=== PATIENT | female | born 1975 | race Caucasian/White ===

== ENCOUNTER 2024-04-29 13:39 | Inpatient (IN) ==
--- NOTE | 2024-04-29 13:54 | ED Triage Note ---
Date of Service April 29, 2024 Provider in Triage Author: Savannah Gonzalez History of Present Illness This patient was briefly evaluated while in triage. An abbreviated physical exam was performed. This patient is a 49-year-old Female who presents to the ED for evaluation sore throat x 2 days, physician is concerned for a COAL DIGGER - hx of 3 last year, treated supportively, never had I&D strep negative on Taltz for Physical Exam GENERAL: NAD ENT: left tonsillar/peritonsillar erythema, swelling, uvular deviation to the left, no trismus CARDIOVASCULAR: RRR RESPIRATORY: CTA Initial orders for labs and / or imaging were placed and patient was placed in the waiting area until a bed is available. Please see further documentation for the full ED course.
[2024-04-29 14:56] LABS: iSTAT Creatinine 0.8 mg/dl (0.6-1.3); iSTAT Ionized Calcium 1.16 mmol/l (1.12-1.32); iSTAT Potassium 4.2 mmol/L (3.3-5.0)
[2024-04-29 15:06] LABS: Basophils # (auto) 0.04 K/uL (0.00-0.20); Basophils % (auto) 0.3 %; Eosinophils # (auto) 0.09 K/uL (0.00-0.50); Eosinophils % (auto) 0.7 %; Hematocrit (blood only) 42.9 % (37.0-47.0); Hemoglobin 14.3 g/dl (12.0-16.0); Immature Granulocytes # (auto) 0.03 K/uL (0.01-0.20); Immature Granulocytes % (auto) 0.2 %; Lymphocytes # (auto) 1.07 K/uL (1.20-3.40); Lymphocytes % (auto) 8.8 %; Mean Corpuscular Hemoglobin 27.8 pg (25.0-34.0); Mean Corpuscular Hgb Conc 33.3 g/dL (32.0-36.0); Mean Corpuscular Volume 83.3 fL (80.0-100.0); Mean Platelet Volume 11.4 fL (9.4-12.4); Monocytes # (auto) 0.95 K/uL (0.11-0.59); Monocytes % (auto) 7.8 %; Neutrophils % (auto) 82.2 %; Platelet Count 231 K/uL (130-400); RDW Coefficient of Variation 13.3 % (11.5-14.5); RDW Standard Deviation 41.1 fL (36.4-46.3); Red Blood Count 5.15 M/uL (4.20-5.40); White Blood Count 12.18 K/ul (4.8-10.8)
[2024-04-29] MEDS: OPTIRAY 320 100ml IV ONE (15:10)
[2024-04-29 15:16] LABS: Albumin Globulin Ratio 1.3 (0.9-2); Albumin Level 4.4 gm/dl (3.4-5.0); BUN Creatinine Ratio 14.1 (10-20); Bilirubin,Total 0.9 mg/dl (0.2-1.0); Calcium 9.8 mg/dl (8.6-10.3); Creatinine Clr Calc Pharmacy 95.9 ml/min; Globulin 3.5 gm/dl (2.5-4.0); Potassium 4.2 mmol/L (3.5-5.1); Total Protein 7.9 gm/dl (6.0-8.3)
[2024-04-29] MEDS: SODIUM CHLORIDE 0.9% 1,000 ML IV ONE (15:25)
[2024-04-29 15:29] LABS: Prothrombin Time 10.9 Seconds (9.0-12.0)
--- NOTE | 2024-04-29 15:55 | CT Scan Report ---
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 A dose lowering technique was used consistent with the principals of BERNARDO. FINDINGS: The imaged intracranial structures appear unremarkable. Unremarkable parotid,, submandibular and thyr oid glands. The vasculature of the neck is within normal limits. Enlargement of the left greater than right palatine tonsils. There is a peripherally enhancing thick-walled complex left peritonsillar co llection measuring 1.6 x 2.1 x 2.5 cm on image 117 series 3. There is moderate mass effect upon the a djacent airway with partial effacement.r bilateral cervical chain lymph nodes measure up to approxima tely 11 mm in short axis. Prevertebral tissues are unremarkable. Lung apices appear clear. No pneumothorax. Moderate intervertebral disc space narrowing with circumfe rential disc osteophyte complex at C6/C7. No acute fracture. IMPRESSION: 1. Acute tonsillitis with 2.5 cm left peritonsillar abscess resulting in moderate narrowing of the ai rway. 2. Enlarged cervical chain lymph nodes are likely reactive. ACT 112: Negative or not required by law. The above report was generated using voice recognition software. It may contain grammatical, syntax o r spelling errors. Electronically signed by: Sascha Romero M.D. 04/29/2024 3:53 PM
--- NOTE | 2024-04-29 15:57 | Emergency Department Note ---
History of Present Illness General Chief complaint: Sore Throat Stated complaint: TONSILITIS WITH AN ABCESS, SORE THROAT Time Seen by Provider: 04/29/24 15:10 History of Present Illness Maximum Pain Intensity: 8 This is a 49-year-old female that presents to the emergency department via private vehicle with complaints of "sore throat". The patient notes that she was referred in for suspected peritonsillar abscess on the left. Sore throat began on Saturday. It is unilateral in nature. She does have a history of CASING PULLER, which have responded well to medical therapy without requiring I&D. Patient notes she is currently on Taltz for ankylosing spondylitis. She is not currently antibiotics. She denies any fever. She notes decreased oral intake secondary to pain and has had very little to drink today. Home Medications Medication Instructions Recorded Confirmed Type atorvastatin 20 mg tablet (Lipitor) 20 mg PO QAM 03/31/24 04/29/24 History bupropion HCl 300 mg 24 hr tablet, 300 mg PO QAM 03/31/24 04/29/24 History extended release (Wellbutrin XL) diclofenac sodium 75 mg 75 mg PO BID 03/31/24 04/29/24 History tablet,delayed release ixekizumab 80 mg/mL subcutaneous 80 mg subcut UD 03/31/24 04/29/24 History auto-injector (Taltz Autoinjector) levocetirizine 5 mg tablet (Xyzal) 5 mg PO QAM 03/31/24 04/29/24 History pantoprazole 40 mg tablet,delayed 40 mg PO QAM 03/31/24 04/29/24 History release (Protonix) pregabalin 100 mg capsule (Lyrica) 100 mg PO BID 03/31/24 04/29/24 History Allergies Allergy/AdvReac Type Severity Reaction Status Date / Time amoxicillin Allergy Rash Verified 04/13/24 08:35 contact metal agent AdvReac contact Verified 04/13/24 08:35 dermatitis Past Med/Surg History Problem List (Updated 04/30/24 @ 00:13 by Lucas Barajas PA-C) Tobacco use Ankylosing spondylitis Elevated blood pressure reading Tonsillitis (Acute) Peritonsillar abscess (Acute) Symptomatic cholelithiasis Medical History Depression with anxiety Fatty liver Cigarette smoker Morbid obesity History of mononucleosis dx 03/29/24; pt was prescribed Cefdinir x 10d Neuropathy Chronic pain Spondyloarthritis Anxiety and depression Hyperlipidemia GERD (gastroesophageal reflux disease) Surgical History History of cholecystectomy History of endometrial ablation History of open reduction and internal fixation (ORIF) procedure right ankle > hardware intact History of esophagogastroduodenoscopy (EGD) Hx of colonoscopy ~2022 Hx of LASIK Social History Smoking Status: Current every day smoker Tobacco Type: Cigarettes Cigarettes Per Day: 1/2 PPD; Second Hand Exposure: No; Do You Dip or Chew Tobacco: No; Hx Alcohol Use: No Hx Substance Use: Yes Prescribed Medications: Marijuana Last Used Substance: Days (ago) Last Used Substance Other:: uses daily Substance Use Type Other:: medical marijuana Preferred Language: Emir[place] Communication Ability: Effective Photo Printer Required: No Beliefs That Will Affect Care: None Current Living Situation: Spouse Feels Safe at Home: Yes Assistive Devices: Cane Review of Systems A total of 10 systems reviewed and were otherwise negative Physical Exam Vital Signs Vital Signs - 24 hr 04/29/24 13:52 04/29/24 16:40 Temperature 37.6 C H Temperature Source Oral Pulse Rate 120 H Pulse Rate [Finger] 102 H Respiratory Rate 18 15 Respiratory Effort / Characteristics Non-Labored Spontaneous Respiratory Depth Normal Blood Pressure 175/114 H Blood Pressure [Right Arm] 172/110 H Blood Pressure Mean 134 Blood Pressure Mean [Right Arm] 130 Pulse Oximetry 95 99 Oxygen Delivery Method Room Air Room Air Sepsis Recent Fever Within 48 Hours No Sepsis New/Unexplained Change in Mental Status No Sepsis Action Taken by Nursing No Action Required VITAL SIGNS - Vital signs and nursing notes were reviewed. Tachycardic, borderline febrile. GENERAL -49-year-old female appearing her stated age who is in no acute distress. Communicates well with provider and answers questions appropriately. SKIN - Without rashes. No meningeal or petechial rash. HEAD - NC/AT. EYES - PERRL with EOMI bilaterally. Sclera anicteric. EARS - No deformities of external structures noted on gross examination bilaterally. External auditory canals without discharge or otorrhea. Tympanic membranes pearly hernandez without retraction or bulging. No fluid or purulent material visualized behind the TM. Handle of malleus, umbo, cone of light, pars tensa/flaccid all easily visualized. NOSE - Midline and without cyanosis. No epistaxis or purulent drainage noted. Septum midline without deviation or septal hematoma noted. MOUTH/OROPHARYNX - Without perioral cyanosis. Buccal mucosa pink and moist and without leukoplakia. Tongue midline with equal elevation of palate bilaterally. There is asymmetric left-sided tonsillar edema, erythema with soft palate involvement. Uvula is midline. There is no drooling. No stridor. Mild trismus. No wheezing. No tripoding. Mild muffled voice noted. Fair dentition noted. NECK - Neck with FROM. Left greater than right anterior cervical lymphadenopathy noted. No nuchal rigidity. LUNGS - Chest wall symmetric without accessory muscle use, intercostals retractions, or central cyanosis. Normal vesicular breath sounds CTA B/L. No wheezes, rales, or rhonchi appreciated. CARDIAC - RRR NEUROLOGIC - Cranial nerves II through XII grossly intact. PSYCH -alert, oriented and pleasant on exam Course Administered Medications Diclofenac Sodium (Diclofenac Sodium 75 Mg Tabcr) 75 mg PO BID [facility] Stop: 05/29/24 20:59 Last Admin: 04/29/24 21:33 Dose: 75 mg Documented By: KELLIE Sodium Chloride (Nss) 1,000 mls @ 60 mls/hr IV .[id number] [facility] Stop: 04/30/24 09:09 Last Admin: 04/29/24 18:20 Dose: 125 mls/hr Documented By: DONATO Clindamycin Phosphate (Cleocin/D5w) 300 mg in 50 mls @ 100 mls/hr IV Q8H [facility] Stop: 05/10/24 00:00 Last Infusion: 04/29/24 23:24 Dose: Infused Documented By: Admin: 04/29/24 22:53 Dose: 100 mls/hr Documented By: KELLIE Lactobacillus Acidophilus (Advanced Probiotic 625 Mg Capsule) 1,250 mg PO DAILY [facility] Stop: 05/29/24 18:14 Last Admin: 04/29/24 18:29 Dose: 1,250 mg Documented By: DONATO Nicotine (Nicotine 14 Mg/24 Hr Patch) 1 patch TD QAM [facility] Stop: 05/29/24 18:14 Last Admin: 04/29/24 18:29 Dose: 1 patch Documented By: DONATO Pregabalin (Pregabalin 100 Mg Cap) 100 mg PO BID [facility] Stop: 05/29/24 20:59 Last Admin: 04/29/24 21:34 Dose: 100 mg Documented By: KELLIE Discontinued Medications Acetaminophen (Acetaminophen 500 Mg Tab) 1,000 mg PO NOW STA Stop: 04/29/24 17:21 Last Admin: 04/29/24 17:41 Dose: 1,000 mg Documented By: VICKIE Dexamethasone Sodium Phosphate (DexamethasonePf 10 Mg/Ml Vial) 10 mg IV NOW ONE Stop: 04/29/24 16:50 Last Admin: 04/29/24 17:00 Dose: 10 mg Documented By: VICKIE Sodium Chloride (Nss) 1,000 mls @ 999 mls/hr IV .Q1H1M ONE Stop: 04/29/24 16:17 Last Infusion: 04/29/24 16:38 Dose: Infused Documented By: Admin: 04/29/24 15:25 Dose: 999 mls/hr Documented By: VICKIE Clindamycin Phosphate (Cleocin/D5w) 900 mg in 50 mls @ 100 mls/hr IV NOW ONE Stop: 04/29/24 15:46 Last Infusion: 04/29/24 17:11 Dose: Infused Documented By: Admin: 04/29/24 16:39 Dose: 100 mls/hr Documented By: VICKIE Ioversol (Optiray 320 100ml) 90 ml IV ONCE ONE Stop: 04/29/24 15:11 Last Admin: 04/29/24 15:10 Dose: 90 ml Documented By: JUSTIN Morphine Sulfate (Morphine Sulfate 2 Mg/Ml Carp) 2 mg IV NOW STA Stop: 04/29/24 16:55 Last Admin: 04/29/24 17:00 Dose: 2 mg Documented By: VICKIE Zolpidem Tartrate (Zolpidem Tartrate 5 Mg Tab) 5 mg PO NOW STA Stop: 04/29/24 22:26 Last Admin: 04/29/24 22:53 Dose: 5 mg Documented By: KELLIE Medical Decision Making Laboratory Data 04/29/24 14:38 04/29/24 14:38 Lab Results 04/29/24 04/29/24 Range/Units 14:38 14:44 WBC 12.18 H (4.8-10.8) K/ul RBC 5.15 (4.20-5.40) M/uL Hgb 14.3 (12.0-16.0) g/dl POC Hgb 15.0 (12.0-16.0) g/dl Hct 42.9 (37.0-47.0) % POC Hct 44 (37-47) % MCV 83.3 (80.0-100.0) fL MCH 27.8 (25.0-34.0) pg MCHC 33.3 (32.0-36.0) g/dL RDW Std Deviation 41.1 (36.4-46.3) fL RDW Coeff of Tee 13.3 (11.5-14.5) % Plt Count 231 (130-400) K/uL MPV 11.4 (9.4-12.4) fL Immature Gran % (Auto) 0.2 % Neut % (Auto) 82.2 % Lymph % (Auto) 8.8 % [place] % (Auto) 7.8 % Eos % (Auto) 0.7 % Baso % (Auto) 0.3 % Neut # (Auto) 10.00 H (1.40-6.50) K/uL Lymph # (Auto) 1.07 L (1.20-3.40) K/uL [place] # (Auto) 0.95 H (0.11-0.59) K/uL Eos # (Auto) 0.09 (0.00-0.50) K/uL Baso # (Auto) 0.04 (0.00-0.20) K/uL Immature Gran # (Auto) 0.03 (0.01-0.20) K/uL PT 10.9 (9.0-12.0) Seconds INR 1.0 (0.9-1.1) POC Sodium 139 (135-144) mmol/L Sodium 138 (136-145) mmol/L POC Potassium 4.2 (3.3-5.0) mmol/L Potassium 4.2 (3.5-5.1) mmol/L POC Chloride 103 (101-112) mmol/L Chloride 102 (98-107) mmol/L Carbon Dioxide 26 (21-32) mmol/L POC Total CO2 23 L (24-31) mmol/L Anion Gap 10 (3-11) POC Anion Gap 18.0 (16-25) mmol/L POC BUN 11 (7-18) mg/dl BUN 12 (6-23) mg/dl Creatinine 0.85 (0.6-1.2) mg/dl POC Creatinine 0.8 (0.6-1.3) mg/dl Est Cr Clr Drug Dosing 95.9 ml/min eGFR 83.93 BUN/Creatinine Ratio 14.1 (10-20) Glucose 130 H (70-99(Fasting)) mg/dl POC Glucose (other) 134 H (70-99) mg/dl Calcium 9.8 (8.6-10.3) mg/dl POC Ioniz Calcium Ayanna 1.16 (1.12-1.32) mmol/l Total Bilirubin 0.9 (0.2-1.0) mg/dl AST 17 (13-39) U/L ALT 27 (7-52) U/L Alkaline Phosphatase 107 H (34-104) U/L Total Protein 7.9 (6.0-8.3) gm/dl Albumin 4.4 (3.4-5.0) gm/dl Globulin 3.5 (2.5-4.0) gm/dl Albumin/Globulin Ratio 1.3 (0.9-2) Imaging Data Radiologist's Impression: Soft Tissue Neck CT 04/29/24 13:56 CT soft tissue neck w con HISTORY: 49 years-old Female left CASING PULLER acute throat pain with dysphagia COMPARISON: None TECHNIQUE: Multiple axial CT images of the soft tissues of the neck were obtained with IV contrast. A dose lowering technique was used consistent with the principals of ALARA. FINDINGS: The imaged intracranial structures appear unremarkable. Unremarkable parotid,, submandibular and thyroid glands. The vasculature of the neck is within normal limits. Enlargement of the left greater than right palatine tonsils. There is a peripherally enhancing thick-walled complex left peritonsillar collection measuring 1.6 x 2.1 x 2.5 cm on image 117 series 3. There is moderate mass effect upon the adjacent airway with partial effacement.r bilateral cervical chain lymph nodes measure up to approximately 11 mm in short axis. Prevertebral tissues are unremarkable. Lung apices appear clear. No pneumothorax. Moderate intervertebral disc space narrowing with circumferential disc osteophyte complex at C6/C7. No acute fracture. IMPRESSION: 1. Acute tonsillitis with 2.5 cm left peritonsillar abscess resulting in moderate narrowing of the airway. 2. Enlarged cervical chain lymph nodes are likely reactive. ACT 112: Negative or not required by law. The above report was generated using voice recognition software. It may contain grammatical, syntax or spelling errors. Electronically signed by: Sascha Romero M.D. 04/29/2024 3:53 PM MDM Narrative Patient was seen and evaluated as above in room D03b. Review was performed of triage nursing notes and vital signs. I did review pertinent previous visits and patient history. After obtaining a thorough history and physical examination the above work up was performed. Patient presents to us today for evaluation of a sore throat, left side with evidence of CASING PULLER on exam. Patient was seen during a period of elevated volume and acuity and already had orders as placed from triage. Labs reveal leukocytosis 12.18. No anemia. No emergent metabolic disturbance. Mild hyperglycemia 130. CT scan of the soft tissue of the neck revealed acute tonsillitis with a 2.5 cm left peritonsillar abscess resulting in moderate narrowing of the airway. Enlarged cervical chain lymph nodes likely reactive per radiologist. I agree with these findings. The patient does have an allergy noted to amoxicillin causing hives she notes. Will avoid penicillins at this time. Clindamycin ordered and I reviewed benefit versus risk with the patient. I discussed presentation with the on-call ENT specialist, Dr. Rossi. We discussed options. I did consider I&D here by ED personnel however I do believe that either way patient requires hospitalization for IV antibiotics noting her tachycardia, findings on examination, CT findings and also being on Taltz. I discussed the case with the hospitalist service and at this time we will hold off on I&D at bedside, rather will allow the patient to receive IV antibiotics and IV steroids overnight with potential I&D in the a.m. by ENT. Please refer to further documentation regarding her stay. I did order IV dexamethasone in addition to the IV clindamycin and I also ordered the patient IV fluids. GCS: 15 In the evaluation and treatment of this patient the following differential diagnoses were entertained: Strep pharyngitis, viral pharyngitis, allergic rhinitis with post nasal drip, airway obstruction, head/neck neoplasias, GERD, peritonisllar abscess, epiglottitis, dawt-dacw-zil-mouth disease, herpes simplex, mononucleosis, pneumonia, retropharyngeal abscess, scarlet fever, among others. Impression & Plan Peritonsillar abscess, Tonsillitis Discharge Plan Visit Data Chief Complaint: Sore Throat Stated Complaint: TONSILITIS WITH AN ABCESS, SORE THROAT ED Provider: Maco Rea ED Midlevel Provider: Lucas Barajas Discharge Problem: Peritonsillar abscess, Tonsillitis Patient Disposition: Admitted As Inpatient Condition: Good Discharge Instructions Interventions: ED Discharge Assessment Last Done: 04/29/24 17:44
[2024-04-29] MEDS: CLINDAMYCIN/D5W 900 MG/50 ML BAG IV ONE (16:39)
[2024-04-29] MEDS: dexAMETHasone**PF** 10 MG/ML VIAL IV ONE (17:00)
[2024-04-29] MEDS: MoRPHine SULFATE 2 MG/ML CARP IV STA (17:00)
--- NOTE | 2024-04-29 17:00 | History & Physical Report ---
Date of Service April 29, 2024 Assessment & Plan (1) Peritonsillar abscess: (2) Tonsillitis: Plan: Patient is 49 year old female with PMH ankylosing spondylitis, seronegative polyarthritis, HLD, depression, anxiety, GERD, fatty liver disease presented to ER with c/o sore throat x 3 days, fever x 1 day. Today outpatient negative rapid strep with PCR pending. In ER T: 37.6C, P: 102, BP: 172/110, R: 15, O2 sat: 99% WBC: 12 In ER given clindamycin 900mg IV, dexamethasone 10mg IV, 1L NSS IVF Continue clindamycin Liquid diet as tolerated Will make NPO midnight Continue home diclofenac. oxycodone, morphine prn pain ENT consult. ER provider spoke with Dr Rossi with plan to see patient for likely I&D tomorrow CBC, BMP in am (3) Elevated blood pressure reading: Plan: BP elevated in ER. Likely situational and secondary to pain BP slowly improving after pain medication Control pain as above Monitor (4) Ankylosing spondylitis: Plan: #Seronegative polyarthritis Hold Taltz Continue home diclofenac, Lyrica (5) Hyperlipidemia: Plan: Continue atorvastatin (6) Anxiety and depression: Plan: Continue bupropion (7) Tobacco use: Plan: Nicotine patch DVT Prophylaxis SCDs for now Admit med tele Full Code as per discussion with pt Follows with Dr Hardy for routine care Pt was seen and care coordinated with Dr Ramsey. See addendum I spent a total of 60 minutes reviewing notes, outpatient records, labs, medication, coordinating, documenting and providing care for this patient excluding time spent in the performance of separately billed services and excluding time spent by another provider/QHP. History of Present Illness Chief Complaint: Sore throat Primary Care Provider: Zayda Hardy MD Patient is 49 year old female with PMH ankylosing spondylitis, seronegative polyarthritis, HLD, depression, anxiety, GERD, fatty liver disease presented to ER with c/o sore throat x 3 days. Reports fever started yesterday. Throat is more sore past 24 hours and pain with swallowing. Is able to swallow saliva but is painful. Taking chronic diclofenac with minimal relief. Seen in outpatient clinic today for sore throat and per chart review rapid strep negative today. PCR is pending. One month ago with sore throat and swollen tonsils with reported negative strep test and positive mono test. States was treated with cefdinir. Denies N/V/D/C, BUNCH, dizziness, syncope, vision changes, CP, SOB, cough, otalgia, rhinorrhea, abdominal pain, extremity weakness, extremity edema, rashes, urinary symptoms. Allergies Allergy/AdvReac Type Severity Reaction Status Date / Time amoxicillin Allergy Rash Verified 04/13/24 08:35 contact metal agent AdvReac contact Verified 04/13/24 08:35 dermatitis Home Medications Medication Instructions Recorded Confirmed Type atorvastatin 20 mg tablet (Lipitor) 20 mg PO QAM 03/31/24 04/29/24 History bupropion HCl 300 mg 24 hr tablet, 300 mg PO QAM 03/31/24 04/29/24 History extended release (Wellbutrin XL) diclofenac sodium 75 mg 75 mg PO BID 03/31/24 04/29/24 History tablet,delayed release ixekizumab 80 mg/mL subcutaneous 80 mg subcut UD 03/31/24 04/29/24 History auto-injector (Taltz Autoinjector) levocetirizine 5 mg tablet (Xyzal) 5 mg PO QAM 03/31/24 04/29/24 History pantoprazole 40 mg tablet,delayed 40 mg PO QAM 03/31/24 04/29/24 History release (Protonix) pregabalin 100 mg capsule (Lyrica) 100 mg PO BID 03/31/24 04/29/24 History Past Med/Surg History Problem List (Updated 04/29/24 @ 17:42 by Melani Alfaro PA-C) Tobacco use Ankylosing spondylitis Elevated blood pressure reading Tonsillitis Peritonsillar abscess Symptomatic cholelithiasis Medical History (Updated 04/29/24 @ 17:42 by Melani Alfaro PA-C) Depression with anxiety Fatty liver Cigarette smoker Morbid obesity History of mononucleosis dx 03/29/24; pt was prescribed Cefdinir x 10d Neuropathy Chronic pain Spondyloarthritis Anxiety and depression Hyperlipidemia GERD (gastroesophageal reflux disease) Surgical History (Updated 04/29/24 @ 17:38 by Melani Alfaro PA-C) History of cholecystectomy History of endometrial ablation History of open reduction and internal fixation (ORIF) procedure right ankle > hardware intact History of esophagogastroduodenoscopy (EGD) Hx of colonoscopy ~2022 Hx of LASIK Social History (Updated 04/29/24 @ 17:44 by Melani Alfaro PA-C) Smoking Status: Current every day smoker Tobacco Type: Cigarettes Cigarettes Per Day: 1/2 PPD; Second Hand Exposure: No; Do You Dip or Chew Tobacco: No; Hx Alcohol Use: No Hx Substance Use: Yes Prescribed Medications: Marijuana Last Used Substance: Days (ago) Last Used Substance Other:: uses daily Substance Use Type Other:: medical marijuana Preferred Language: [place] Communication Ability: Effective Breakfast Host Required: No Beliefs That Will Affect Care: None Current Living Situation: Spouse Feels Safe at Home: Yes Assistive Devices: Cane Review of Systems Review of Systems: All systems reviewed & are unremarkable except as noted in HPI & below Physical Exam Physical Exam: General: no distress, obese Head: normocephalic, atraumatic Eyes: conjunctiva non-injected, anicteric ENT: normal inspection external ears, nose, mucous membranes moist, +tonsillar edema with left greater than right, left tonsillar exudate, +soft palate edema left Neck: supple, trachea midline, +tender cervical lymphadenopathy Lungs: clear, no respiratory distress, no wheezing/rhonchi/rales CV: tachycardia, rate 102, no pretibial edema Abd: protuberant, normal BS, soft, non-tender Ext: no cyanosis, no calf tenderness Neuro: A&O x 3, no focal deficits noted, normal affect Skin: warm, dry Results & Data Results & Data Vital Signs (Past 12 Hours) Vital Signs Temp Pulse Pulse Resp BP BP Pulse Ox 04/29/24 16:40 102 H 15 172/110 H 99 04/29/24 13:52 37.6 C H 120 H 18 175/114 H 95 O2 Del Method 04/29/24 16:40 Room Air 04/29/24 13:52 Room Air Laboratory Results Short CBC 04/29/24 Range/Units 14:38 WBC 12.18 H (4.8-10.8) K/ul Hgb 14.3 (12.0-16.0) g/dl Hct 42.9 (37.0-47.0) % Plt Count 231 (130-400) K/uL BMP 04/29/24 14:38 Sodium 138 Potassium 4.2 Chloride 102 Carbon Dioxide 26 BUN 12 Creatinine 0.85 Glucose 130 H Calcium 9.8 Liver Function 04/29/24 Range/Units 14:38 Total Bilirubin 0.9 (0.2-1.0) mg/dl AST 17 (13-39) U/L ALT 27 (7-52) U/L Alkaline Phosphatase 107 H (34-104) U/L Albumin 4.4 (3.4-5.0) gm/dl Diagnostic Findings Soft Tissue Neck CT 04/29/24 13:56 CT soft tissue neck w con HISTORY: 49 years-old Female left STRETCH BOX TENDER acute throat pain with dysphagia COMPARISON: None TECHNIQUE: Multiple axial CT images of the soft tissues of the neck were obtained with IV contrast. A dose lowering technique was used consistent with the principals of BERNARDO. FINDINGS: The imaged intracranial structures appear unremarkable. Unremarkable parotid,, submandibular and thyroid glands. The vasculature of the neck is within normal limits. Enlargement of the left greater than right palatine tonsils. There is a peripherally enhancing thick-walled complex left peritonsillar collection measuring 1.6 x 2.1 x 2.5 cm on image 117 series 3. There is moderate mass effect upon the adjacent airway with partial effacement.r bilateral cervical chain lymph nodes measure up to approximately 11 mm in short axis. Prevertebral tissues are unremarkable. Lung apices appear clear. No pneumothorax. Moderate intervertebral disc space narrowing with circumferential disc osteophyte complex at C6/C7. No acute fracture. IMPRESSION: 1. Acute tonsillitis with 2.5 cm left peritonsillar abscess resulting in moderate narrowing of the airway. 2. Enlarged cervical chain lymph nodes are likely reactive. ACT 112: Negative or not required by law. The above report was generated using voice recognition software. It may contain grammatical, syntax or spelling errors. Electronically signed by: Sascha Romero M.D. 04/29/2024 3:53 PM Supervising Physician Co-Signing Physician Notes 49 year old female with PMH ankylosing spondylitis, seronegative polyarthritis, HLD, depression, anxiety, GERD, fatty liver disease presented to ER with c/o sore throat x 3 days, fever x 1 day. Noted to have peritonsillar abscess in ED after CT neck. labs and imagings reviewed. c/w clindamycin. ENT eval in AM for I and D. NPO. IVF. Hypertensive urgency, likely situational. prn bp meds. pain control. On exam: GENERAL: Alert and oriented x3. NAD, on RA. HEENT: No pallor, no icterus. Pupils equal, round and reactive to light. Oral mucosa moist. left tonsil erythematous /swollen. NECK: No JVD, no neck masses. HEART: S1 and S2 heard. Regular rate and rhythm. No murmur, no gallop. RESPIRATORY SYSTEM: Normal AP diameter. No accessory muscle use. No wheezing, no crackles. ABDOMEN: Soft, bowel sounds present, nontender, no distention. CENTRAL NERVOUS SYSTEM: No facial droop. Speech is clear. Obeys simple commands. Moves extremities. EXTREMITIES: No edema, no erythema seen. I have seen and examined the patient and have discussed the case with the provider above. I agree with the assessment and plan as stated. Time spent: 22 min.
[2024-04-29] MEDS: ACETAMINOPHEN 500 MG TAB PO STA (17:41)
[2024-04-29] MEDS ORDERED: ACETAMINOPHEN 325 MG TAB PO PRN (18:05)
[2024-04-29] MEDS ORDERED: ONDANSETRON INJ 2 MG/ML 2 ML VIAL IV PRN (18:05)
[2024-04-29] MEDS ORDERED: MoRPHine SULFATE 4 MG/ML 1 ML CARP\\VIAL IV PRN (18:05)
[2024-04-29] MEDS ORDERED: oxyCODONE HCL IR 5 MG TAB (IMMEDIATE RELEASE) PO PRN (18:05)
[2024-04-29] MEDS ORDERED: POLYETHYLENE (MIRALAX) 17 GM PACK PO PRN (18:05)
[2024-04-29] MEDS ORDERED: CLINDAMYCIN/D5W 300 MG/50 ML BAG IV SCH (18:15)
[2024-04-29] MEDS: SODIUM CHLORIDE 0.9% 1,000 ML IV SCH (18:20)
[2024-04-29] MEDS: ADVANCED PROBIOTIC 625 MG CAPSULE PO SCH (18:29)
[2024-04-29] MEDS: NICOTINE 14 MG/24 HR PATCH TD SCH (18:29)
[2024-04-29] MEDS ORDERED: LABETALOL HCL IV 5 MG/ML 20ML IV PRN (19:34)
[2024-04-29] MEDS: DICLOFENAC SODIUM 75 MG TABCR PO SCH (21:33)
[2024-04-29] MEDS: PREGABALIN 100 MG CAP PO SCH (21:34)
--- OUTSIDE RECORDS SUMMARY | 2024-04-29 21:40 | External Medical Summary | Summary of Care ---
Author Name Unknown Organization [facility] Address [address] [place] [address] Phone [phone] Care Team Providers Care [facility] System Director Name Role Phone Zayda Hardy MD Primary Care Provide r Reason for Visit * Reason Onset Date Comments Med Request 01/31/2024 Encounter Details Date Type Department Care Team (Late st Contact Info) Description 01/31/2024 Telephone Rheumatology, [place] [address], [place] [id number] Mike Leos [facility] [address] [place] [address] Med Request Allergies Active Allergy Reactions Criticality Noted Date Comments Amoxicillin Low 07/20/2021 Mild rash- long time ago documented as of this encounter (statuses as of 02/03/2024) Medications NATURAL SUPPLEMENT Take by mouth daily . [facility] Active buPROPion HCl ER (SR) 150 MG Oral Tablet Extended Release 12 Hour (Wellbutrin SR) 1 daily in the evening 03/22/19 23 Active Pantoprazole Sodium 40 MG Oral Tablet Delayed Release (Protonix) Take 1 Tablet by mouth in the morning. 90 Tablet 3 07/26/19 24 Active Diclofenac Sodium 75 MG Oral Tablet Delayed Release (Voltaren)Indication s:Chronic pain syndrome,Primary generalized (osteo)arthritis Take 1 Tablet by mouth 2 times a day with morning and evening meals. 60 Tablet 5 08/16/19 24 Active Levocetirizine Dihydrochloride 5 MG Oral Tablet Take 1 Tablet by mouth in the morning. 90 Tablet 1 09/30/19 24 Active Cyclobenzaprine HCl 10 MG Oral Tablet (Flexeril)Indication s:Inflammatory arthritis Take 1 Tablet by mouth 2 times a day as needed for Muscle spasms. 60 Tablet 1 09/30/19 24 Active Atorvastatin Calcium 10 MG Oral Tablet (Lipitor)Indications :Mixed dyslipidemia Take 1 Tablet by mouth in the morning. 90 Tablet 10/29/19 24 Active Pregabalin 50 MG Oral Capsule (Lyrica) Take 50 mg in the morning by mouth and 100 mg in the evening by mouth daily. 270 Capsule 1 11/08/19 24 Active buPROPion HCl ER (XL) 300 MG Oral Tablet Extended Release 24 Hour (Wellbutrin XL) Take 1 Tablet by mouth in the morning. 90 Tablet 1 12/03/19 24 Active Betamethasone Dipropionate 0.05 % External Cream (Diprosone) Apply topically to affected area 2 times a day. Apply to affected area Active Mupirocin 2 % External Kit Apply topically to affected area. Active predniSONE 5 MG Oral Tablet (Deltasone) Take 4 Tablets by mouth daily for 10 days, THEN 3 Tablets daily for 10 days, THEN 2 Tablets daily for 10 days, THEN 1 Tablet daily for 10 days. 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 11/07/2022 Mixed dyslipidemia 03/28/2022 Primary generalized (osteo)arthritis 03/26/2022 Tobacco use disorder 03/26/2022 Anxiety 01/25/2022 Major depressive disorder wi th single episode, in partial remission 01/25/2022 Irritable bowel syndrome wit h both constipation and diarrhea 01/25/2022 documented as of this encounter (statuses as of 02/03/2024) Resolved Problems Problem Noted Date Diagnosed Date Resolved Date Inflammatory arthritis 03/26/202207/23 documented as of this encounter (statuses as of 02/03/2024) Immunizations Name Administration Dates Next Due COVID-19 mRNA, LNP-s, No Pre serve, 2-Dose Series (M-DAQ) 08/24/2020,08/03/2020 Zoster Vaccine Recombinant (Shingrix) 06/01/2022 documented as of this encounter Social History Tobacco Use Types Packs/Day Years Used Date Smoking Tobacco: Every Day Cigarettes Smokeless Tobacco: Never Comments:Also [employer] [facility] Alcohol Use Standard Drinks/Week Comments Yes 0 (1 standard drink = 0.6 oz pur e alcohol) Social Hunger Vital Sign Answer Date Recorded Within the past 12 months, y ou worried that your food would run out before you got the money to buy more. Never true 07/16/19 24 Within the past 12 months, t he food you bought just didn't last and you didn't have money to get more. Never true 07/16/2023 Childcare Answer Date Recorded Do you feel overwhelmed with taking care of a child, family member or friend? No 07/16/2023 Does your family need help f inding childcare? (Household - for ages 0-17 years) Not on file 07/16/2023 Clothing Answer Date Recorded Have you been unable to get clothing when it was really needed? No 07/16/2023 Is your family able to get c lothes or diapers when needed? (Household - for ages 0-17 years) Not on file 07/16/2023 Personal Safety Answer Date Recorded Do you feel unsafe or have concerns for your saf ety? No 07/16/2023 Do you have concerns for you r family's safety? (Household - for ages 0-17 years) Not on file 07/16/2023 Utilities Answer Date Recorded Do you have trouble paying y our heating, water, or electric bill? No 07/16/2023 Is your family able to pay t he heat, water, or electric bill? (Household - for ages 0-17 years) Not on file 07/16/2023 Does your family have access to good internet? (Household - for ages 0-17 years) Not on file 07/16/2023 Employment Status Answer Date Recorded Are you unemployed or without regular income? No 07/16/2023 Does the household have a [facility] source of income? (Household - for ages 0-17 years) Not on file 07/16/2023 Social Connections Answer Date Recorded How often do you feel lonely or isolated from those around you? Sometimes 07/16/2023 Financial Resource Strain Answer Date R ecorded Do you have any trouble payi ng for your medications, or do you think you might in the future? No 07/16/2023 Does your family have troubl e paying for medicine? (Household - for ages 0-17 years) Not on file 07/16/2023 Transportation Needs Answer Date Record ed READ ONLY Do you have troubl e getting a ride to medical visits or work? Never True 07/16/2023 Does your family have a hard time getting a ride to doctors visits? (Household - for ages 0-17 years) Not on file 07/16/2023 Has lack of transportation k ept you from medical appointments, meetings, work, or from getting things needed for daily living? Check all that apply. (Adult - for ages 18 years and over) Not on file 07/16/2023 Do you (or your family) have trouble finding or paying for a ride (transportation)? (Household - for ages 0-17 years) Not on file 07/16/2023 Housing Stability Answer Date Recorded Do you currently live in a s helter or have no steady place to sleep at night? No 07/16/2023 READ ONLY Do you think you a re at risk of becoming homeless? No 07/16/2023 Does your family worry about paying for your home or becoming homeless? (Household - for ages 0-17 years) Not on file 0 07/16/2023 Are you homeless or worried that you might be in the future? (Adult - for ages 18 years and over) Not on file Are you (or your family) alise eless or worried that you might be in the future? (Household - for ages 0-17 years) Not on file Food Insecurity Answer Date Recorded Do you need food for this week? No 07/16/2023 Are you able to get enough f ood for your family? (Household - for ages 0-17 years) Not on file 07/16/2023 Does your family need food t his week? (Household - for ages 0-17 years) Not on file 07/16/2023 Do you always have enough fo od for your family? (Household - for ages 0-17 years) Not on file 07/16/2023 Comments No Sex and Gender Information Value Date Recorded Sex Assigned at Female 12/28/2021 1:20 PM EDT Legal Sex Female 2:59 PM EDT Gender Identity Female 12/28/2021 1:20 PM EDT Sexual Orientation Straight 12/28/2021 1: 20 PM EDT documented as of this encounter Miscellaneous Notes * Telephone Encounter - Kelsi aPgan RPh - 02/03/2024 10:55 AM EST Prescriptions sent * Addendum Note - Kelsi Pagan RPh - 02/03/2024 10:55 AM ESTAddended by: KELSI SARAVIA on: 02/03/2024 10:55 AM Modules accepted: Orders * Telephone Encounter - Mahi Perez OSA - 02/03/2024 10:43 AM EST Zabrina calling from [facility] [phone], calling in regards to Taltz 80 MG/ML Subcutaneous Solution Auto-injector (Ixekizumab). It appeared this had been sent to [facility], however, they are no longer able to fill this medication. Please re send it to [facility] to [facility] . Please advise Thank-you! Mahi * Telephone Encounter - Mike Leos RPh - 01/31/2024 9:10 AM EST Medication/Dose/Route/Interval: Ixekizumab 160 mg once, followed by 80 mg every 4 weeks- script sent Mike Leos PharmHi DHi, [facility] Clinical Pharmacist 01/31/2024,9:13 AM documented in this encounter Plan of Treatment Upcoming Encounters Date Type Department Care Team (Late st Contact Info) Description 02/27/2024 10:40 AM EST Office Visit Family Medicine [address] [place] [phone] Zayda Hardy MD [address] [place] [address] [place] [id number] 03/20/2024 2:30 PM EST Telemedicine Gastroenterology [address] [place] [id number] Teresa Yadav CRNP [address] [place] [id number] 04/27/2024 10:30 AM EST Office Visit Rheumatology [address] [place] [phone] Hesham Doll CRNP [address] [place] [address] Scheduled Procedures Name Priority Associated Diagnoses Date/Ti me COLONOSCOPY FLEXIBLE PROXIMA L DIAGNOSTIC Recall Screening for colon cancer Health Maintenance Due Date Last Done Comments Pneumococcal Vaccine: Pediatrics (0 to 5 Years) and At-Risk Patients (6 to 64 Years) (1 of 2 - PCV) 1981 Depression Monitoring 1987 HIV Screening 1990 DTap/Tdap Vaccines (1 - Tdap) 1994 Hepatitis B Vaccine (1 of 3 - 19+ 3-dose series) 1994 Pap Smear 01/31/1996 Cervical Cancer Screening 2005 HPV/Co-Test 2005 Cologuard 01/31/2020 Fecal Occult Blood Test 01/31/2020 Sigmoidoscopy 01/31/2020 Mammogram 09/15/2023 09/14/2022, 05/16, 09/08/2019, Additional history exists COVID-19 Vaccine (2023- season) 2023 08/24/2020, 08/03/2020 Influenza Vaccine (FLU shot) (#1) 2023 04/05/2014 Diabetes Screening 02/08/2026 02/08/2023, 0 09/12/2021, 08/24/2021 Lipid Panel 02/09/2028 02/08/2023, 01/25/2022 Colonoscopy 02/22/2033 02/22/2023, 02/22/2023 Colorectal Cancer Screening 02/22/2033 Hepatitis C Screening Completed 08/24/2021 HPV (Gardasil) Vaccine Aged Out No lo nger eligible based on patient's age to complete this topic MENINGOCOCCAL (MENACTRA/MENVEO) Aged Out No longer eligible based on patient's age to complete this topic documented as of this encounter Medical Devices Not on filedocumented as of this encounter Visit Diagnoses Diagnosis 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
--- OUTSIDE RECORDS SUMMARY | 2024-04-29 21:40 | External Medical Summary | Summary of Care ---
Author Name Unknown Organization [facility] Address [address] [facility] [place] [address] Phone [phone] Care Team Providers Care Decorating Equipment Setter Name Role Phone Zayda Hardy MD Primary Care Provide r Reason for Visit * Reason Onset Date Comments Medication Refill 02/26/2024 Encounter Details Date Type Department Care Team (Late st Contact Info) Description 02/26/2024 Refill Rheumatology [address] [place] [phone] Hesham Castillo CRNP [address] [facility] [place] [address] Chronic pain syndrome; Primary generalized (osteo)arthritis Allergies Active Allergy Reactions Criticality Noted Date Comments Amoxicillin Low 07/20/2021 Mild rash- long time ago documented as of this encounter (statuses as of 03/02/2024) Medications NATURAL SUPPLEMENT Take by mouth daily . [employer] Active Pantoprazole Sodium 40 MG Oral Tablet Delayed Release (Protonix) Take 1 Tablet by mouth in the morning. 90 Tablet 3 07/26/19 24 Active Levocetirizine Dihydrochloride 5 MG Oral Tablet Take 1 Tablet by mouth in the morning. 90 Tablet 1 09/30/19 24 Active Cyclobenzaprine HCl 10 MG Oral Tablet (Flexeril)Indication s:Inflammatory arthritis Take 1 Tablet by mouth 2 times a day as needed for Muscle spasms. 60 Tablet 1 09/30/19 24 Active Pregabalin 50 MG Oral Capsule [...] for 10 days. 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 1 mL 5 02/19/20 24 Active Additional Information Patient not taking.Reported on 02/27/2024 Diclofenac Sodium 75 MG Oral Tablet Delayed Release (Voltaren)Indication s:Chronic pain syndrome,Primary generalized (osteo)arthritis Take 1 Tablet by mouth 2 times a day with morning and evening meals. 60 Tablet 2 02/28/20 24 Active Diclofenac Sodium 75 MG Oral Tablet Delayed Release (Voltaren)Indication s:Chronic pain syndrome,Primary generalized (osteo)arthritis Take 1 Tablet by mouth 2 times a day with morning and evening meals. 60 Tablet 5 08/16/19 24 024 Disconti nued(Ref ill) documented as of this encounter (statuses as of 03/02/2024) Active Problems Problem Noted Date Diagnosed Date [...] as of this encounter (statuses as of 03/02/2024) Resolved Problems Problem Noted Date Diagnosed Date Resolved Date Inflammatory arthritis 03/26/202207/23 documented as of this encounter (statuses as of 03/02/2024) Immunizations Name Administration Dates Next Due COVID-19 mRNA, LNP-s, No Pre serve, 2-Dose Series ([employer]) 08/24/2020,08/03/2020 Zoster Vaccine Recombinant (Shingrix) 06/01/2022 documented [...] No 07/16/2023 Does the household have a re gular source of income? (Household - for ages [...] encounter Miscellaneous Notes * Telephone Encounter - Tone Louise - 03/02/2024 3:08 PM EST Received message from [facility] regarding patient needing labs. Patient was notified. Successfully contacted patient and provided [facility] message. * Telephone Encounter - Dany Moore [facility] - 02/28/2024 12:49 PM EST Signed Prescriptions: Disp Refills Diclofenac Sodium 75 MG Oral Tablet Delaye*60 Tab*2 Sig: Take 1 Tablet by mouth 2 times a day with morning and evening meals. Authorizing Provider: HESHAM CASTILLO Ordering User: DANY MOORE * Telephone Encounter - Dany Moore [facility] - 02/28/2024 12:48 PM EST Provided 30 days supply with 2 refill(s). Per refill protocol patient should have CBC, CMP on file within past year. Reviewed AMP report, Care Gaps/Health Maintenance, medications list, and for any routine labs typically ordered for this patient. Lab orders placed. Please contact patient to advise of labs ordered for blood draw. Recommend patient to fast if able for labs. Patient may still have water and regular medications. Advise to obtain labs before requesting the next refill. Thanks, Dany Moore, JacintoD Clinical Pharmacist [facility] [phone] 02/28/2024, 12:48 PM * Telephone Encounter - Dany Moore RPh - 02/28/2024 12:45 PM EST Rheumatology: Refill Request(s) Per review of the refill parameters, Medication was given as a 3-month supply d/t Labs overdue- labs ordered and routed to have patient informed. Dany Moore RPh [facility] Clinical Pharmacist Rheumatology Department 02/28/2024,12:45 PM * Telephone Encounter - Mary Mejia LPN - 02/26/2024 10:47 AM ESTPending Prescriptions: Disp Refills Diclofenac Sodium 75 MG Oral Tablet Delaye*60 Tab*5 Sig: Take 1 Tablet by mouth 2 times a day with morning and evening meals. * Telephone Encounter - Mary Mejia LPN - 02/26/2024 10:46 AM EST Pending Prescriptions: Disp Refills Diclofenac Sodium 75 MG Oral Tablet Delay*60 Tab*5 Sig: Take 1 Tablet by mouth 2 times a day with morning and evening meals. Last Visit: 11/08/2023 (in office), Visit date not found (telemedicine) Next Visit: 04/27/2024 Patient Active Problem List Diagnosis Anxiety Major depressive disorder with single episode, in partial remission ([facility]) Irritable bowel syndrome with both constipation and diarrhea Primary generalized (osteo)arthritis Tobacco use disorder Mixed dyslipidemia Encounter for long-term (current) use of medications Non-radiographic axial spondyloarthritis of lumbar region ([facility]) Body mass index (BMI) of 40.0 to 44.9 in adult ([facility]) Seronegative arthritis documented in this encounter Plan of Treatment Upcoming Encounters Date Type Department Care Team (Late st Contact Info) Description 03/04/2024 2:00 PM EST Office Visit General Surgery, [facility] [address] [place] [address] Cristopher Reddy MD [address] [place] [address] 03/16/2024 12:15 PM EST Imaging Radiology [address] [place] [address] 03/20/2024 2:30 PM EST Telemedicine Gastroenterology [address] [place] [address] Teresa Yadav CRNP [address] [place] [address] 04/20/2024 10:30 AM EST Office Visit Gynecology/Obstetrics [address] [place] [address] Rhina Hazel CRNP [address] [place] [address] 04/27/2024 10:30 AM EST Office Visit Rheumatology [address] [place] [phone] Hesham Castillo CRNP [address] [place] [address] 10/15/2024 8:00 AM EDT Office Visit Family Medicine [address] [place] [phone] Zayda Hardy MD [address] [place] [address] [place] [address] Scheduled Procedures Name Priority Associated Diagnoses Date/Ti [...] Fecal Occult Blood Test 01/31/2020 Sigmoidoscopy 01/31/2020 COVID-19 Vaccine ( - season) 2023 08/24/2020, 08/03/2020 Influenza Vaccine (FLU shot) (#1) 2023 04/05/2014 Mammogram 02/26/2025 02/27/2024, 08/18, 05/25/2021, Additional history exists Diabetes Screening 02/08/2026 02/08/2023, 0 09/12/2021, 08/24/2021 [...] as of this encounter Visit Diagnoses Diagnosis Chronic pain syndrome Primary generalized (osteo)arthritis Generalized osteoarthrosis, involving multiple sites documented in this encounter Care Teams Decorating Equipment Setter Relationship Specialty Start Date End Date Zayda Hardy MD [address] [place] [address] [place] [phone] PCP - General Family Medicine 01/25/22 documented as of this encounter
--- OUTSIDE RECORDS SUMMARY | 2024-04-29 21:40 | External Medical Summary | Summary of Care ---
Author Name Unknown Organization [facility] Address [address] [facility] [place] [address] Phone [phone] Care Team Providers Care Sap Bw Architect Name Role Phone Zayda Hardy MD Primary Care Provide r Reason for Visit * Reason Comments NEW PATIENT Callculus of kati dder * Evaluate & Treat - Unlimited Visits (Within 30 days (routine)) - Authorized Specialty Diagnoses / Procedures Referred By Noemi brown Referred To Contact General Surgery Diagnoses Calculus of gallbladder without cholecystitis without obstruction Zayda Hardy MD [address] [place] [address] [place] [address] Phone: tel: fax: Referral ID Status Reason Start Date Expiration Date Visits Requested Visits Authorized [id number] Authorized Specialty Services Required [id number] Encounter Details Date Type Department Care Team (Late st Contact Info) Description 03/04/2024 2:00 PM EST Office Visit General Surgery, [facility] [address] [place] [address] Cristopher Reddy MD [address] [place] [address] Symptomatic cholelithiasis* Allergies Active Allergy Reactions Criticality Noted Date Comments Amoxicillin Low 07/20/2021 Mild rash- long time ago documented as of this encounter (statuses as of 03/04/2024) Medications NATURAL SUPPLEMENT Take by mouth daily . [facility] Active Pantoprazole Sodium 40 MG Oral Tablet Delayed Release (Protonix) Take 1 Tablet by mouth in the morning. 90 Tablet 3 07/26/19 24 Active Levocetirizine Dihydrochloride 5 MG Oral Tablet Take 1 Tablet by mouth in the morning. 90 Tablet 1 09/30/19 24 Active Cyclobenzaprine HCl 10 MG Oral Tablet (Flexeril)Indications :Inflammatory arthritis Take 1 Tablet by mouth 2 [...] Active Taltz 80 MG/ML Subcutaneous Solution Auto-injector (Ixekizumab)Indicatio ns:Non-radiographic axial spondyloarthritis of lumbar region (HCC) Inject 1 mL under the skin every 4 weeks. 1 mL 5 02/19/20 24 Active Diclofenac Sodium 75 MG Oral Tablet Delayed Release (Voltaren)Indications :Chronic pain syndrome,Primary generalized (osteo)arthritis Take 1 Tablet by mouth 2 times a day with morning and evening meals. 60 Tablet 2 02/28/20 24 Active Atorvastatin Calcium 20 MG Oral Tablet (Lipitor)Indications: Mixed dyslipidemia Take 1 Tablet by mouth in the morning. 90 Tablet 1 02/27/20 24 Active documented as of this encounter (statuses as of 03/04/2024) Active Problems Problem Noted Date Diagnosed Date [...] as of this encounter (statuses as of 03/04/2024) Resolved Problems Problem Noted Date Diagnosed Date Resolved Date Inflammatory arthritis 03/26/202207/23 documented as of this encounter (statuses as of 03/04/2024) Immunizations Name Administration Dates Next Due COVID-19 mRNA, LNP-s, No Pre serve, 2-Dose Series ([employer]) 08/24/2020,08/03/2020 Zoster Vaccine Recombinant (Shingrix) 06/01/2022 documented [...] PM EDT documented as of this encounter Last Filed Vital Signs Vital Sign Reading Time Taken Comments Blood Pressure 155/91 03/04/2024 1:45 PM EST Pulse 85 03/04/2024 1:45 PM EST Temperature - - Respiratory Rate - - Oxygen Saturation - - Inhaled Oxygen Concentration - - Weight 113.6 kg (250 lb 6.4 oz) 03/04/2024 1:45 PM EST Height - - Body Mass Index 44.36 06/24/2023 12:56 PM EDT documented in this encounter Progress Notes * Cristopher Reddy MD - 03/04/2024 1:59 PM EST [facility] [address] [facility] [place] [address] [facility] Chief Complaint: Chief Complaint Patient presents with NEW PATIENT Callculus of gallbladder History of Present Illness: Anna [place] is a 49 year old female who has been having right upper quadrant pain. Pain has been present for months. The pain does radiate to the patient's back. The patient does have nausea associated with it. The patient does not have any jaundice associated with it. The pain is made worse by fatty or fried foods. Characteristics of the pain are as follows: Location: RUQ with radiation to back Quality: sharp and stabbing Chronicity: Onset month(s) ago, stable since Aggravating factors: eating and fatty foods Alleviating factors: none Associated symptoms: anorexia and nausea Past Medical History Past Medical History: Diagnosis Date DDD (degenerative disc disease), cervical DDD (degenerative disc disease), lumbar Depression with anxiety Fatty liver disease, nonalcoholic Primary generalized (osteo)arthritis Past Surgical History Past Surgical History: Procedure Laterality Date COLONOSCOPY, DIAGNOSTIC (RECTUM) 02/22/2023 sigmoid diverticulosis/hemorrhoids/recall 10 years/COLONOSCOPY FLEXIBLE PROXIMAL DIAGNOSTIC performed by Katharine Arellano MD at ENDOSCOPY [facility] Medications: Current Outpatient Medications Medication Sig Dispense Refill NATURAL SUPPLEMENT Take by mouth daily . [facility] Pantoprazole Sodium 40 MG Oral Tablet Delayed Release (Protonix) Take 1 Tablet by mouth in the morning. 90 Tablet 3 Levocetirizine Dihydrochloride 5 MG Oral Tablet Take 1 Tablet by mouth in the morning. 90 Tablet 1 Cyclobenzaprine HCl 10 MG Oral Tablet (Flexeril) Take 1 Tablet by mouth 2 times a day as needed forMuscle spasms. 60 Tablet 1 Pregabalin 50 MG Oral Capsule (Lyrica) Take 50 mg in the morning by mouth and 100 mg in the eveningby mouth daily. 270 Capsule 1 buPROPion HCl ER (XL) 300 MG Oral Tablet Extended Release 24 Hour (Wellbutrin XL) Take 1 Tablet by mouth in the morning. 90 Tablet 1 Betamethasone Dipropionate 0.05 % External Cream (Diprosone) Apply topically to affected area 2 times a day. Apply to affected area Mupirocin 2 % External Kit Apply topically to affected area. predniSONE 5 MG Oral Tablet (Deltasone) Take 4 Tablets by mouth daily for 10 days, THEN 3 Tablets daily for 10 days, THEN 2 Tablets daily for 10 days, THEN 1 Tablet daily for 10 days. 100 Tablet 0 Taltz 80 MG/ML Subcutaneous Solution Auto-injector (Ixekizumab) Inject 1 mL under the skin every 4 weeks. 1 mL 5 Diclofenac Sodium 75 MG Oral Tablet Delayed Release (Voltaren) Take 1 Tablet by mouth 2 times a daywith morning and evening meals. 60 Tablet 2 Atorvastatin Calcium 20 MG Oral Tablet (Lipitor) Take 1 Tablet by mouth in the morning. 90 Tablet 1 No current facility-administered medications for this visit. Allergies: Allergies as of 03/04/2024 - Reviewed 03/04/2024 Allergen Reaction Noted Amoxil [amoxicillin] 07/20/2021 Family History Family History Problem Relation Name Age of Onset Celiac disease Mother Rheum arthritis Sister Celiac disease Grandmother (Maternal) Breast Cancer Cousin (Maternal) Social History Social History Socioeconomic History Marital status: Spouse name: Not on file Number of children: Not on file Years of education: Not on file Highest education level: Not on file Occupational History Not on file Tobacco Use Smoking status: Every Day Current packs/day: 0.50 Types: Cigarettes Smokeless tobacco: Never Tobacco comments: Also [employer] Vaping Use Vaping status: Every Day Substance and Sexual Activity Alcohol use: Yes Comment: Social Drug use: Not Currently Sexual activity: Not on file Other Topics Concern Not on file Social History Narrative Not on file Social Needs Financial Resource Strain: Low Risk (07/16/2023) Financial Resource Strain Do you have any trouble paying for your medications, or do you think you might in the future? (Adult - for ages 18 years and over): No Does your family have trouble paying for medicine? (Household - for ages 0-17 years): Not on file Food Insecurity: No Food Insecurity (07/16/2023) Food Insecurity Do you need food for this week? (Adult - for ages 18 years and over): No Are you able to get enough food for your family? (Household - for ages 0-17 years): Not on file Does your family need food this week? (Household - for ages 0-17 years): Not on file Do you always have enough food for your family? (Household - for ages 0-17 years): Not on file Transportation Needs: No Transportation Needs (07/16/2023) Transportation Needs Do you have trouble getting a ride to medical visits or work? (Adult - for ages 18 years and over):Never True Does your family have a hard time getting a ride to doctors visits? (Household - for ages 0-17 years): Not on file Has lack of transportation kept you from medical appointments, meetings, work, or from getting things needed for daily living? Check all that apply. (Adult - for ages 18 years and over): Not on file Do you (or your family) have trouble finding or paying for a ride (transportation)? (Household - for ages 0-17 years): Not on file Social Connections: Socially Integrated (07/16/2023) Social Connections How often do you feel lonely or isolated from those around you? (Adult - for ages 18 years and over): Sometimes Housing Stability: Low Risk (07/16/2023) Housing Stability Do you currently live in a long term or have no steady place to sleep at night? (Adult - for ages 18 years and over): No Do you think you are at risk of becoming homeless? (Adult - for ages 18 years and over): No Does your family worry about paying for your home or becoming homeless? (Household - for ages 0-17 years): Not on file Are you homeless or worried that you might be in the future? (Adult - for ages 18 years and over): Not on file Are you (or your family) homeless or worried that you might be in the future? (Household - for ages0-17 years): Not on file ROS: GEN: no weight loss, fever, fatigue HEENT: no changes in vision or hearing, no sinus problems, no sore throat, no hoarseness RESPIRATORY: no cough, wheezing, SOB or change in breathing CARDIOVASCULAR: no exertional chest pain, dyspnea, palpitations GI: see HPI , otherwise negative : no dysuria, hematuria, frequency MUSCULOSKELETAL: no change in joint pains, no new arthritis PSYCHIATRIC: no significant anxiety or depression, unchanged sleep pattern HEME: no bleeding tendency, no clotting tendency NEURO: no significant headache, no seizures , no tremors SKIN: no new rashes, no itching Physical Exam: Blood pressure 155/91, pulse 85, weight 113.6 kg (250 lb 6.4 oz). Constitutional: alert, healthy, well nourished Head: normocephalic, atraumatic Eyes: conjunctiva non-injected, sclera white Ears: pinna normal shape and color Nose: no purulent discharge Mouth: lips, mucosa, and tongue normal Neck: supple, no adenopathy Lungs: clear to auscultation, breath sounds are equal and symmetric Heart: regular rate & rhythm and no murmur, gallops or rubs Abdomen: soft, normal bowel sounds, no abnormal masses, no hernias, + tenderness (RUQ; mild) Back: normal curvature, normal ROM Extremities: no joint deformities, effusion, or inflammation, no edema, no skin discoloration Neuro: alert, gait normal, motor normal Skin: no obvious rashes or significant lesions Imaging: EXAM: US ABDOMEN LIMITED HISTORY: elevated lft TECHNIQUE: Real-time scanning performed right upper quadrant COMPARISON: None available FINDINGS: Gallbladder: Not abnormally distended. Several intraluminal calculi are noted. There is no current ultrasound evidence acute cholecystitis. There is no intrahepatic biliary dilatation. No extrahepatic biliary dilatation with common duct measuring approximally 4 mm. There is no gross choledocholithiasis. Liver: Size length: Right lobe approximate 17.1 cm; enlarged Visualized parenchyma relatively homogeneous but diffusely increased in echotexture; a nonspecific finding but often can reflect fatty infiltration among other etiologies including chronic inflammation, cirrhosis etc.. Currently, however, visualized surface contour is smooth without nodularity. There is additionally relative more isoechoic echotexture near gallbladder fossa again a nonspecific finding but often can reflect focal fatty sparing. No discrete focal lesion. Ascites: None demonstrated right upper quadrant Pancreas: Visualized portions of pancreatic parenchyma demonstrate no discrete focal lesion or pancreatic ductal dilatation. Right Kidney: Size length: 10.1 cm. No hydronephrosis or focal lesion. Cortex maintained in regard to thickness/echotexture. No demonstrable intrarenal calculus or perinephric abnormality. Right pleural effusion: None demonstrated. IMPRESSION IMPRESSION: Cholelithiasis. Hepatomegaly and probable diffuse hepatic parenchymal fatty infiltration I have reviewed the radiologic study and my intrepretation is gallstones Impression: Anna Almazan is a 49 year old female with cholelithiasis. I feel that the patient is a good candidate for laparascopic cholecystectomy. Treatment Plan: Laparascopic cholecystectomy without intraoperative cholangiogram. Risks discussed with the patient, including but not limited to: bleeding, infection, conversion to open, injury to the common bile duct, bile leak, retained common bile duct stone requiring ERCP, postoperative diarrhea and intolerance to foods postoperatively. Expected same day nature of surgery and recovery periodreviewed. All of the patient's questions have been answered. Will check CBC, CMP, EKG preoperatively. Will schedule at [facility] 04/13/[facility]23. Attending: Cristopher Reddy MD 03/14/2024 1:59 PM documented in this encounter Nursing Notes * Celestina Negro LPN - 03/04/2024 1:47 PM EST Chief Complaint Patient presents with NEW PATIENT Callculus of gallbladder Patient was having pain went to see and was sent in for surgical consult. documented in this encounter Plan of Treatment Upcoming Encounters Date Type Department Care Team (Late st Contact Info) Description 03/16/2024 12:15 PM EST Imaging Radiology [address] [place] [address] 03/20/2024 2:30 PM EST Telemedicine Gastroenterology [address] [place] [address] Teresa Yadav CRNP [address] [place] [address] 04/20/2024 10:30 AM EST Office Visit Gynecology/Obstetrics [address] [place] [address] Rhina Hazel CRNP [address] [place] [address] 04/27/2024 10:30 AM EST Office Visit Rheumatology [address] [place] [phone] Hesham Doll CRNP [address] [place] [address] 10/15/2024 8:00 AM EDT Office Visit Family Medicine [address] [place] [phone] Zayda Hardy MD [address] [place] [address] [place] [address] Scheduled Procedures Name Priority Associated Diagnoses Date/Ti me COLONOSCOPY FLEXIBLE PROXIMA L DIAGNOSTIC Recall Screening for colon cancer Scheduled Referrals Name Type Priority Associated Diagnoses Orde r Schedule SURGERY REFERRAL OP Referral Within 30 days (routine) Calculus of gallbladder without cholecystitis without obstruction Ordered: 02/27/2024 Health Maintenance Due Date Last Done Comments [...] Test 01/31/2020 Sigmoidoscopy 01/31/2020 COVID-19 Vaccine ( season) 2023 08/24/2020, 08/03/2020 Influenza Vaccine (FLU [...] as of this encounter Visit Diagnoses Diagnosis Symptomatic cholelithiasis- Primary Calculus of gallbladder without mention of cholecystitis or obstruction documented in this encounter Care Teams Sap Bw Architect Relationship Specialty Start Date End Date Zayda Hardy MD [address] [place] [address] [place] [address] PCP - General Family Medicine 01/25/22 documented as of this encounter
--- OUTSIDE RECORDS SUMMARY | 2024-04-29 21:40 | External Medical Summary | Summary of Care ---
Author Name Unknown Organization [facility] Address [address] [facility] [place] [address] Phone [phone] Care Team Providers Care Merchant Patroller Name Role Phone Zayda Hardy MD Primary Care Provide r Reason for Visit * Reason Comments NEW PATIENT Callculus of kati dder * Evaluate & Treat - Unlimited Visits (Within 30 days (routine)) - Authorized Specialty Diagnoses / Procedures Referred By Noemi brown Referred To Contact General Surgery Diagnoses Calculus of gallbladder without cholecystitis without obstruction Zayda Hardy MD [address] [place] [address] [place] [address] Phone: tel: fax: Referral ID Status Reason Start Date Expiration Date Visits Requested Visits Authorized [id number] Authorized Specialty Services Required [phone] Encounter Details Date Type Department Care Team (Late st Contact Info) Description 03/04/2024 2:00 PM EST Office Visit General Surgery, [facility] [address] [place] [address] Cristopher Reddy MD [address] [place] [address] Symptomatic cholelithiasis* Allergies Active Allergy Reactions Criticality Noted Date Comments Amoxicillin Low 07/20/2021 Mild rash- long time ago documented as of this encounter (statuses as of 03/04/2024) Medications NATURAL SUPPLEMENT Take by mouth daily . [facility] Active Pantoprazole Sodium 40 MG Oral [...] mRNA, LNP-s, No Pre serve, 2-Dose Series ([place]) 08/24/2020,08/03/2020 Zoster Vaccine Recombinant (Shingrix) 06/01/2022 documented [...] Reddy MD - 03/04/2024 1:59 PM EST [facility] [address] [facility] [place] [address] [facility] Chief Complaint: Chief Complaint Patient presents [...] performed by Katharine Arellano MD at ENDOSCOPY [facility] Medications: Current Outpatient Medications Medication Sig Dispense Refill NATURAL SUPPLEMENT Take by mouth daily . [facility] Pantoprazole Sodium 40 MG Oral Tablet [...] Stability Do you currently live in a intermediate or have no steady place to sleep [...] CBC, CMP, EKG preoperatively. Will schedule at [facility] on 04/13/2023. Attending: Cristopher Reddy MD 03/14/2024 [...] Description 03/16/2024 12:15 PM EST Imaging Radiology [address] [place] [address] 03/20/2024 2:30 PM EST Telemedicine Gastroenterology [address] [place] [address] Teresa Yadav CRNP [address] [place] [address] 04/20/2024 10:30 AM EST Office Visit Gynecology/Obstetrics [address] [place] [address] Rhina Hazel CRNP [address] [place] [address] 04/27/2024 10:30 AM EST Office Visit Rheumatology [address] [place] [phone] Hesham Doll CRNP [address] [facility] [place] [address] 10/15/2024 8:00 AM EDT Office Visit Family Medicine [address] [place] [phone] Zayda Hardy MD [address] [place] [address] [place] [address] Scheduled Procedures Name Priority Associated Diagnoses Date/Ti [...] obstruction documented in this encounter Care Teams Merchant Patroller Relationship Specialty Start Date End Date Zayda Hardy MD [address] [place] [address] [place] [address] PCP - General Family Medicine 01/25/22 documented as of this encounter
--- OUTSIDE RECORDS SUMMARY | 2024-04-29 21:40 | External Medical Summary | Summary of Care ---
Author Name Unknown Organization [facility] Address [address] [place] [facility] [place] [address] Phone [phone] Care Team Providers Care Pre School Manager Name Role Phone Zayda Hardy MD Primary Care Provide r Reason for Referral * Evaluate & Treat - Unlimited Visits (Within 30 days (routine)) - Authorized Specialty Diagnoses / Procedures Referred By Noemi brown Referred To Contact Obstetrics/Gynecology / Gynecology Obstetrics Diagnoses Encounter for screening mammogram for breast cancer Zayda Hardy MD [address] [place] [address] [place] [address] Phone: tel: fax: Referral ID Status Reason Start Date Expiration Date Visits Requested Visits Authorized [id number] Authorized Specialty Services Required [phone] Question Answer Referral Priority Within 30 days (routine) What condition is the patient being seen for? Annual Annuals should only be placed with a priority of 30 days I acknowledge Where should this appointment be scheduled? [facility] Comments BP 124/82 | Pulse 90 | Temp 96.2 F (35.7 C) | Wt 248 lb 12.8 oz (112.9 kg) * Evaluate & Treat - Unlimited Visits (Within 30 days (routine)) - Authorized Specialty Diagnoses / Procedures Referred By Noemi brown Referred To Contact General Surgery Diagnoses Calculus of gallbladder without cholecystitis without obstruction Zayda Hardy MD [address] [place] [address] [place] [address] Phone: tel: fax: Referral ID Status Reason Start Date Expiration Date Visits Requested Visits Authorized [id number] Authorized Specialty Services Required 4 [phone] Question Answer Referral Priority Within 30 days (routine) Where should this appointment be scheduled? [facility] What condition is the patient being seen for? General Surgery Conditions What condition is the patient being seen for? Gallbladder * Precert (Within 10 days (routine)) - Pending Review Specialty Diagnoses / Procedures Referred By Noemi brown Referred To Contact Radiology Diagnoses Chronic bilateral low back pain with right-sided sciatica Procedures MRI L SPINE WO CONTRAST Zayda Hardy MD [address] [place] [address] [place] [address] Phone: tel: fax: Referral ID Status Reason Start Date Expiration Date V isits Requested Visits Authorized [id number] Pending Review 02/27/[phone] Reason for Visit * Reason Comments Re-Check 6mo Encounter Details Date Type Department Care Team (Latest Contact Info) Description 02/27/2024 10:40 AM EST Office Visit Family Medicine [address] [place] [phone] Zayda Hardy MD [address] [place] [address] [place] [address] Encounter for screening mammogram for breast cancer*; Mixed dyslipidemia; Seronegative arthritis; Major depressive disorder with single episode, in partial remission (HCC); Anxiety; Elevated LFTs; Calculus of gallbladder without cholecystitis without obstruction; Chronic bilateral low back pain with right-sided sciatica; Screening for diabetes mellitus Allergies Active Allergy Reactions Criticality Noted Date Comments Amoxicillin Low 07/20/2021 Mild rash- long time ago documented as of this encounter (statuses as of 02/27/2024) Medications NATURAL SUPPLEMENT Take by mouth daily [...] Additional Information Patient not taking.Reported on 02/27/2024 Atorvastatin Calcium 20 MG Oral Tablet (Lipitor)Indications :Mixed dyslipidemia Take 1 Tablet by mouth in the morning. 90 Tablet 1 02/27/20 24 Active buPROPion HCl ER (SR) 150 MG Oral Tablet Extended Release 12 Hour (Wellbutrin SR) 1 daily in the evening 03/22/19 23 024 Disconti nued(Med ication List Clean Up) Atorvastatin Calcium 10 MG Oral Tablet (Lipitor)Indications :Mixed dyslipidemia Take 1 Tablet by mouth in the morning. 90 Tablet 10/29/19 24 024 Disconti suzanne(Ref ill) documented as of this encounter (statuses as of 02/27/2024) Active Problems Problem Noted Date Diagnosed Date [...] as of this encounter (statuses as of 02/27/2024) Resolved Problems Problem Noted Date Diagnosed Date Resolved Date Inflammatory arthritis 03/26/202207/23 documented as of this encounter (statuses as of 02/27/2024) Immunizations Name Administration Dates Next Due COVID-19 mRNA, LNP-s, No Pre serve, 2-Dose Series ([employer]) 08/24/2020,08/03/2020 Zoster Vaccine Recombinant (Shingrix) 06/01/2022 documented [...] 07/16/2023 Does the household have a re lar source of income? (Household - for ages [...] Sign Reading Time Taken Comments Blood Pressure 124/82 02/27/2024 10:38 AM EST Pulse 90 02/27/2024 10:38 AM EST Temperature 35.7 C (96.2 F) 02/27/2024 1 0:38 AM EST Respiratory Rate - - Oxygen Saturation 97% 02/27/2024 10: 38 AM EST Inhaled Oxygen Concentration - - Weight 112.9 kg (248 lb 12.8 oz) 2023 10:38 AM EST Height - - Body Mass Index 44.07 06/24/2023 12:56 PM EDT documented in this encounter Progress Notes * Zayda Hardy MD - 02/27/2024 10:58 AM EST Subjective: HPI: Anna Almazan is a 49 year old female with seronegative polyarthritis, IBS, GERD, Neuropathy, HLD, Anxiety/Depression seen for Pt is interested in getting MRI of L spine - Xray showed anterolisthesis - pt does get intermittent numbness on the R thigh Anxiety/Depression: - on wellbutromn ER 300mg daily and cymbalta - doing well Currently prednisone taper Pt is having RUQ pain with eating - pt did have cholelithiasis on recent abd us Pt would like refill of lipitor Patient Active Problem List Diagnosis Anxiety Major depressive disorder with single episode, in partial remission (HCC) Irritable bowel syndrome with both constipation and diarrhea Primary generalized (osteo)arthritis Tobacco use disorder Mixed dyslipidemia Encounter for long-term (current) use of medications 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 [facility] Pantoprazole Sodium 40 MG Oral Tablet Delayed Release (Protonix) Take 1 Tablet by mouth in the morning. 90 Tablet 3 Diclofenac Sodium 75 MG Oral Tablet Delayed Release (Voltaren) Take 1 Tablet by mouth 2 times a daywith morning and evening meals. 60 Tablet 5 Levocetirizine Dihydrochloride 5 MG Oral Tablet Take [...] daily for 10 days. 100 Tablet 0 Atorvastatin Calcium 20 MG Oral Tablet (Lipitor) Take 1 Tablet by mouth in the morning. 90 Tablet 1 Taltz 80 MG/ML Subcutaneous Solution Auto-injector (Ixekizumab) Inject 1 mL under the skin every 4 weeks. (Patient not taking: Reported on 02/27/2024) 1 mL 5 No current facility-administered medications for this visit. Past Medical History: Diagnosis Date DDD (degenerative disc disease), cervical DDD (degenerative disc disease), lumbar Depression with anxiety Fatty liver disease, nonalcoholic Primary generalized (osteo)arthritis Past Surgical History: Procedure Laterality Date COLONOSCOPY, DIAGNOSTIC (RECTUM) 02/22/2023 sigmoid diverticulosis/hemorrhoids/recall 10 years/COLONOSCOPY FLEXIBLE PROXIMAL DIAGNOSTIC performed by Katharine Arellano MD at ENDOSCOPY [facility] Review of patient's allergies indicates: Allergen Reactions Amoxil [Amoxicillin] Mild rash- long time ago Family History Problem Relation Name Age of Onset Celiac disease Mother Rheum arthritis Sister Celiac disease Grandmother (Maternal) Breast Cancer Cousin (Maternal) Social History Tobacco Use Smoking status: Every Day Current packs/day: 0.50 Types: Cigarettes Smokeless tobacco: Never Tobacco comments: Also VAPE [employer] Substance Use Topics Alcohol use: Yes Comment: Social Vaping/E-Cigarette Use Vaping/E-Cigarette Use Current Every Day User Vaping/E-Cigarette Substances Vaping/E-Cigarette Devices ROS: -Per HPI OBJECTIVE: BP 124/82 | Pulse 90 | Temp 96.2 F (35.7 C) | Wt 248 lb 12.8 oz (112.9 kg) | SpO2 97% | BMI 44.07 kg/m | BSA 2.24 m PHYSICAL EXAM: Vitals are reviewed General:. NAD, well developed HEENT:. Normal Conjunctiva, EOMI Cardiac:. Normal S1, S2, no murmur Lungs:. CTA, no wheezing or crackles Abd:.mild discomfort to palpation of the RUQ, soft, ND, Psych:. AAOx3, normal affect ASSESSMENT/PLAN: Encounter for screening mammogram for breast cancer (Primary) - MAMMOGRAM SCREENING MERARI BILATERAL - LANDCARE FACILITATOR REFERRAL OP Mixed dyslipidemia - COMPREHENSIVE METABOLIC PANEL - LIPID PANEL WITHOUT DIRECT LDL - Atorvastatin Calcium 20 MG Oral Tablet (Lipitor); Take 1 Tablet by mouth in the morning. Seronegative arthritis - follows up with rheum Major depressive disorder with single episode, in partial remission (HCC)/ Anxiety - stable Elevated LFTs - cmp today Calculus of gallbladder without cholecystitis without obstruction - SURGERY REFERRAL OP Chronic bilateral low back pain with right-sided sciatica - MRI L SPINE WO CONTRAST Screening for diabetes mellitus - HEMOGLOBIN A1C Follow Up: Return in 6 months (on 08/27/2024) for Schedule PAP. | For: Schedule PAP Zayda Hardy MD Family medicine, [address] [address] documented in this encounter Nursing Notes * Bella Morel CMA - 02/27/2024 10:36 AM EST She is here for a 6 mo recheck. She says she is doing ok. She wants to discuss her lower back. Radiologist recommended an MRI to eval for herniated discs. documented in this encounter Plan of Treatment Upcoming Encounters Date Type Department Care Team (Late st Contact Info) Description 02/27/2024 12:30 PM EST Imaging Radiology [address] [place] [address] 03/04/2024 2:00 PM EST Office Visit General Surgery, [facility] [address] [place] [address] [address] Cristopher Reddy MD [address] [place] [address] 03/16/2024 12:15 PM EST Imaging Radiology [address] [place] [address] 03/20/2024 2:30 PM EST Telemedicine Gastroenterology [address] [place] [address] Teresa Yadav CRNP [address] [place] [address] 04/20/2024 10:30 AM EST Office Visit Gynecology/Obstetrics [address] [place] [address] Rhina Hazel CRNP [address] [place] [address] 04/27/2024 10:30 AM EST Office Visit Rheumatology [address] [place] [phone] Hesham Doll [facility] [facility] [address] 10/15/2024 8:00 AM EDT Office Visit Family Medicine [address] [place] [phone] Zayda Hardy MD [address] [place] [address] [place] [address] Pending Results Name Type Priority Associated Diagnoses Date /Time MAMMOGRAM SCREENING MERARI BILATERAL Medical Imaging Routine Encounter for screening mammogram for breast cancer 02/27/2024 11:36 AM EST Scheduled Orders Name Type Priority Associated Diagnoses Orde r Schedule MRI L SPINE WO CONTRAST Medical Imaging Routine Chronic bilateral low back pain with right-sided sciatica Ordered: 02/27/2024 COMPREHENSIVE METABOLIC PANEL Lab Routine Mixed dyslipidemia Ordered: 02/27/2024 HEMOGLOBIN A1C Lab Routine Screening for diabetes mellitus Ordered: 02/27/2024 LIPID PANEL WITHOUT DIRECT LDL Lab Routine Mixed dyslipidemia Ordered: 02/27/2024 Scheduled Procedures Name Priority Associated Diagnoses Date/Ti me COLONOSCOPY FLEXIBLE PROXIMA L DIAGNOSTIC Recall Screening for colon cancer Scheduled Referrals Name Type Priority Associated Diagnoses Orde r Schedule SURGERY REFERRAL OP Referral Within 30 days (routine) Calculus of gallbladder without cholecystitis without obstruction Ordered: 02/27/2024 LANDCARE FACILITATOR REFERRAL OP Referral Within 30 day s (routine) Encounter for screening mammogram for breast cancer Ordered: 02/27/2024 Health Maintenance Due Date Last [...] 05/16, 09/08/2019, Additional history exists COVID-19 Vaccine (3 - season) 2023 08/24/2020, 08/03/2020 Influenza Vaccine [...] as of this encounter Visit Diagnoses Diagnosis Encounter for screening mammogram for breast cancer- Primary Mixed dyslipidemia Mixed hyperlipidemia Seronegative arthritis Other specified arthropathy, site unspecified Major depressive disorder with single episode, in partial remission (HCC) Anxiety Anxiety state, unspecified Elevated LFTs Other abnormal blood chemistry Calculus of gallbladder without cholecystitis without obstruction Calculus of gallbladder without mention of cholecystitis or obstruction Chronic bilateral low back pain with right-sided sciatica Screening for diabetes mellitus documented in this encounter Care Teams Pre School Manager Relationship Specialty Start Date End Date Zayda Hardy MD [address] [place] [address] [place] [id number] PCP - General Family Medicine 01/25/22 documented as of this encounter"
--- OUTSIDE RECORDS SUMMARY | 2024-04-29 21:40 | External Medical Summary | Summary of Care ---
Author Name Unknown Organization [facility] Address [address] [facility] [place] [address] Phone [phone] Care Team Providers Care Systems Lead Name Role Phone Zayda Hardy MD Primary Care Provide r Reason for Visit * Reason Comments NEW PATIENT Callculus of kati dder * Evaluate & Treat - Unlimited Visits (Within 30 days (routine)) - Authorized Specialty Diagnoses / Procedures Referred By Noemi brown Referred To Contact General Surgery Diagnoses Calculus of gallbladder without cholecystitis without obstruction Zayda Hardy MD [address] [place] [address] [place] [address] Phone: tel: fax: Referral ID Status Reason Start Date Expiration Date Visits Requested Visits Authorized [id number] Authorized Specialty Services Required [phone] Encounter Details Date Type Department Care Team (Late st Contact Info) Description 03/04/2024 2:00 PM EST Office Visit General Surgery, [facility] [address] [place] [address] [address] Cristopher Reddy MD [address] [place] [address] Symptomatic cholelithiasis* Allergies Active Allergy Reactions Criticality Noted Date Comments Amoxicillin Low 07/20/2021 Mild rash- long time ago documented as of this encounter (statuses as of 03/04/2024) Medications NATURAL SUPPLEMENT Take by mouth daily . [facility] Active Pantoprazole Sodium 40 MG Oral Tablet [...] mRNA, LNP-s, No Pre serve, 2-Dose Series ([employer]) 08/24/2020,08/03/2020 Zoster Vaccine Recombinant (Shingrix) 06/01/2022 documented [...] Reddy MD - 03/04/2024 1:59 PM EST [facility] 132 [facility] [place] [address] [facility] Chief Complaint: Chief Complaint Patient presents [...] performed by Kath[facility] MD at [facility] Medications: Current Outpatient Medications Medication Sig Dispense Refill NATURAL SUPPLEMENT Take by mouth daily . [facility] Pantoprazole Sodium 40 MG Oral Tablet [...] Stability Do you currently live in a custodial or have no steady place to sleep [...] CBC, CMP, EKG preoperatively. Will schedule at [facility] on 04/13/2023. Attending: Cristopher Reddy MD 03/14/2024 [...] Description 03/16/2024 12:15 PM EST Imaging Radiology [address] [place] [address] 03/20/2024 2:30 PM EST Telemedicine Gastroenterology [address] [place] [address] Teresa Yadav CRNP [address] [place] [address] 04/20/2024 10:30 AM EST Office Visit Gynecology/Obstetrics [address] [place] [address] Rhina Hazel CRNP [address] [place] [address] 04/27/2024 10:30 AM EST Office Visit Rheumatology [address] [place] [phone] Hesham Doll CRNP [address] [facility] [place] [address] 10/15/2024 8:00 AM EDT Office Visit Family Medicine [address] [place] [phone] Zayda Hardy MD [address] [place] [address] [place] [address] Scheduled Procedures Name Priority Associated Diagnoses Date/Ti [...] obstruction documented in this encounter Care Teams Systems Lead Relationship Specialty Start Date End Date Zayda Hardy MD [address] [place] [address] [place] [address] PCP - General Family Medicine 01/25/22 documented as of this encounter
--- OUTSIDE RECORDS SUMMARY | 2024-04-29 21:40 | External Medical Summary | Summary of Care ---
Author Name Unknown Organization [facility] Address [address] [facility] [place] [address] Phone [phone] Care Team Providers Care Trashman Name Role Phone Zayda Hardy MD Primary Care Provide r Reason for Visit * Reason Comments NEW PATIENT Callculus of kati dder * Evaluate & Treat - Unlimited Visits (Within 30 days (routine)) - Authorized Specialty Diagnoses / Procedures Referred By Noemi brown Referred To Contact General Surgery Diagnoses Calculus of gallbladder without cholecystitis without obstruction Zayda Hardy MD [address] [place] [address] [place] [address] Phone: tel: fax: Referral ID Status Reason Start Date Expiration Date Visits Requested Visits Authorized [id number] Authorized Specialty Services Required [phone] Encounter Details Date Type Department Care Team (Late st Contact Info) Description 03/04/2024 2:00 PM EST Office Visit General Surgery, [facility] [address] [place] [address] Cristopher Reddy MD [address] [place] [address] Symptomatic cholelithiasis* Allergies Active Allergy Reactions Criticality Noted Date Comments Amoxicillin Low 07/20/2021 Mild rash- long time ago documented as of this encounter (statuses as of 03/04/2024) Medications NATURAL SUPPLEMENT Take by mouth daily . [facility] Active Pantoprazole Sodium 40 MG [...] mRNA, LNP-s, No Pre serve, 2-Dose Series (FST21) 08/24/2020,08/03/2020 Zoster Vaccine Recombinant (Shingrix) 06/01/2022 documented [...] 1:59 PM EST [facility] [address] [facility] [place] [address] [facility] Chief Complaint: Chief Complaint Patient presents [...] performed by Katharine Arellano MD at [facility]OSCOPY [facility] Medications: Current Outpatient Medications Medication Sig Dispense Refill NATURAL SUPPLEMENT Take by mouth daily . [facility] Pantoprazole Sodium 40 MG Oral Tablet [...] Stability Do you currently live in a chcf or have no steady place to sleep [...] CBC, CMP, EKG preoperatively. Will schedule at [facility] on 04/13/2023. Attending: Cristopher Reddy MD [...] Description 03/16/2024 12:15 PM EST Imaging Radiology [address] [place] [address] 03/20/2024 2:30 PM EST Telemedicine Gastroenterology [address] [place] [address] Teresa Yadav CRNP [address] [place] [address] 04/20/2024 10:30 AM EST Office Visit Gynecology/Obstetrics [address] [place] [address] Rhina Hazel CRNP [address] [place] [address] 04/27/2024 10:30 AM EST Office Visit Rheumatology [address] [place] [phone] Hesham Doll CRNP [address] [facility] [place] [address] 10/15/2024 8:00 AM EDT Office Visit Family Medicine [address] [place] [phone] Zayda Hardy MD [address] [place] [address] [place] [address] Scheduled Procedures Name Priority Associated Diagnoses Date/Ti [...] obstruction documented in this encounter Care Teams Trashman Relationship Specialty Start Date End Date Zayda Hardy MD [address] [place] [address] [place] [address] PCP - General Family Medicine 01/25/22 documented as of this encounter
--- OUTSIDE RECORDS SUMMARY | 2024-04-29 21:40 | External Medical Summary | Summary of Care ---
Author Name Unknown Organization [facility] Address [address] [place] [address] Phone [phone] Care Team Providers Care Sterile Instrument Technician Name Role Phone Zayda Hardy MD Primary Care Provide r Reason for Visit * Reason Onset Date Comments Med Request 01/31/2024 Encounter Details Date Type Department Care Team (Late st Contact Info) Description 01/31/2024 Telephone Rheumatology, [place] [address] [place], [place] [id number] Mike Leos [facility] [address] [place] [address] Med Request Allergies Active Allergy Reactions Criticality Noted Date Comments Amoxicillin Low 07/20/2021 Mild rash- long time ago documented as of this encounter (statuses as of 02/03/2024) Medications NATURAL SUPPLEMENT Take by mouth daily . Medical [facility] Active buPROPion HCl ER (SR) 150 MG [...] mRNA, LNP-s, No Pre serve, 2-Dose Series (SpaceList) 08/24/2020,08/03/2020 Zoster Vaccine Recombinant (Shingrix) 06/01/2022 documented [...] No 07/16/2023 Does the household have a [facility] source of income? (Household - for ages [...] as of this encounter Miscellaneous Notes * Addendum Note - Kelsi Pagan RPh - 02/03/2024 10:55 AM ESTAddended by: KELSI SARAVIA on: 02/03/2024 10:55 AM Modules accepted: Orders * Telephone Encounter - Mahi Perez, VASILE - 02/03/2024 10:43 AM EST Zabrina calling from [facility] [phone], calling in regards to Taltz 80 MG/ML Subcutaneous Solution Auto-injector (Ixekizumab). It appeared this had been sent to [facility], however, they are no longer able to fill this medication. Please re send it to [place] to [facility] . Please advise Thank-you! Mahi * Telephone Encounter - Mike Leos RPh - 01/31/2024 9:10 AM EST Medication/Dose/Route/Interval: Ixekizumab 160 mg once, followed by 80 mg every 4 weeks- script sent Mike Leos PharmHi D., [facility] Clinical Pharmacist 01/31/2024,9:13 AM documented in this encounter Plan of Treatment Upcoming Encounters Date Type Department Care Team (Late st Contact Info) Description 02/27/2024 10:40 AM EST Office Visit Family Medicine [address] [place] [phone] Zayda Hardy MD [address] [place] [address] [place] [address] 03/20/2024 2:30 PM EST Telemedicine Gastroenterology [address] [place] [address] Teresa Yadav CRNP [address] [place] [address] 04/27/2024 10:30 AM EST Office Visit Rheumatology [address] [place] [phone] Hesham Doll CRNP [address] [facility] [place] [address] Scheduled Procedures Name Priority Associated Diagnoses Date/Ti [...] 05/16, 09/08/2019, Additional history exists COVID-19 Vaccine ( - 2023- season) 2023 08/24/2020, 08/03/2020 Influenza Vaccine (FLU [...] Primary documented in this encounter Care Teams Sterile Instrument Technician Relationship Specialty Start Date End Date Zayda Hardy MD [address] [place] [address] [place] [id number] PCP - General Family Medicine 01/25/22 documented as of this encounter
--- OUTSIDE RECORDS SUMMARY | 2024-04-29 21:40 | External Medical Summary | Summary of Care ---
Author Name Unknown Organization [facility] Address [address] [facility] [place] [address] Phone [phone] Care Team Providers Care Appliance Installer Name Role Phone Zayda Hardy MD Primary Care Provide r Reason for Visit * Reason Comments NEW PATIENT Callculus of kati dder * Evaluate & Treat - Unlimited Visits (Within 30 days (routine)) - Authorized Specialty Diagnoses / Procedures Referred By Noemi brown Referred To Contact General Surgery Diagnoses Calculus of gallbladder without cholecystitis without obstruction Zayda Hardy MD [address] [place] [address] [place] [address] Phone: tel: fax: Referral ID Status Reason Start Date Expiration Date Visits Requested Visits Authorized [id number] Authorized Specialty Services Required [phone] Encounter Details Date Type Department Care Team (Late st Contact Info) Description 03/04/2024 2:00 PM EST Office Visit General Surgery, [facility] [address] [place] [address] Cristopher Reddy MD [address] [place] [address] Symptomatic cholelithiasis* Allergies Active Allergy Reactions Criticality Noted Date Comments Amoxicillin Low 07/20/2021 Mild rash- long time ago documented as of this encounter (statuses as of 03/04/2024) Medications NATURAL SUPPLEMENT Take by mouth daily . Medical [facility] Active Pantoprazole Sodium 40 MG Oral [...] mRNA, LNP-s, No Pre serve, 2-Dose Series (Giveter) 08/24/2020,08/03/2020 Zoster Vaccine Recombinant (Shingrix) 06/01/2022 documented [...] documented in this encounter Progress Notes * Dayanara Short LPN - 03/04/2024 2:49 PM EST Patient identified by name and date of . Chief Complaint Patient presents with NEW PATIENT Callculus of gallbladder Patient scheduled at [facility] for lap donn with dr reddy . Date of Test: 04/13/2024 Medications reviewed. EKG not obtained, pt is 49 not needed Labs: not obtained, pt is 49, not needed Permit signed. Patient verbalizes understanding of pre- and post op instructions. Written instructions given for review at later date. Dayanara Short LPN 03/04/2024 * Maureen, Cristopher Ulloa MD - 03/04/2024 1:59 PM EST [facility] [address] [facility] [place] [address] [facility] Chief Complaint: Chief Complaint Patient presents with [...] performed by Katharine Arellano MD at [facility] Medications: Current Outpatient Medications Medication Sig [...] Stability Do you currently live in a halfway or have no steady place to sleep [...] CBC, CMP, EKG preoperatively. Will schedule at [facility] on 04/13/2023. Attending: Cristopher Reddy MD [...] Description 03/16/2024 12:15 PM EST Imaging Radiology [address] [place] [address] 03/16/2024 2:30 PM EST Imaging Radiology [facility] [address] [place] [address] 03/16/2024 3:00 PM EST Imaging Radiology [facility] 132 [facility] [place] [address] 03/20/2024 2:30 PM EST Telemedicine Gastroenterology [address] [place] [address] Teresa Yadav CRNP [address] [place] [address] 04/20/2024 10:30 AM EST Office Visit Gynecology/Obstetrics [address] [place] [address] Rhina Hazel CRNP [address] [place] [address] 04/27/2024 10:30 AM EST Office Visit Rheumatology [address] [place] [phone] Hesham Doll [facility] [facility] [address] 04/29/2024 1:15 PM EST Office Visit General Surgery, [facility] [address] [place] [address] Cristopher Reddy MD [address] [place] [address] 10/15/2024 8:00 AM EDT Office Visit Family Medicine [address] [place] [phone] Zayda Hardy MD [address] [place] [address] [place] [address] Scheduled Procedures Name Priority Associated Diagnoses Date/Ti [...] obstruction documented in this encounter Care Teams Appliance Installer Relationship Specialty Start Date End Date Zayda Hardy MD [address] [place] [address] [place] [address] PCP - General Family Medicine 01/25/22 documented as of this encounter
--- OUTSIDE RECORDS SUMMARY | 2024-04-29 21:40 | External Medical Summary | Summary of Care ---
Author Name Unknown Organization [facility] Address [address] [place] [facility] [place] [address] Phone [phone] Care Team Providers Care District Or District Office Director Name Role Phone Zayda Hardy MD Primary Care Provide r Encounter Details Date Type Department Care Team (Late st Contact Info) Description 03/30/2024 Orders Only Outcomes Research Department [address] [place], [place] [phone] Clary Denson CHRA [employer] Other*[id number] Allergies Active Allergy Reactions Criticality Noted Date Comments Amoxicillin Low 07/20/2021 Mild rash- long time ago documented as of this encounter (statuses as of 03/30/2024) Medications NATURAL SUPPLEMENT Take by mouth daily . Medical [facility] Active Pantoprazole Sodium 40 MG Oral Tablet Delayed Release (Protonix) Take 1 Tablet by mouth in the morning. 90 Tablet 3 07/26/19 24 Active Cyclobenzaprine HCl 10 MG Oral [...] Kit Apply topically to affected area. Active Taltz 80 MG/ML Subcutaneous Solution Auto-injector [...] morning. 90 Tablet 1 02/27/20 24 Active Levocetirizine Dihydrochloride 5 MG Oral Tablet Take 1 Tablet by mouth in the morning. 90 Tablet 03/26/19 25 Active documented as of this encounter (statuses as of 03/30/2024) Active Problems Problem Noted Date Diagnosed Date [...] as of this encounter (statuses as of 03/30/2024) Resolved Problems Problem Noted Date Diagnosed Date Resolved Date Inflammatory arthritis 03/26/202207/23 documented as of this encounter (statuses as of 03/30/2024) Immunizations Name Administration Dates Next Due COVID-19 mRNA, LNP-s, No Pre serve, 2-Dose Series (Tablefinder) 08/24/2020,08/03/2020 Zoster Vaccine Recombinant (Shingrix) 06/01/2022 documented [...] PM EDT documented as of this encounter Plan of Treatment Upcoming Encounters Date Type Department Care Team (Late st Contact Info) Description 04/13/2024 8:15 AM EST Office Visit [facility], Operating [facility], [facility] [address] [facility] [address] Cristopher Reddy MD [address] [place] [address] 04/29/2024 1:15 PM EST Office Visit General Surgery, [facility] [address] [place] [address] Cristopher Reddy MD [address] [place] [address] 05/08/2024 2:00 PM EST Telemedicine Gastroenterology [address] [place] [address] Teresa Yadav CRNP [address] [place] [address] 06/29/2024 3:00 PM EDT Office Visit Rheumatology [address] [place] [phone] Hesham Doll CRNP [address] [facility] [place] [address] 10/15/2024 8:00 AM EDT Office Visit Family Medicine [address] [place] [phone] Zayda Hardy MD [address] [place] [address] [place] [address] Scheduled Orders Name Type Priority Associated Diagnoses Orde r Schedule MYCODE SUBSEQUENT ADULT Lab Routine [employer] Other*[id number] Every 6 Months for 2 Occurrences starting 03/30/2024 until 04/19/2025 Scheduled Procedures Name Priority Associated Diagnoses Date/Ti me COLONOSCOPY FLEXIBLE PROXIMA L DIAGNOSTIC Recall Screening for colon cancer Health Maintenance Due Date Last Done Comments Depression Monitoring 1987 HIV Screening 1990 DTap/Tdap Vaccines (1 - Tdap) 1994 Hepatitis B Vaccine (1 of 3 - 19+ 3-dose series) 1994 Pneumococcal Vaccine: Pediatrics (0 to 5 Years) and At-Risk Patients (6 to 18 Years and 19+ Years) (1 of 2 - PCV) 1994 Pap Smear 01/31/1996 Cervical Cancer Screening 2005 HPV/Co-Test 2005 Cologuard 01/31/2020 Fecal Occult Blood Test 01/31/2020 Sigmoidoscopy 01/31/2020 COVID-19 Vaccine ( season) 2023 08/24/2020, 08/03/2020 Influenza Vaccine (FLU shot) (#1) 2023 04/05/2014 Mammogram 03/16/2025 03/16/2024, 02/15, 09/14/2022, Additional history exists Diabetes Screening 02/08/2026 02/08/2023, [...] as of this encounter Visit Diagnoses Diagnosis [employer] Other*[id number] documented in this encounter Care Teams District Or District Office Director Relationship Specialty Start Date End Date Zayda Hardy MD [address] [place] [address] [place] [address] PCP - General Family Medicine 01/25/22 documented as of this encounter
--- OUTSIDE RECORDS SUMMARY | 2024-04-29 21:40 | External Medical Summary | Summary of Care ---
Author Name Unknown Organization [facility] Address [address] [facility] [place] [address] Phone [phone] Care Team Providers Care Passenger Interline Clerk Name Role Phone Zayda Hardy MD Primary Care Provide r Reason for Visit * Reason Onset Date Comments Advice 01/24/2024 Lab orders Encounter Details Date Type Department Care Team (Late st Contact Info) Description 01/24/2024 Telephone Rheumatology [facility] [address] [address] Hesham Doll CRNP [address] [place] [address] Advice (Lab orders) Allergies Active Allergy Reactions Criticality Noted Date Comments Amoxicillin Low 07/20/2021 Mild rash- long time ago documented as of this encounter (statuses as of 04/25/2024) Medications NATURAL SUPPLEMENT Take by mouth daily . Medical [facility] Active Pantoprazole Sodium 40 MG Oral Tablet Delayed Release (Protonix) Take 1 Tablet by mouth in the morning. 90 Tablet 3 07/26/19 24 Active Cyclobenzaprine HCl 10 MG Oral Tablet (Flexeril)Indicatio ns:Inflammatory arthritis Take 1 Tablet by mouth 2 times a day as needed for Muscle spasms. 60 Tablet 1 09/30/19 24 Active buPROPion HCl ER (XL) 300 MG Oral Tablet Extended Release 24 Hour (Wellbutrin XL) Take 1 Tablet by mouth in the morning. 90 Tablet 1 12/03/19 24 Active Betamethasone Dipropionate 0.05 % External Cream (Diprosone) Apply topically to affected area 2 times a day. Apply to affected area Active Mupirocin 2 % External Kit Apply topically to affected area. Active buPROPion HCl ER (SR) 150 MG Oral Tablet Extended Release 12 Hour (Wellbutrin SR) 1 daily in the evening 03/22/19 23 024 Discontin ued(Medic ation List Clean Up) Diclofenac Sodium 75 MG Oral Tablet Delayed Release (Voltaren)Indicatio ns:Chronic pain syndrome,Primary generalized (osteo)arthritis Take 1 Tablet by mouth 2 times a day with morning and evening meals. 60 Tablet 5 08/16/19 24 024 Discontin ued(Refil l) Levocetirizine Dihydrochloride 5 MG Oral Tablet Take 1 Tablet by mouth in the morning. 90 Tablet 1 09/30/19 24 025 Discontin ued(Refil l) Atorvastatin Calcium 10 MG Oral Tablet (Lipitor)Indication s:Mixed dyslipidemia Take 1 Tablet by mouth in the morning. 90 Tablet 10/29/19 24 024 Discontin ued(Refil l) Pregabalin 50 MG Oral Capsule (Lyrica) Take 50 mg in the morning by mouth and 100 mg in the evening by mouth daily. 270 Capsule 1 11/08/19 24 025 Discontin ued(Refil l) predniSONE 5 MG Oral Tablet (Deltasone) Take 4 Tablets by mouth daily for 10 days, THEN 3 Tablets daily for 10 days, THEN 2 Tablets daily for 10 days, THEN 1 Tablet daily for 10 days. 100 Tablet 01/24/20 24 025 Discontin ued(Medic ation List Clean Up) documented as of this encounter (statuses as of 04/25/2024) Active Problems Problem Noted Date Diagnosed Date [...] as of this encounter (statuses as of 04/25/2024) Resolved Problems Problem Noted Date Diagnosed Date Resolved Date Inflammatory arthritis 03/26/202207/23 documented as of this encounter (statuses as of 04/25/2024) Immunizations Name Administration Dates Next Due COVID-19 mRNA, LNP-s, No Pre serve, 2-Dose Series (Maestro) 08/24/2020,08/03/2020 Zoster Vaccine Recombinant (Shingrix) 06/01/2022 documented [...] ages 0-17 years) Not on file 07/16/2023 Food Insecurity Answer Date Recorded Within the past 12 months, y ou worried that your food would run out before you got the money to buy more. Never true 07/16/19 24 Within the past 12 months, t he food you bought just didn't last and you didn't have money to get more. Never true 07/16/2023 Do you need food for this week? No 07/16/2023 Comments No Sex and Gender Information Value Date Recorded Sex Assigned at Female 12/28/2021 1:20 PM EDT Legal Sex Female 2:59 PM EDT Gender Identity Female 12/28/2021 1:20 PM EDT Sexual Orientation Straight 12/28/2021 1: 20 PM EDT documented as of this encounter Miscellaneous Notes * Telephone Encounter - Ashley Mejia LPN - 2024 9:44 AM EST Called the lab and advised that we did request, they will fax to PF * Telephone Encounter - Hesham Doll CRNP - 01/24/2024 4:18 PM EST Yes I requested labs to be sent over from 2023. * Telephone Encounter - Ashley Mejia LPN - 01/24/2024 3:16 PM EST Did you request? * Telephone Encounter - Vivian Bautista OSA - 01/24/2024 2:33 PM EST [place] - Patient Related Communication Reason for Call: Miguel ( Devonte soto ) Called in asking if provider wanted all labs from 2023 to be sent over. She wanted to verify because it seemed off on the call. Please call office and to let them know if labs are really wanted. If not Miguel , ask for Ally. IF they are needed they can be faxed over tomorrow morning. Please confirm if this was requested by office. VASILE Glover documented in this encounter Plan of Treatment Upcoming Encounters Date Type Department Care Team (Late st Contact Info) Description 04/29/2024 1:15 PM EST Office Visit General Surgery, [facility] [address] [place] [address] Cristopher Reddy MD [address] [place] [address] 05/08/2024 2:00 PM EST Telemedicine Gastroenterology [address] [place] [address] Teresa Yadav CRNP [address] [place] [address] 06/29/2024 3:00 PM EDT Office Visit Rheumatology [address] [place] [phone] Hesham Doll CRNP [address] [place] [address] [place] [address] 10/15/2024 8:00 AM EDT Office Visit Family Medicine [address] [place] [phone] Zayda Hardy MD [address] [place] [address] [place] [address] Scheduled Procedures Name Priority Associated Diagnoses Date/Ti [...] Not on filedocumented as of this encounter Care Teams Passenger Interline Clerk Relationship Specialty Start Date End Date Zayda Hardy MD [address] [place] [address] [place] [address] PCP - General Family Medicine 01/25/22 documented as of this encounter
--- OUTSIDE RECORDS SUMMARY | 2024-04-29 21:40 | External Medical Summary | Summary of Care ---
Author Name Unknown Organization [facility] Address [address] [facility] [place] [address] Phone [phone] Care Team Providers Care Director Of Research Name Role Phone Zayda Rockwell MD Primary Care Provide r Reason for Visit * Reason Onset Date Comments Medication Refill 03/25/2024 Encounter Details Date Type Department Care Team (Late st Contact Info) Description 03/25/2024 Refill Family Medicine [address] [place] [phone] Zayda Rockwell MD [address] [place] [address] [place], [place] [phone] Allergies Active Allergy Reactions Criticality Noted Date Comments Amoxicillin Low 07/20/2021 Mild rash- long time ago documented as of this encounter (statuses as of 03/31/2024) Medications NATURAL SUPPLEMENT Take by mouth daily . Medical [facility] Active Pantoprazole Sodium 40 MG Oral [...] the morning. 90 Tablet 03/26/19 25 Active Levocetirizine Dihydrochloride 5 MG Oral Tablet Take 1 Tablet by mouth in the morning. 90 Tablet 1 09/30/19 24 025 Discontin ued(Refil l) documented as of this encounter (statuses as of 03/31/2024) Active Problems Problem Noted Date Diagnosed Date [...] as of this encounter (statuses as of 03/31/2024) Resolved Problems Problem Noted Date Diagnosed Date Resolved Date Inflammatory arthritis 03/26/202207/23 documented as of this encounter (statuses as of 03/31/2024) Immunizations Name Administration Dates Next Due COVID-19 mRNA, LNP-s, No Pre serve, 2-Dose Series (Pfizer) 08/24/2020,08/03/2020 Zoster Vaccine Recombinant (Shingrix) 06/01/2022 documented [...] * Telephone Encounter - Tone Louise - 03/31/2024 7:57 PM EST Received message from [facility] regarding patient needing labs. Patient was notified. Successfully contacted patient and provided [facility] message. * Telephone Encounter - Sascha Castillo [facility] - 03/26/2024 12:44 PM EST Signed Prescriptions: Disp Refills Levocetirizine Dihydrochloride 5 MG Oral T*90 Tab*0 Sig: Take 1 Tablet by mouth in the morning. Authorizing Provider: ZAYDA ROCKWELL Ordering User: SASCHA CASTILLO * Telephone Encounter - Sascha Castillo [facility] - 03/26/2024 12:42 PM EST Provided 90 days supply with 0 refill(s). Per refill protocol patient should have routine on file within past year. Reviewed AMP report, Care Gaps/Health Maintenance, medications list, and for any routine labs typically ordered for this patient. Lab orders placed. Please contact patient to advise of labs ordered for blood draw. Recommend patient to fast if able for labs. Patient may still have water and regular medications. Advise to obtain labs before requesting the next refill. Thank you, Sascha Castillo, PharmD Clinical Pharmacist [facility] ([facility]) 03/26/24 12:43 PM [phone] documented in this encounter Plan of Treatment Upcoming Encounters Date Type Department Care Team (Late st Contact Info) Description 04/13/2024 8:15 AM EST Office Visit [facility], Operating Room, [facility] [address] [facility], [place] [address] Cristopher Reddy MD [address] [place] [address] 04/29/2024 1:15 PM EST Office Visit General Surgery, [facility] [address] [place] [address] Cristopher Reddy MD [address] [place] [address] 05/08/2024 2:00 PM EST Telemedicine Gastroenterology [address] [place] [address] Teresa Yadav CRNP [address] [place] [address] 06/29/2024 3:00 PM EDT Office Visit Rheumatology [address] [place] [phone] Hesham Castillo CRNP [address] [place], [place] [address] [address] 10/15/2024 8:00 AM EDT Office Visit Family Medicine [address] [place] [phone] Zayda Rockwell MD [address] [place] [address] [place] [address] Scheduled Procedures Name Priority Associated Diagnoses Date/Ti [...] filedocumented as of this encounter Care Teams Director Of Research Relationship Specialty Start Date End Date Zayda Rockwell MD [address] [place] [address] [place] [address] PCP - General Family Medicine 01/25/22 documented as of this encounter
--- OUTSIDE RECORDS SUMMARY | 2024-04-29 21:40 | External Medical Summary | Summary of Care ---
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 90 Tablet 03/26/19 25 Active Pregabalin 100 MG Oral Capsule (Lyrica) Take 1 Capsule by mouth in the morning and 1 Capsule before bedtime. 120 Capsule 3 04/24/19 25 Active Pregabalin 50 MG Oral Capsule (Lyrica) [...] 025 Discontin ued(Medic ation List Clean Up) Pregabalin 50 MG Oral Capsule (Lyrica) Take 2 Capsules by mouth in the morning and 2 Capsules before bedtime. Take 50 mg in the morning by mouth and 100 mg in the evening by mouth daily.. 270 Capsule 2 04/24/19 25 025 Discontin ued(Medic ation/Dos e Changed) documented as of this encounter (statuses as of 04/24/2024) Active Problems Problem Noted Date Diagnosed Date [...] as of this encounter (statuses as of 04/24/2024) Resolved Problems Problem Noted Date Diagnosed Date Resolved Date Inflammatory arthritis 03/26/202207/23 documented as of this encounter (statuses as of 04/24/2024) Immunizations Name Administration Dates Next Due COVID-19 mRNA, LNP-s, No Pre serve, 2-Dose Series ([employer]) 08/24/2020,08/03/2020 Zoster Vaccine Recombinant (Shingrix) 06/01/2022 documented as of this encounter Social History Tobacco Use Types Packs/Day Years Used Date Smoking Tobacco: Every Day Cigarettes Smokeless Tobacco: Never Tobacco Cessation:Ready to Q uit: Not Asked; Counseling Given: Not Answered Comments:Also [employer] Alcohol Use Standard Drinks/Week Comments Yes 0 [...] No 07/16/2023 Does the household have a [facility] source of income? (Household - for [...] money to buy more. Never true 07/16/19 Within the past 12 months, t he [...] Sign Reading Time Taken Comments Blood Pressure - - Pulse - - Temperature 36.4 C (97.5 F) 04/24/2024 2:[address] Respiratory Rate - - Oxygen Saturation - - Inhaled Oxygen Concentration - - Weight 113.9 kg (251 lb) 04/24/2024 2:33 PM EST Height - - Body Mass Index 44.46 06/24/2023 12:56 PM EDT documented in this encounter Progress Notes * Hesham Doll CRNP - 04/24/2024 2:27 PM EST Date of last clinic visit reviewed: 01/24/2024 Current medication therapy: Taltz, Lyrica Prior medication therapy: Plaquenil, Humira (rash), methotrexate, Cimzia Subjective: Patient seen today for further follow up evaluation of seronegative polyarthritis, non radiographicAS. She is accompanied by her today. Her main goal for this visit today was to reviewed disability paperwork. Since the last visit she started Taltz monthly since February so about 2 months. She continues on Lyrica 50 mg in the a.m. and 100 mg in the p.m. and diclofenac 75 mg twice a day. Reports her pain is 5/10 aching of the lower back, left knee, shoulders, neck, and ribs. Will have upcoming cataract surgery and has a consult in June. Reports that she will see a chiropractor every couple months and massage therapy with benefit. Reports hot baths with benefit. Notes she had a gallbladder surgery a couple weeks ago with benefit at [facility]. Musculoskeletal ROS: . Abnormal: joint pain and back pain . AM stiffness (hours): 2 . Pain scale (0-10): 5 . Fatigue scale (0-10): 7 . Job status: applying for disability Other ROS: . Constitutional: fatigue . Head headaches . Eyes: dryness . Ears, nose, throat, mouth: dry mouth . Cardiovascular: normal . Respiratory: normal and dyspnea on exertion . Gastrointestinal: normal . Genitourinary: normal . Skin: nail fungus of b/l 5th fingers, . Neurologic: numbness and tingling of right leg with standing All other ROS reviewed and negative. Pertinent positives listed in HPI. Social History: Social History Tobacco Use Smoking status: Every Day Current packs/day: 0.50 Types: Cigarettes Smokeless tobacco: Never Tobacco comments: Also [employer] Substance Use Topics Alcohol use: Yes Comment: Social Vaping/E-Cigarette Use Vaping/E-Cigarette Use Current Every Day User Vaping/E-Cigarette Substances Vaping/E-Cigarette Devices Current Outpatient Medications Medication Sig Dispense Refill NATURAL SUPPLEMENT Take by mouth daily . Medical marajuana Pantoprazole Sodium 40 MG Oral Tablet Delayed Release (Protonix) Take 1 Tablet by mouth in the morning. 90 Tablet 3 Cyclobenzaprine HCl 10 MG Oral Tablet (Flexeril) [...] External Kit Apply topically to affected area. Taltz 80 MG/ML Subcutaneous Solution Auto-injector (Ixekizumab) Inject 1 mL under the skin every 4 weeks. 1 mL 5 Diclofenac Sodium 75 MG Oral Tablet Delayed Release (Voltaren) Take 1 Tablet by mouth 2 times a daywith morning and evening meals. 60 Tablet 2 Atorvastatin Calcium 20 MG Oral Tablet (Lipitor) Take 1 Tablet by mouth in the morning. 90 Tablet 1 Levocetirizine Dihydrochloride 5 MG Oral Tablet Take 1 Tablet by mouth in the morning. 90 Tablet 0 No current facility-administered medications for this visit. Physical Exam: Temp 36.4 C (97.5 F) (Infrared ) | Wt 113.9 kg (251 lb) | BMI 44.46 kg/m | BSA 2.25 m General: alert, healthy, and no distress HENT: normocephalic, external ears normal, no mucosal erythema, no mucosal edema, moist mucosa, no oral ulcers Neck: supple, no adenopathy Lymph: no palpable lymphadenopathy Heart: regular rate & rhythm, no murmur, and no gallops Lungs: clear to auscultation , no rales, wheezes or rhonchi Extremities: no edema, no clubbing, no cyanosis Neuro Exam: alert & oriented x 3 with fluent speech, no focal motor/sensory deficits, gait normal Musculoskeletal Exam: A comprehensive musculoskeletal exam was performed for all joints of each upper and lower extremity and assessed for swelling, tenderness and range of motion. No SI joint tenderness. No joint swelling. Tenderness of bilateral wrists MCPs and PIP is. Synovitis of 2nd and 3rd MCP. Muscle strength 3/5 in upper and lower extremities. Project Program Manager strength 3/5 in bilateral hands. Decreased range of motion of bilateral shoulders. Crepitus of bilateral knees. 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 Almazan returns today for management of , inflammatory arthritis, OA. She continues to have joint and back pains since starting Taltz that has only been on it for 2 months and would like to giveit a couple of more months to get more benefit. We will increase Lyrica to 100 mg twice a day. Patient is due for labs. Reports she will get labs today. Patient advised to hold any immunosuppressant medication if they are sick or on antibiotics. Labs ordered for monitoring for medication toxicity. Patient advised to contact the clinic with questions. Plan: 1. Labs: CBC/CMP today then every 6 months 2. Continue Taltz 3. Increase Lyrica to 100 mg twice a day 4. Disability paperwork filled out and faxed 5. Follow up 2 months 6. Discussed conservative measures for joint pains 7. Contact clinic with any questions, concerns, worsening symptoms CC BERNICE Carlos Department of Rheumatology The patient was discussed with me. I agree with the findings and plan as documented by Hesham QUEEN in this note. Maco Ibrahim MD Rheumatology Department documented in this encounter Nursing Notes * Mary Mejia LPN - 04/24/2024 2:31 PM EST Chief Complaint Patient presents with Rheum Follow Up Follow up Pt stated that she is applying for social security and needs a form completed documented in this encounter Plan of Treatment Upcoming Encounters Date Type Department Care Team (Late st Contact Info) Description 04/29/2024 1:15 PM EST Office Visit General Surgery, [facility] [address] [place] [address] Cristopher Reddy MD [address] [place] [address] 05/08/2024 2:00 PM EST Telemedicine Gastroenterology [address] [place] [address] Teresa Yadav CRNP [address] [place] [address] 06/29/2024 3:00 PM EDT Office Visit Rheumatology [address] [place] [phone] Hesham Doll CRNP [address] [facility] [place] [address] 10/15/2024 8:00 AM EDT Office Visit Family Medicine [address] [place] [phone] Zayda Hardy MD [address] [place] [address] [place] [address] Scheduled Procedures Name Priority Associated Diagnoses Date/Ti [...] axial spondyloarthritis of lumbar region (HCC)- Primary Primary generalized (osteo)arthritis Generalized osteoarthrosis, involving multiple sites Chronic pain syndrome NSAID long-term use Encounter for long-term (current) use of non-steroidal anti-inflammatories Encounter for long-term (current) use of medications Encounter for long-term (current) use of other medications Inflammatory arthritis Unspecified inflammatory polyarthropathy documented in this encounter Care Teams Crowning Hammer Operator Relationship Specialty Start Date End Date Zayda Hardy MD [address] [place] [address] [place] [id number] PCP - General Family Medicine 01/25/22 documented as of this encounter"
--- OUTSIDE RECORDS SUMMARY | 2024-04-29 21:40 | External Medical Summary | Summary of Care ---
Author Name Unknown Organization [facility] Address [address] [facility] [place] [address] Phone [phone] Care Team Providers Care Lens Edger Name Role Phone Zayda Hardy MD Primary Care Provide r Reason for Visit * Reason Onset Date Comments Imaging Records Request 04/03/2024 Patient Access Records Request 04/03/2024 Encounter Details Date Type Department Care Team (Late st Contact Info) Description 04/03/2024 Telephone Radiology Film File [address], [place] [id number] Support, Imaging Radiology [address] [place], [place] [id number] Imaging Records Request; Patient Access Re... Allergies Active Allergy Reactions Criticality Noted Date Comments Amoxicillin Low 07/20/2021 Mild rash- long time ago documented as of this encounter (statuses as of 04/03/2024) Medications NATURAL SUPPLEMENT Take by mouth daily [...] as of this encounter (statuses as of 04/03/2024) Active Problems Problem Noted Date Diagnosed Date [...] as of this encounter (statuses as of 04/03/2024) Resolved Problems Problem Noted Date Diagnosed Date Resolved Date Inflammatory arthritis 03/26/202207/23 documented as of this encounter (statuses as of 04/03/2024) Immunizations Name Administration Dates Next Due COVID-19 mRNA, LNP-s, No Pre serve, 2-Dose Series ([employer]) 08/24/2020,08/03/2020 Zoster Vaccine Recombinant (Shingrix) 06/01/2022 documented [...] encounter Miscellaneous Notes * Telephone Encounter - Cheko Johns OSA - 04/03/2024 10:35 AM EST Patient signed patient right of access form to release 5.14.24 - 5.14-24 ALL image(s) to self via [employer] portal. [employer] message sent for clarification. documented in this encounter Plan of Treatment Upcoming Encounters Date Type Department Care Team (Late st Contact Info) Description 04/13/2024 8:15 AM EST Office Visit Non [facility], Operating Room, [place] [address] [place] [address] Cristopher Reddy MD [address] [place] [address] 04/29/2024 1:15 PM EST Office Visit General Surgery, [facility] [address] [place] [address] Cristopher Reddy MD [address] [place] [address] 05/08/2024 2:00 PM EST Telemedicine Gastroenterology [address] [place] [address] Teresa Yadav CRNP [address] [place] [address] 06/29/2024 3:00 PM EDT Office Visit Rheumatology [address] [place] [phone] Hesham Doll CRNP [facility] [facility] [place] [address] 10/15/2024 8:00 AM EDT Office Visit Family [address] [place] [phone] Zayda Hardy MD [address] [place] [address] [place] [address] Scheduled Procedures Name Priority Associated Diagnoses Date/Ti [...] filedocumented as of this encounter Care Teams Lens Edger Relationship Specialty Start Date End Date Zayda Hardy MD [address] [place] [address] [place] [address] PCP - General Family Medicine 01/25/22 documented as of this encounter
--- OUTSIDE RECORDS SUMMARY | 2024-04-29 21:41 | External Medical Summary | Summary of Care ---
Author Name Unknown Organization [facility] Address [address] [facility] [place] [address] Phone [phone] Care Team Providers Care Electric Stove Installer Name Role Phone Zayda Hardy MD Primary Care Provide r Reason for Visit * Reason Onset Date Comments Precert Approved 01/24/2024 harinder Encounter Details Date Type Department Care Team (Late st Contact Info) Description 01/24/2024 Telephone Rheumatology [place] [address] [place] [address] Hesham Castillo CRNP [address] [place] [address] Precert Approved (harinder) Allergies Active Allergy Reactions Criticality Noted Date Comments Amoxicillin Low 07/20/2021 Mild rash- long time ago documented as of this encounter (statuses as of 01/31/2024) Medications NATURAL SUPPLEMENT Take by mouth daily . Medical [facility] Active buPROPion HCl ER (SR) 150 MG Oral Tablet Extended Release 12 Hour (Wellbutrin SR) 1 daily in the evening 3 Active Pantoprazole Sodium 40 MG Oral Tablet Delayed Release (Protonix) Take 1 Tablet by mouth in the morning. 90 Tablet 3 4 Active Diclofenac Sodium 75 MG Oral Tablet Delayed Release (Voltaren)Indicatio ns:Chronic pain syndrome,Primary generalized (osteo)arthritis Take 1 Tablet by mouth 2 times a day with morning and evening meals. 60 Tablet 5 4 Active Levocetirizine Dihydrochloride 5 MG Oral Tablet Take 1 Tablet by mouth in the morning. 90 Tablet 1 4 Active Cyclobenzaprine HCl 10 MG Oral Tablet (Flexeril)Indicatio ns:Inflammatory arthritis Take 1 Tablet by mouth 2 times a day as needed for Muscle spasms. 60 Tablet 1 4 Active Atorvastatin Calcium 10 MG Oral Tablet (Lipitor)Indication s:Mixed dyslipidemia Take 1 Tablet by mouth in the morning. 90 Tablet 4 Active Pregabalin 50 MG Oral Capsule (Lyrica) Take 50 mg in the morning by mouth and 100 mg in the evening by mouth daily. 270 Capsule 1 4 Active buPROPion HCl ER (XL) 300 MG Oral Tablet Extended Release 24 Hour (Wellbutrin XL) Take 1 Tablet by mouth in the morning. 90 Tablet 1 4 Active Betamethasone Dipropionate 0.05 % External Cream [...] Tablet daily for 10 days. 100 Tablet 4 024 Active documented as of this encounter (statuses as of 01/31/2024) Active Problems Problem Noted Date Diagnosed Date [...] as of this encounter (statuses as of 01/31/2024) Resolved Problems Problem Noted Date Diagnosed Date Resolved Date Inflammatory arthritis 03/26/202207/23 documented as of this encounter (statuses as of 01/31/2024) Immunizations Name Administration Dates Next Due COVID-19 mRNA, LNP-s, No Pre serve, 2-Dose Series ([employer]) 08/24/2020,08/03/2020 Zoster Vaccine Recombinant (Shingrix) 06/01/2022 documented as of this encounter Social History Tobacco Use Types Packs/Day Years Used Date Smoking Tobacco: Every Day Cigarettes Smokeless Tobacco: Never Comments:Also [facility] Alcohol Use Standard Drinks/Week Comments Yes 0 [...] encounter Miscellaneous Notes * Telephone Encounter - Destini Soto CPhT - 01/31/2024 11:38 AM EST Patient Phone Numbers Sent [email or web address] message to patient to schedule [facility] appointment for Medication Education. Appointment scheduled as noted below. 02/10/2024 Thank you, Destini Soto CPhT Site Interpreter II [facility] 01/31/2024,11:38 AM * Telephone Encounter - Mike Leos RPh - 01/31/2024 9:15 AM EST Rheumatology Pharmacist Appointment Request Department & Provider: Rheumatology [facility] Egan [[id number]] - Pharmacist #1 Rheumatology [facility] [[id number]] Patient to be scheduled for visit type: New Pharm [[id number]], New Video Home Pharm [[id number]], or Telephonic Medicine Visit [[id number]] Length of visit: 30 minutes Reason for visit: Med Immanuel: Harinder Time Frame: within 2 weeks Request routed to [facility] Specialty Scheduling Pool ([id number]) Please route this encounter back to Rheum Pharmacist Refill Pool/Class [p [phone]] if unable to schedule patient after 3 attempts. Mike Leos Pharm. D., [facility] Clinical Pharmacist 01/31/2024,9:15 AM * Telephone Encounter - Brandy Olsen OSA - 2024 4:10 PM EST Control Operator Flow Coat - Patient Related Communication Reason for Call: Medication question/side effect (Physician): received call from pt in regards to script for Taltz. They received approval for medication. Asking to please e- prescribe to their pharmacy. Added to pts chart (verified address and phone number to pharmacy). VASILE Diaz * Telephone Encounter - Meredith Doshi RPh - 01/28/2024 3:31 PM EST Rheumatology Pre-Certification Request Medication/Disease State Information: Diagnosis: Nonradiographic axial spond M06.09] and M45.A6 Patient Age: [age] year old Medication/Dose/Route/Interval: Ixekizumab 160 mg once, followed by 80 mg every 4 weeks Site of Care: Self-Administered Previously Tried Therapy: Previously tried and resulted in inadequate response/therapeutic failure: Cimzia, Methotrexate PO, and Plaquenil, NSAID, Prednisone Reauthorization: No Required Screening Information: Vaccination(s): will coordinate care for pertinent vaccine TB Testing:Completed under scans, care everywhere or epic Hepatitis B Screenings: Completed under scans, care everywhere or epic Hepatitis C Screenings: Completed under scans, care everywhere or epic No active, severe, and/or uncontrolled infection Rheumatology Office Information: Catering Service Manager: HESHAM CASTILLO * Telephone Encounter - Yenifer Garcia [facility] - 01/28/2024 3:24 PM EST Images from the original note were not included. Rheumatology Pre-Certification Response Denied - see below Type Date User Summary Attachment Precert 01/28/2024 10:51 AM Cecelia Siegel OSA - - Note: Please see scanned fax from insurance under the Media Tab. Approved/Denied: denied Formulary alternatives not tried/failed Drug Name and Formulation: Cosentyx Sensoready Pen 150MG/ML auto-injectors How Prescribed(directions/sig): 150 mg weekly x 5 weeks, then 150 mg once monthly Qty and Day Supply: Did you receive insurance information from outside the chart? No, received insurance information within the chart Valid auth start date: N/A Valid auth end date: N/A Rx Insurance Info: [facility] [place] Reference #: Cecelia Siegel Medication Power Lineman Technician [facility] 01/28/24,10:50 AM * Telephone Encounter - Anju Stahl RPh - 01/28/2024 1:11 PM EST [facility] cancel cosentyx and proceed with original bimzelex. See depression screen below * Telephone Encounter - Hesham Castillo CRNP - 01/28/2024 12:57 PM EST Please re-auth for Bimzelex . Spoke with the patient reports she has never had thoughts of SI. Per last PCP note reviewed 07/24/2023 stating patient is doing well on Wellbutrin ER. There is no concerns. I am not sure what additional screenings are needed. Please advise. * Telephone Encounter - Anju Stahl RPh - 01/27/2024 9:22 AM EST Rheumatology Pre-Certification Request Medication/Disease State Information: Diagnosis: Nonradiographic axial spond M06.09] and M45.A6 Patient Age: [age] year old Medication/Dose/Route/Interval: Secukinumab SQ Intial/Maintenance: 150 mg weekly x 5 weeks, then 150 mg once monthly Site of Care: Self-Administered Thank you and have a wonderful day, Anju Stahl RPh * Telephone Encounter - Hesham Castillo CRNP - 01/27/2024 8:49 AM EST I am unsure. Please re-auth for Cosentyx as this is our original option. * Telephone Encounter - Anju Stahl RPh - 01/24/2024 1:49 PM EST Khang Dahl will require documentation of evaluation of mental health diagnosis. Please confirm this was evaluated given risk of depression with Bimzelex * Telephone Encounter - Hesham Castillo CRNP - 01/24/2024 12:40 PM EST Rheumatology Education, Pre-Certification, and/or Pharmacist Co-Management Request Medication Education: yes Pre-Certification: [facility]: Pre-cert for Prednisone, DMARDs & IV/IM/SC Osteoporosis Meds ([facility] rheumatology pharmacist pool p [phone]) Pharmacist Co-Management ([facility] ONLY; [place] select "no"): No Pharmacist Co-Management Medication/Disease State Information: Diagnosis: [M06.09] and M45.A6) Non-radiographic axial spondyloarthritis of lumbar region Medication: Bimekizumab 160 mg every 4 weeks no loading dose Failed or Intolerant to or Contraindicated: Cimzia, Humira, Methotrexate PO, and Plaquenil Comments Labs up to date Rheumatology Pharmacist Disease Modifying Antirheumatic Drug (DMARD) Co- Management (If Applicable) Minimum frequency patient should be seen in person for medication management: As appropriate per clinical condition and patient status By my signature, I understand that my patient will have medication [facility]) per established policies, procedures, and protocols. I also certify that this referral may serve as an initiation of service for the management of drug therapy in the above noted patient. [facility] providers will be responsible for scheduling patient visits, obtaining appropriate laboratory studies, and adjusting medication management therapy per patient's need, in addition to those roles spelled out in the clinic policy, procedures, and drug management protocols. I understand that the service provided by the [facility] is voluntary and have informed patient that they can refuse the service at their discretion. I am aware that the [facility] will provide me with a copy of the patient encounter via my My[employer] In-Basket. I authorize the [facility] to carryout these activities on my behalf. I consider this program to be a necessary part of the patient's medical care. BERNICE Singh documented in this encounter Plan of Treatment Upcoming Encounters Date Type Department Care Team (Late st Contact Info) Description 02/10/2024 9:30 AM EST Telemedicine Rheumatology, [place] [address] [place] [address] Agc5, Pharmacist Rheumatology [facility] [place] [address] 02/27/2024 10:40 AM EST Office Visit Family Medicine [address] [place] [phone] Zayda Hardy MD [address] [place] [address] [place] [address] 03/20/2024 2:30 PM EST Telemedicine Gastroenterology [address] [place] [address] Teresa Yadav CRNP [address] [place] [address] 04/27/2024 10:30 AM EST Office Visit Rheumatology [address] [place] [phone] Hesham Castillo CRNP [address] [employer] [place] [address] Scheduled Procedures Name Priority Associated Diagnoses Date/Ti [...] 09/08/2019, Additional history exists COVID-19 Vaccine ( season) 2023 08/24/2020, 08/03/2020 [...] filedocumented as of this encounter Care Teams Electric Stove Installer Relationship Specialty Start Date End Date Zayda Hardy MD [address] [place] [address] [place] [id number] PCP - General Family Medicine 01/25/22 documented as of this encounter
--- OUTSIDE RECORDS SUMMARY | 2024-04-29 21:41 | External Medical Summary | Summary of Care ---
Author Name Unknown Organization [facility] Address [address] [facility] [place] [address] Phone [phone] Care Team Providers Care Real Estate Executive Assistant Name Role Phone Zayda Hardy MD Primary Care Provide r Reason for Visit * Reason Onset Date Comments Precert Approved 01/24/2024 daniel Encounter Details Date Type Department Care Team (Late st Contact Info) Description 01/24/2024 Telephone Rheumatology [place] [address] [address] Hesham Castillo CRNP [address] [place] [address] Precert Approved (daniel) Allergies Active Allergy Reactions Criticality Noted Date Comments Amoxicillin Low 07/20/2021 Mild rash- long time ago documented as of this encounter (statuses as of 01/31/2024) Medications NATURAL SUPPLEMENT Take by mouth daily . Medical [facility] Active buPROPion HCl ER (SR) 150 [...] mRNA, LNP-s, No Pre serve, 2-Dose Series (Bridestory) 08/24/2020,08/03/2020 Zoster Vaccine Recombinant (Shingrix) 06/01/2022 documented as of this encounter Social History Tobacco Use Types Packs/Day Years Used Date Smoking Tobacco: Every Day Cigarettes Smokeless Tobacco: Never Comments:Also [facility] Alcohol Use Standard Drinks/Week Comments Yes [...] encounter Miscellaneous Notes * Telephone Encounter - Brandy Olsen OSA - 2024 4:10 PM EST [place] - Patient Related Communication Reason for Call: Medication question/side effect (Physician): received call from pt in regards to script for Taltz. They received approval for medication. Asking to please e- prescribe to their pharmacy. Added to pts chart (verified address and phone number to pharmacy). VASILE Diaz * Telephone Encounter - Meredith Doshi [facility] - 01/28/2024 3:31 PM EST Rheumatology Pre-Certification [...] severe, and/or uncontrolled infection Rheumatology Office Information: [employer] Captain: HESHAM CASTILLO * Telephone Encounter - Yenifer Garcia CPhT - 01/28/2024 3:24 PM EST Images from [...] auth end date: N/A Rx Insurance Info: [employer] [place] Reference #: Cecelia Siegel Medication [employer] [facility] 01/28/24,10:50 AM * Telephone Encounter - Anju Stahl RPh - 01/28/2024 1:11 PM EST [facility] cancel cosentyx and proceed with [...] advise. 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 Please re-auth for Cosentyx as this is our original option. * Telephone Encounter - Anju Stahl [facility] - 01/24/2024 1:49 PM EST Khang Dahl will require documentation of evaluation of mental health diagnosis. Please confirm this was evaluated given risk of depression with Bimzelex * Telephone Encounter - Hesham Castillo CRNP - 01/24/2024 12:40 PM EST Rheumatology Education, Pre-Certification, and/or Pharmacist Co-Management Request Medication Education: yes Pre-Certification: [facility]: Pre-cert for Prednisone, DMARDs & IV/IM/SC Osteoporosis Meds ([facility] rheumatology pharmacist pool p [phone]) Pharmacist Co-Management ([facility] ONLY; [place] select "no"): [...] will have medication [facility]) per established policies, procedures, and protocols. I also certify that this referral may serve as an initiation of service for the management of drug therapy in the above noted patient. [facility] providers will be responsible for scheduling patient visits, obtaining appropriate laboratory studies, and adjusting medication management therapy per patient's need, in addition to those roles spelled out in the clinic policy, procedures, and drug management protocols. I understand that the service provided by the [facility] is voluntary and have informed patient that they can refuse the service at their discretion. I am aware that the [facility] will provide me with a copy of the patient encounter via my [employer] In-Basket. I authorize the [facility] to carryout these activities on my behalf. I consider this program to be a necessary part of the patient's medical care. BERNICE Singh documented in this encounter Plan of Treatment Upcoming Encounters Date Type Department Care Team (Late st Contact Info) Description 02/27/2024 10:40 AM EST Office Visit [address] [phone] Zayda Hardy MD [address] [place] [address] [place] [address] 03/20/2024 2:30 PM EST Telemedicine Gastroenterology [address] [place] [address] Teresa Yadav CRNP [address] [place] [address] 04/27/2024 10:30 AM EST Office Visit Rheumatology [address] [place] [phone] Hesham Castillo CRNP [address] [employer] [place] [address] Scheduled Procedures Name Priority Associated Diagnoses Date/Ti [...] filedocumented as of this encounter Care Teams Real Estate Executive Assistant Relationship Specialty Start Date End Date Zayda Hardy MD [address] [place] [address] [place] [address] PCP - General Family Medicine 01/25/22 documented as of this encounter
--- OUTSIDE RECORDS SUMMARY | 2024-04-29 21:41 | External Medical Summary | Summary of Care ---
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 Medical [place] Active buPROPion HCl ER (SR) 150 MG [...] days. 100 Tablet 01/24/20 24 024 Active hydrOXYzine HCl 25 MG Oral Tablet 08/05/19 22 024 Discontin ued(Medic ation List Clean Up) Triamcinolone Acetonide 0.1 % External Cream (Aristocort) The hand twice daily for 1-2 weeks as needed 80 g 1 06/26/19 24 024 Discontin ued(Medic ation List Clean Up) Humira (2 Pen) 40 MG/0.8ML Subcutaneous Pen-injector Kit (Adalimumab) Inject 40 mg under the skin every 14 days. 1.6 mL 2 12/03/19 24 024 Discontin ued(Adver se reaction) documented as of this encounter (statuses as of 01/24/2024) Active Problems Problem Noted Date Diagnosed Date [...] as of this encounter (statuses as of 01/24/2024) Resolved Problems Problem Noted Date Diagnosed Date Resolved Date Inflammatory arthritis 03/26/202207/23 documented as of this encounter (statuses as of 01/24/2024) Immunizations Name Administration Dates Next Due COVID-19 mRNA, LNP-s, No Pre serve, 2-Dose Series ([employer]) 08/24/2020,08/03/2020 Zoster Vaccine Recombinant (Shingrix) 06/01/2022 documented [...] Pressure - - Pulse - - Temperature 36.2 C (97.1 F) 01/24/2024 8:02 AM ES T Respiratory Rate - - Oxygen Saturation - - Inhaled Oxygen Concentration - - Weight 109.8 kg (242 lb) 01/24/2024 8:02 AM EST Height - - Body Mass Index 42.87 06/24/2023 12:56 PM EDT documented in this encounter Patient Instructions * Patient Instructions* Hesham Doll CRNP - 01/24/2024 8:16 AM EST Clinical Pharmacy Service (Rheumatology): Medication Education EDUCATION Medication Information: IL-17 Inhibitors The following information was verbally provided to the patient and afterwards, a copy of the ACR medication guide was provided to supplement with more extensive information: Secukinumab (Brand Name: Cosentyx), is within a class of medications known as IL-17 Inhibitors thatblock further formation of inflammatory markers within your immune system. This medication is available in a subcutaneous injection. Side effects may include but are not limited to headache, dizziness, upset stomach, rash, infection, runny nose, sore throat, injection site reactions such as localized burning or itching, and the risk of developing malignancies or IBD. Because this medication can lower the ability of your immune system to fight infections, there is an increased risk of developinginfections, including TB or fungal infections. If any of the above-mentioned side effects occur, please inform your physician or rheumatology pharmacist so that we can take the next appropriate stepsin your care. Please make your physician aware if you are or planning to become , have kidney/liver damage, have current infection, any new cancer or malignancy, have a latex allergy, planning to get any vaccinations, or if you have new or changed medications on your medication list as these factors may impact your care plan. This medication may take up to 16-24 weeks to see an effect on your joints. For your safety, we will monitor you routinely through a series of blood work. For further inquiries, please refer to the medication information provided to you as well as your rheumatology care team. documented in this encounter Progress Notes * Hesham Doll CRNP - 01/24/2024 8:05 AM EST Date of last clinic visit reviewed: Current medication therapy: none Prior medication therapy: Plaquenil, methotrexate, Cimzia, Humira Date of last labs reviewed: September, Subjective: Patient seen today for further follow up evaluation of seronegative polyarthritis, non radiographicAS. Since the last visit she started on Humira every other week and only had 2 doses. The end of December she developed a rash, flu like sx but was also being treated for tonsillitis. She notes she d/c humira about 3 weeks ago. She reports she is stiff all day. Notes pain is the worst in her SI joint pains, ribs as well 08/25. Notes a generalized aching. She notes that Diclofenac 75 mg twice a day with some benefit. Patient declines pneumonia and flu shots at this point. Musculoskeletal ROS: . Abnormal: joint pain and back pain . AM stiffness (hours): all day stiffness . Pain scale (0-10): 6 . Fatigue scale (0-10): 6 . Job status: not working Other ROS: . Constitutional: fatigue . Head normal . Eyes: normal . Ears, nose, throat, mouth: normal . Cardiovascular: normal . Respiratory: normal . Gastrointestinal: heartburn and nausea . Genitourinary: normal . Skin: eczema . Neurologic: numbness and tinging hands and feet All other ROS reviewed and negative. Pertinent [...] SUPPLEMENT Take by mouth daily . Medical [facility] Pantoprazole Sodium 40 MG Oral Tablet Delayed [...] as needed forMuscle spasms. 60 Tablet 1 Atorvastatin Calcium 10 MG Oral Tablet (Lipitor) Take 1 Tablet by mouth in the morning. 90 Tablet 0 Pregabalin 50 MG Oral Capsule (Lyrica) Take [...] External Kit Apply topically to affected area. buPROPion HCl ER (SR) 150 MG Oral Tablet Extended Release 12 Hour (Wellbutrin SR) 1 daily in the evening Humira (2 Pen) 40 MG/0.8ML Subcutaneous Pen-injector Kit (Adalimumab) Inject 40 mg under the skin every 14 days. (Patient not taking: Reported on 01/24/2024) 1.6 mL 2 No current facility-administered medications for this visit. Physical Exam: Temp 36.2 C (97.1 F) (Infrared ) | Wt 109.8 kg (242 lb) | BMI 42.87 kg/m | BSA 2.21 m General: alert, healthy, and no distress HENT: normocephalic, external ears normal, no mucosal erythema, no mucosal edema, moist mucosa, no oral ulcers Eye Exam: PERRL, EOMI, conjunctiva are pink and non-injected, sclera clear Neck: supple, no adenopathy Lymph: no palpable lymphadenopathy Heart: regular rate & rhythm, no murmur, and no gallops Lungs: clear to auscultation , no rales, wheezes or rhonchi Extremities: no edema, no clubbing, no cyanosis Neuro Exam: alert & oriented x 3 with fluent speech, no focal motor/sensory deficits, gait normal Skin: skin color, texture, turgor are normal, healing eczema on palms of bilateral hands Musculoskeletal Exam: A comprehensive musculoskeletal exam was performed for all joints of each upper and lower extremity and assessed for swelling, tenderness and range of motion. No peripheral joint tenderness. Decreased range of motion of bilateral shoulders No SI joint tenderness. No joint swelling. 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 Almazan returns today for management of seronegative arthritis and non radiographic . She discontinued Humira few weeks ago due to side effects. She has ongoing symptoms of . Discussed Cosentyx and Taltz. We will start authorization for Cosentyx at this time. Advised patient to get updated labs 1 month after starting biologic treatment. Ordered and printed labs and given to the patient at this time. Follow up 3 months. We will start prednisone taper 20 mg x 10 days, 15 mg x 10 days, 10 mg x 10 days, 5 mg x 10 days. We will patient sign release of records to review labs from September. Advised patient to contact clinic with any questions, concerns, worsening symptoms. Patient agreeable to this plan and verbalized understanding. Patient advised to hold any immunosuppressant medication if they are sick or on antibiotics. Labs ordered for monitoring for medication toxicity. Plan: 1. Labs: CBC/CMP 1 month after starting biologic 2. Will start authorization for Cosentyx 3. Follow up 3 months 4. Start prednisone taper 5. Contact clinic with any questions, concerns, worsening symptoms 6. Discussed the above in detail with the patient. All questions answered. CC BERNICE Carlos Department of Rheumatology The patient was discussed with me. I agree with the findings and plan as documented by Hesham QUEEN in this note. Maco Ibrahim MD Rheumatology Department documented in this encounter Nursing Notes * Mary Mejia LPN - 01/24/2024 7:59 AM EST Chief Complaint Patient presents with Rheum Follow Up Follow up documented in this encounter Plan of Treatment Upcoming Encounters Date Type Department Care Team (Late st Contact Info) Description 02/27/2024 10:40 AM EST Office Visit Family Medicine [address] [place] [phone] Zayda Hardy MD [address] [place] [address] [place] [address] 03/20/2024 2:30 PM EST Telemedicine Gastroenterology [address] [place] [address] Teresa Yadav CRNP [address] [place] [address] 04/27/2024 10:30 AM EST Office Visit Rheumatology [address] [place] [phone] Hesham Doll CRNP [address] [facility] [address] Scheduled Orders Name Type Priority Associated Diagnoses Orde r Schedule CBC WITH WBC DIFFERENTIAL Lab Routine Encounter for therapeutic drug monitoring Ordered: 01/24/2024 COMPREHENSIVE METABOLIC PANEL Lab Routine Encounter for therapeutic drug monitoring Ordered: 01/24/2024 Scheduled Procedures Name Priority Associated Diagnoses Date/Ti [...] Test 01/31/2020 Sigmoidoscopy 01/31/2020 Mammogram 09/15/2023 09/14/2022, 03, 09/08/2019, Additional history exists COVID-19 Vaccine ( [...] axial spondyloarthritis of lumbar region (HCC)- Primary Encounter for therapeutic drug monitoring Primary generalized (osteo)arthritis Generalized osteoarthrosis, involving multiple sites NSAID long-term use Encounter for long-term (current) use of non-steroidal anti-inflammatories Chronic pain syndrome Inflammatory arthritis Unspecified inflammatory polyarthropathy documented in this encounter Care Teams Blasting Gang Miner Relationship Specialty Start Date End Date Zayda Hardy MD [address] [place] [address] [place] [address] PCP - General Family Medicine 01/25/22 documented as of this encounter"
--- OUTSIDE RECORDS SUMMARY | 2024-04-29 21:41 | External Medical Summary | Summary of Care ---
Author Name Unknown Organization [facility] Address [address] [place] [address] Phone [phone] Care Team Providers Care Excellence Manager Name Role Phone Zayda Hardy MD Primary Care Provide r Reason for Visit * Reason Onset Date Comments Med Request 01/31/2024 Encounter Details Date Type Department Care Team (Late st Contact Info) Description 01/31/2024 Telephone Rheumatology, [place] [address] [place], [place] [id number] Mike Leos [facility] [address] [place] [address] Med Request Allergies Active Allergy Reactions Criticality Noted Date Comments Amoxicillin Low 07/20/2021 Mild rash- long time ago documented as of this encounter (statuses as of 01/31/2024) Medications NATURAL SUPPLEMENT Take by mouth daily . Medical [facility] Active buPROPion HCl ER (SR) 150 [...] mg every 4 weeeks 2 mL 01/31/20 Active Taltz 80 MG/ML Subcutaneous Solution Auto-injector (Ixekizumab) Inject 1 mL under the skin every 4 weeks. 80 mg every 4 weeks 1 mL 2 01/31/20 24 Active documented as of this encounter [...] encounter Miscellaneous Notes * Telephone Encounter - Mike Leos RPh - 01/31/2024 9:10 AM EST Medication/Dose/Route/Interval: Ixekizumab 160 mg once, followed by 80 mg every 4 weeks- script sent Mike Leos, Pharm. D., [facility] Clinical Pharmacist 01/31/2024,9:13 AM documented in this encounter Plan of Treatment Upcoming Encounters Date Type Department Care Team (Late st Contact Info) Description 02/27/2024 10:40 AM EST Office Visit Family Medicine [address] [place] [phone] Zayda Hardy MD [address] [place] [address] [place] [address] 03/20/2024 2:30 PM EST Telemedicine Gastroenterology [address] [place] [address] Teresa Yadav CRNP [address] [facility] [place] [address] 04/27/2024 10:30 AM EST Office Visit Rheumatology [address] [place] [phone] Hesham Doll CRNP [address] [place] [address] [place] [address] Scheduled Procedures Name Priority Associated Diagnoses Date/Ti [...] Additional history exists COVID-19 Vaccine ( - season) 2023 08/24/2020, [...] Primary documented in this encounter Care Teams Excellence Manager Relationship Specialty Start Date End Date Zayda Hardy MD [address] [place] [address] [place] [phone] PCP - General Family Medicine 01/25/22 documented as of this encounter
--- OUTSIDE RECORDS SUMMARY | 2024-04-29 21:41 | External Medical Summary | Summary of Care ---
Author Name Unknown Organization [facility] Address [address] [facility] [place] [address] Phone [phone] Care Team Providers Care Handbag Designer Name Role Phone Zayda Hardy MD Primary Care Provide r Reason for Visit * Reason Onset Date Comments Precert Approved 01/24/2024 daniel Encounter Details Date Type Department Care Team (Late st Contact Info) Description 01/24/2024 Telephone Rheumatology [place] [address] [address] Hesham Castillo CRNP [address] [place] [address] Precert Approved (daniel) Allergies Active Allergy Reactions Criticality Noted Date Comments Amoxicillin Low 07/20/2021 Mild rash- long time ago documented as of this encounter (statuses as of 2024) Medications NATURAL SUPPLEMENT Take by mouth daily . Medical [facility] Active buPROPion HCl ER (SR) 150 MG [...] as of this encounter (statuses as of 2024) Active Problems Problem Noted Date Diagnosed Date [...] as of this encounter (statuses as of 2024) Resolved Problems Problem Noted Date Diagnosed Date Resolved Date Inflammatory arthritis 03/26/202207/23 documented as of this encounter (statuses as of 2024) Immunizations Name Administration Dates Next Due COVID-19 mRNA, LNP-s, No Pre serve, 2-Dose Series (ftopia) 08/24/2020,08/03/2020 Zoster Vaccine Recombinant (Shingrix) 06/01/2022 documented as of this encounter Social History Tobacco Use Types Packs/Day Years Used Date Smoking Tobacco: Every Day Cigarettes Smokeless Tobacco: Never Comments:Also [facility] Alcohol Use Standard Drinks/Week Comments Yes 0 [...] Olsen OSA - 2024 4:10 PM EST Parker - Patient Related Communication Reason for Call: Medication question/side effect (Physician): received call from pt in regards to script for Taltz. They received approval for medication. Asking to please e- prescribe to their pharmacy. Added to pts chart (verified address and phone number to pharmacy). VASILE Diaz * Telephone Encounter - Meredith Doshi [facility] - 01/28/2024 3:31 PM EST Rheumatology Pre-Certification [...] severe, and/or uncontrolled infection Rheumatology Office Information: Career Orientation Teacher: HESHAM CASTILLO * Telephone Encounter - Yenifer [...] HMK [place] Reference #: Cecelia Siegel Medication Roller Mill Operator [facility] 01/28/24,10:50 AM * Telephone Encounter - Anju Stahl RPh - 01/28/2024 1:11 PM EST [facility] cancel cosentyx and proceed with original bimzelex. [...] advise. * Telephone Encounter - Anju Stahl [facility] - 01/27/2024 9:22 AM EST Rheumatology Pre-Certification [...] option. * Telephone Encounter - Anju Stahl [facility] - 01/24/2024 1:49 PM EST Khang Dahl will require documentation of evaluation of mental health diagnosis. Please confirm this was evaluated given risk of depression with Bimzelex * Telephone Encounter - Hesham Castillo CRNP - 01/24/2024 12:40 PM EST Rheumatology Education, Pre-Certification, and/or Pharmacist Co-Management Request Medication Education: yes Pre-Certification: [facility]: Pre-cert for Prednisone, DMARDs & IV/IM/SC Osteoporosis Meds ([facility] rheumatology pharmacist pool p [phone]) Pharmacist Co-Management ([facility] ONLY; West select "no"): [...] will have medication [facility]) per established policies, procedures, and protocols. I also certify that this referral may serve as an initiation of service for the management of drug therapy in the above noted patient. [facility] providers will be responsible for scheduling patient visits, obtaining appropriate laboratory studies, and adjusting medication management therapy per patient's need, in addition to those roles spelled out in the clinic policy, procedures, and drug management protocols. I understand that the service provided by the [facility] is voluntary and have informed patient that they can refuse the service at their discretion. I am aware that the [facility] will provide me with a copy of the patient encounter via my [employer] In-Basket. I authorize the [facility] to carryout these activities on my behalf. I consider this program to be a necessary part of the patient's medical care. BERNICE Singh documented in this encounter Plan of Treatment Upcoming Encounters Date Type Department Care Team (Late st Contact Info) Description 02/27/2024 10:40 AM EST Office Visit [address] [phone] Zayda Hardy MD [address] [place] [address] [place] [address] 03/20/2024 2:30 PM EST Telemedicine Gastroenterology [address] [place] [address] Teresa Yadav CRNP [address] [place] [address] 04/27/2024 10:30 AM EST Office Visit Rheumatology [address] [place] [phone] Hesham Castillo CRNP [address] [place] [address] Scheduled Procedures Name Priority Associated Diagnoses Date/Ti [...] filedocumented as of this encounter Care Teams Handbag Designer Relationship Specialty Start Date End Date Zayda Hardy MD [address] [place] [address] [place] [address] PCP - General Family Medicine 01/25/22 documented as of this encounter
--- OUTSIDE RECORDS SUMMARY | 2024-04-29 21:41 | External Medical Summary | Summary of Care ---
Author Name Unknown Organization [facility] Address [address] [facility] [place] [address] Phone [phone] Care Team Providers Care Breakfast And Room Attendant Name Role Phone Zayda Hardy MD Primary Care Provide r Reason for Visit * Reason Onset Date Comments Precert Approved 01/24/2024 daniel Encounter Details Date Type Department Care Team (Late st Contact Info) Description 01/24/2024 Telephone Rheumatology [place] [address] [place] [address] Hesham Castillo CRNP [address] [place] [address] Precert Approved (daniel) Allergies Active Allergy Reactions Criticality Noted Date Comments Amoxicillin Low 07/20/2021 Mild rash- long time ago documented as of this encounter (statuses as of 01/29/2024) Medications NATURAL SUPPLEMENT Take by mouth daily . Medical [facility] Active buPROPion HCl ER (SR) 150 MG [...] as of this encounter (statuses as of 01/29/2024) Active Problems Problem Noted Date Diagnosed Date [...] as of this encounter (statuses as of 01/29/2024) Resolved Problems Problem Noted Date Diagnosed Date Resolved Date Inflammatory arthritis 03/26/202207/23 documented as of this encounter (statuses as of 01/29/2024) Immunizations Name Administration Dates Next Due COVID-19 mRNA, LNP-s, No Pre serve, 2-Dose Series (Talk[employer]k) 08/24/2020,08/03/2020 Zoster Vaccine Recombinant (Shingrix) 06/01/2022 documented as of this encounter Social History Tobacco Use Types Packs/Day Years Used Date Smoking Tobacco: Every Day Cigarettes Smokeless Tobacco: Never Comments:Also [facility] [facility] Alcohol Use Standard Drinks/Week Comments Yes 0 [...] encounter Miscellaneous Notes * Telephone Encounter - Meredith Doshi RPh [...] severe, and/or uncontrolled infection Rheumatology Office Information: Construction Person: HESHAM CASTILLO * Telephone Encounter - Yenifer [...] 5 weeks, then 150 mg once monthly Qt and Day Supply: Did you receive insurance information from outside the chart? No, received insurance information within the chart Valid auth start date: N/A Valid auth end date: N/A Rx Insurance Info: [employer] [place] Reference #: Cecelia Siegel Medication Air Surveillance Operator [facility] 01/28/24,10:50 AM * Telephone Encounter - Anju Stahl RPh - 01/28/2024 1:11 PM EST [facility] cancel cosentyx and proceed with original bimzelex. [...] for Prednisone, DMARDs & IV/IM/SC Osteoporosis Meds ([facility] rheumatology pharmacist pool p [phone]) Pharmacist Co-Management ([facility] ONLY; West select "no"): [...] [facility] per established policies, procedures, and protocols. I also certify that this referral may serve as an initiation of service for the management of drug therapy in the above noted patient. [facility] providers will be responsible for scheduling patient visits, obtaining appropriate laboratory studies, and adjusting medication management therapy per patient's need, in addition to those roles spelled out in the clinic policy, procedures, and drug management protocols. I understand that the service provided by the [facility] is voluntary and have informed patient that they can refuse the service at their discretion. I am aware that the [facility] will provide me with a copy of the patient encounter via my [employer] In-Basket. I authorize the [facility] to carryout these activities on my behalf. I consider this program to be a necessary part of the patient's medical care. BERNICE Singh documented in this encounter Plan of Treatment Upcoming Encounters Date Type Department Care Team (Late st Contact Info) Description 02/27/2024 10:40 AM EST Office Visit Family Medicine [address] [place] [phone] Zayda Hardy MD [address] [place] [address] [place] [address] 03/20/2024 2:30 PM EST Telemedicine Gastroenterology [address] [place] [address] Teresa Yadav CRNP [address] [place] [address] 04/27/2024 10:30 AM EST Office Visit Rheumatology [address] [place] [phone] Hesham Castillo CRNP [facility] [place] [address] Scheduled Procedures Name Priority Associated Diagnoses Date/Ti [...] 03, 09/08/2019, Additional history exists COVID-19 Vaccine (3 - 2023- season) 2023 08/24/2020, 08/03/2020 Influenza [...] filedocumented as of this encounter Care Teams Breakfast And Room Attendant Relationship Specialty Start Date End Date Zayda Hardy MD [address] [place] [address] [place] [address] PCP - General Family Medicine 01/25/22 documented as of this encounter
--- OUTSIDE RECORDS SUMMARY | 2024-04-29 21:41 | External Medical Summary | Summary of Care ---
Author Name Unknown Organization [facility] Address [address] [place] [address] Phone [phone] Care Team Providers Care Organ Pipe Maker Metal Name Role Phone Zayda Hardy MD Primary Care Provide r Reason for Visit * Reason Onset Date Comments Other 01/07/2024 Prescription kat ification Encounter Details Date Type Department Care Team (Late st Contact Info) Description 01/07/2024 Telephone Virtual Urgent Care [address] [facility] [place] [address] Lanie Ruiz CRNP [address] [place] [address] Other (Prescription verification ) Allergies Active Allergy Reactions Criticality Noted Date Comments Amoxicillin Low 07/20/2021 Mild rash- long time ago documented as of this encounter (statuses as of 01/07/2024) Medications Medication Sig Dispensed Refills Start Date End Date Status hydrOXYzine HCl 25 MG Oral Tablet 08/04/2021 Active NATURAL SUPPLEMENT Take by mouth daily . [facility] Active buPROPion HCl ER (SR) 150 MG Oral Tablet Extended Release 12 Hour (Wellbutrin SR) 1 daily in the evening 03/22/2022 Active Triamcinolone Acetonide 0.1 % External Cream (Aristocort) The hand twice daily for 1-2 weeks as needed 80 g 1 06/26/2023 Active Pantoprazole Sodium 40 MG Oral Tablet Delayed Release (Protonix) Take 1 Tablet by mouth in the morning. 90 Tablet 3 07/26/2023 Active Diclofenac Sodium 75 MG Oral Tablet Delayed Release (Voltaren)Indications :Chronic pain syndrome,Primary generalized (osteo)arthritis Take 1 Tablet by mouth 2 times a day with morning and evening meals. 60 Tablet 5 08/16/2023 Active Levocetirizine Dihydrochloride 5 MG Oral Tablet Take 1 Tablet by mouth in the morning. 90 Tablet 1 09/30/2023 Active Cyclobenzaprine HCl 10 MG Oral Tablet (Flexeril)Indications :Inflammatory arthritis Take 1 Tablet by mouth 2 times a day as needed for Muscle spasms. 60 Tablet 1 09/30/2023 Active Atorvastatin Calcium 10 MG Oral Tablet (Lipitor)Indications: Mixed dyslipidemia Take 1 Tablet by mouth in the morning. 90 Tablet 10/29/2023 Active Pregabalin 50 MG Oral Capsule (Lyrica) Take 50 mg in the morning by mouth and 100 mg in the evening by mouth daily. 270 Capsule 1 11/08/2023 Active Humira (2 Pen) 40 MG/0.8ML Subcutaneous Pen-injector Kit (Adalimumab) Inject 40 mg under the skin every 14 days. 1.6 mL 2 12/03/2023 Active buPROPion HCl ER (XL) 300 MG Oral Tablet Extended Release 24 Hour (Wellbutrin XL) Take 1 Tablet by mouth in the morning. 90 Tablet 1 12/03/2023 Active Clindamycin HCl 150 MG Oral Capsule (Cleocin)Indications: Peritonsillar abscess Take 1 Capsule by mouth in the morning and 1 Capsule at noon and 1 Capsule before bedtime. Do all this for 10 days. 30 Capsule 01/07/2024 4 Active Clindamycin HCl 300 MG Oral CapsuleIndications:Pe ritonsillar abscess Take 1 Capsule by mouth in the morning and 1 Capsule at noon and 1 Capsule before bedtime. Do all this for 10 days. 30 Capsule 01/07/2024 4 Active documented as of this encounter (statuses as of 01/07/2024) Active Problems Problem Noted Date Diagnosed Date [...] as of this encounter (statuses as of 01/07/2024) Resolved Problems Problem Noted Date Diagnosed Date Resolved Date Inflammatory arthritis 03/26/202207/23 documented as of this encounter (statuses as of 01/07/2024) Immunizations Name Administration Dates Next Due COVID-19 mRNA, LNP-s, No Pre serve, 2-Dose Series (Truzip) 08/24/2020,08/03/2020 Zoster Vaccine Recombinant (Shingrix) 06/01/2022 documented as of this encounter Social History Tobacco Use Types Packs/Day Years Used Date Smoking Tobacco: Every Day Cigarettes Smokeless Tobacco: Never Comments:Also [facility] Alcohol Use Standard Drinks/Week Comments Yes 0 [...] ages 0-17 years) Not on file 07/16/2023 Sex and Gender Information Value Date Recorded Sex Assigned at Female 12/28/2021 1:20 PM EDT Gender Identity Female 12/28/2021 1:20 PM EDT Sexual Orientation Straight 12/28/2021 1: 20 PM EDT Job Start Date Occupation Industry Not on file Not on file Not on file documented as of this encounter Miscellaneous Notes * Telephone Encounter - Clif Babin OSA - 01/07/2024 10:45 AM EDT Message left by Nazanin ([facility]) asking to clarify if both prescriptions were needed. I placed a call back to [facility] pharmacy at [phone], spoke with Eliz (pharmacist) to verify script was sent accurately. documented in this encounter Plan of Treatment Upcoming Encounters Date Type Department Care Team (Late st Contact Info) Description 01/24/2024 8:00 AM EST Office Visit Rheumatology [place] [address] [place] [address] Hesham Doll CRNP [facility] [place] [address] 02/27/2024 10:40 AM EST Office Visit Family Medicine [address] [phone] Zayda Hardy MD [address] [place] [address] [place] [address] 03/20/2024 2:30 PM EST Telemedicine Gastroenterology [address] [place] [address] Teresa Yadav, BLACKENER [address] [place] [address] Scheduled Procedures Name Priority Associated Diagnoses Date/Ti [...] Blood Test 01/31/2020 Sigmoidoscopy 01/31/2020 COVID-19 Vaccine (3 - Pfizer risk series) 09/21/2020 08/24/2020, 08/03/2020 Mammogram 09/15/2023 09/14/2022, 03, 09/08/2019, Additional history exists Influenza Vaccine (FLU shot) (#1) 2023 04/05/2014 [...] filedocumented as of this encounter Care Teams Organ Pipe Maker Metal Relationship Specialty Start Date End Date Zayda Hardy MD [address] [place] [address] [place] [phone] PCP - General Family Medicine 01/25/22 documented as of this encounter
--- OUTSIDE RECORDS SUMMARY | 2024-04-29 21:41 | External Medical Summary | Summary of Care ---
Author Name Unknown Organization [facility] Address [address] [place] [address] Phone [phone] Care Team Providers Care Software Quality Manager Name Role Phone Zayda Hardy MD Primary Care Provide r Reason for Visit * Reason Onset Date Comments Med Request 01/31/2024 Encounter Details Date Type Department Care Team (Late st Contact Info) Description 01/31/2024 Telephone Rheumatology, [place] [address] [place], [place] [id number] Mike Leos [facility] [address] [place] [address] Med Request Allergies Active Allergy Reactions Criticality Noted Date Comments Amoxicillin Low 07/20/2021 Mild rash- long time ago documented as of this encounter (statuses as of 02/03/2024) Medications NATURAL SUPPLEMENT Take by mouth daily . Medical [facility] Active buPROPion HCl ER (SR) 150 [...] encounter Miscellaneous Notes * Telephone Encounter - Mahi Perez OSA - 02/03/2024 10:43 AM EST Zabrina calling from [facility] [phone], calling in regards to Taltz 80 MG/ML Subcutaneous Solution Auto-injector (Ixekizumab). It appeared this had been sent to [facility], however, they are no longer able to fill this medication. Please re send it to [place] to [facility] . Please advise Thank-you! Mahi * Telephone Encounter - Mike Leos RPh - 01/31/2024 9:10 AM EST Medication/Dose/Route/Interval: Ixekizumab 160 mg once, followed by 80 mg every 4 weeks- script sent Mike Leos PharmHi DHi, [facility] Clinical Pharmacist 01/31/2024,9:13 AM documented in this encounter Plan of Treatment Upcoming Encounters Date Type Department Care Team (Late st Contact Info) Description 02/27/2024 10:40 AM EST Office Visit Family Medicine [address] [place] [phone] Zayda Hardy MD [address] [place] [address] [place] [address] 03/20/2024 2:30 PM EST Telemedicine Gastroenterology [address] [place] [address] Teresa Yadav CRNP [address] [place] [address] 04/27/2024 10:30 AM EST Office Visit Rheumatology [address] [place] [phone] Hesham Doll CRNP [address] [facility] [address] Scheduled Procedures Name Priority Associated Diagnoses Date/Ti [...] Primary documented in this encounter Care Teams Software Quality Manager Relationship Specialty Start Date End Date Zayda Hardy MD [address] [place] [address] [place] [phone] PCP - General Family Medicine 01/25/22 documented as of this encounter
--- OUTSIDE RECORDS SUMMARY | 2024-04-29 21:41 | External Medical Summary | Summary of Care ---
Author Name Unknown Organization [facility] Address [address] [facility] [place] [address] Phone [phone] Care Team Providers Care Surgeon/President Name Role Phone Zayda Hardy MD Primary Care Provide r Reason for Visit * Reason Onset Date Comments Medication Pre-auth 01/24/2024 daniel Encounter Details Date Type Department Care Team (Late st Contact Info) Description 01/24/2024 Telephone Rheumatology [facility] [address] [address] Hesham Castillo CRNP [address] [place] [address] Medication Pre-auth (daniel) Allergies Active Allergy Reactions Criticality Noted Date Comments Amoxicillin Low 07/20/2021 Mild rash- long time ago documented as of this encounter (statuses as of 01/28/2024) Medications NATURAL SUPPLEMENT Take by mouth daily [...] as of this encounter (statuses as of 01/28/2024) Active Problems Problem Noted Date Diagnosed Date [...] as of this encounter (statuses as of 01/28/2024) Resolved Problems Problem Noted Date Diagnosed Date Resolved Date Inflammatory arthritis 03/26/202207/23 documented as of this encounter (statuses as of 01/28/2024) Immunizations Name Administration Dates Next Due COVID-19 mRNA, LNP-s, No Pre serve, 2-Dose Series (The Combine) 08/24/2020,08/03/2020 Zoster Vaccine Recombinant (Shingrix) 06/01/2022 documented [...] severe, and/or uncontrolled infection Rheumatology Office Information: Education Finance Processor: HESHAM CASTILLO * Telephone Encounter - Yenifer [...] auth end date: N/A Rx Insurance Info: [facility] [place] Reference #: Cecelia Siegel Medication Staff Nurse Icu Resource Team [facility] 01/28/24,10:50 AM * Telephone Encounter - Anju Stahl RPh - 01/28/2024 1:11 PM EST [facility] cancel cosentyx and proceed with original bimzelex. [...] for Prednisone, DMARDs & IV/IM/SC Osteoporosis Meds ([facility] pharmacist pool p [phone]) Pharmacist Co-Management ([facility] ONLY; West select "no"): [...] [facility]) per established policies, procedures, and protocols. I also certify that this referral may serve as an initiation of service for the management of drug therapy in the above noted patient. [facility] providers will be responsible for scheduling patient visits, obtaining appropriate laboratory studies, and adjusting medication management therapy per patient's need, in addition to those roles spelled out in the clinic policy, procedures, and drug management protocols. I understand that the service provided by the [facility] is voluntary and have informed patient that they can refuse the service at their discretion. I am aware that the [facility] Clinic will provide me with a copy of the patient encounter via my [employer] In-Basket. I authorize the [facility] to carryout these activities on my behalf. I consider this program to be a necessary part of the patient's medical care. BERNICE Singh documented in this encounter Plan of Treatment Upcoming Encounters Date Type Department Care Team (Late st Contact Info) Description 02/27/2024 10:40 AM EST Office Visit Family Medicine [address] [place] [phone] Zayda Hardy MD [address] [place] [address] [place] [address] 03/20/2024 2:30 PM EST Telemedicine Gastroenterology [address] [place] [address] Teresa Yadav CRNP [address] [place] [address] 04/27/2024 10:30 AM EST Office Visit Rheumatology [address] [place] [phone] Hesham Castillo CRNP [facility] [place] [address] Scheduled Procedures Name Priority Associated Diagnoses Date/Ti [...] filedocumented as of this encounter Care Teams Surgeon/President Relationship Specialty Start Date End Date Zayda Hardy MD [address] [place] [address] [place] [address] PCP - General Family Medicine 01/25/22 documented as of this encounter
--- OUTSIDE RECORDS SUMMARY | 2024-04-29 21:41 | External Medical Summary | Summary of Care ---
Author Name Unknown Organization [facility] Address [address] [facility] [place] [address] Phone [phone] Care Team Providers Care Manager Of Training Name Role Phone Zayda Hardy MD Primary Care Provide r Reason for Visit * Reason Onset Date Comments Precert Approved 01/24/2024 harinder Encounter Details Date Type Department Care Team (Late st Contact Info) Description 01/24/2024 Telephone Rheumatology [place] [address] [place] [address] Hesham Castillo CRNP [address] [place] [address] Precert Approved (harinder) Allergies Active Allergy Reactions Criticality Noted Date Comments Amoxicillin Low 07/20/2021 Mild rash- long time ago documented as of this encounter (statuses as of 01/31/2024) Medications NATURAL SUPPLEMENT Take by mouth daily . Medical [facility] Active buPROPion HCl ER (SR) 150 MG [...] mRNA, LNP-s, No Pre serve, 2-Dose Series ([employer]) 08/24/2020,08/03/2020 Zoster Vaccine Recombinant (Shingrix) 06/01/2022 documented as of this encounter Social History Tobacco Use Types Packs/Day Years Used Date Smoking Tobacco: Every Day Cigarettes Smokeless Tobacco: Never Comments:Also [facility] Alcohol Use Standard Drinks/Week Comments Yes [...] on file Are you (or your family) alies eless or worried that you might be [...] Encounter - Destini Soto CPhT - 01/31/2024 2:36 PM EST Rheumatology Pre-Certification Response Approved - Script on file Thank you, Destini Soto CPhT Preform Plate Maker II [facility] 01/31/2024,2:36 PM * Telephone Encounter - Destini Soto CPhT - 01/31/2024 11:38 AM EST Patient Phone Numbers Sent In Hand Guides message to patient to schedule MTDM appointment for Medication Education. Appointment scheduled as noted below. 02/10/2024 Thank you, Destini Soto CPhT Preform Plate Maker II [facility] ([facility]) 01/31/2024,11:38 AM * Telephone Encounter - Mike Leos RPh - 01/31/2024 9:15 AM EST Rheumatology Pharmacist Appointment Request Department & Provider: Rheumatology [facility] [[id number]] - Pharmacist #1 Rheumatology [facility] [[id number]] Patient to be scheduled for visit type: New Pharm [[id number]], New Video Home Pharm [[id number]], or Telephonic Medicine Visit [[id number]] Length of visit: 30 minutes Reason for visit: Med Immanuel: Harinder Time Frame: within 2 weeks Request routed to [facility] Specialty Scheduling Pool ([id number]) Please route this encounter back to Rheum Pharmacist Refill Pool/Class [p [phone]] if unable to schedule patient after 3 attempts. Mike Leos, Pharm. D., [facility] Clinical Pharmacist 01/31/2024,9:15 AM * Telephone Encounter - Brandy Olsen OSA - 2024 4:10 PM EST [place] - Patient Related Communication Reason for Call: Medication question/side effect (Physician): received call from pt in regards to script for Harinder. They received approval for medication. Asking to [...] severe, and/or uncontrolled infection Rheumatology Office Information: Rag Inspector: HESHAM CASTILLO * Telephone Encounter - Yenifer [...] auth end date: N/A Rx Insurance Info: [employer] [place] Reference #: Cecelia Siegel Medication Instrumental Musician [facility] 01/28/24,10:50 AM * Telephone Encounter - Anju Stahl RPh - 01/28/2024 1:11 PM EST [facility] cancel cosentyx and proceed with original bimzelex. See depression screen below * Telephone Encounter - Hesham Catsillo CRNP - 01/28/2024 12:57 PM EST Please [...] for Prednisone, DMARDs & IV/IM/SC Osteoporosis Meds ([facility] rheumatology pharmacist pool p [id number]) Pharmacist Co-Management ([facility] ONLY; West select "no"): [...] [facility]) per established policies, procedures, and protocols. I also certify that this referral may serve as an initiation of service for the management of drug therapy in the above noted patient. [facility] providers will be responsible for scheduling patient visits, obtaining appropriate laboratory studies, and adjusting medication management therapy per patient's need, in addition to those roles spelled out in the clinic policy, procedures, and drug management protocols. I understand that the service provided by the [facility] is voluntary and have informed patient that they can refuse the service at their discretion. I am aware that the [facility] Clinic will provide me with a copy of the patient encounter via my Kicksend In-Basket. I authorize the [facility] to carryout these activities on my behalf. I consider this program to be a necessary part of the patient's medical care. BERNICE Singh documented in this encounter Plan of Treatment Upcoming Encounters Date Type Department Care Team (Late st Contact Info) Description 02/27/2024 10:40 AM EST Office Visit Family Medicine [address] [place] [phone] Zayda Hardy MD [address] [place] [address] [place] [address] 03/20/2024 2:30 PM EST Telemedicine Gastroenterology [address] [place] [address] Teresa Yadav CRNP [address] [place] [address] 04/27/2024 10:30 AM EST Office Visit Rheumatology [address] [place] [phone] Hesham Castillo CRNP [address] [place] [address] Scheduled Procedures Name Priority Associated Diagnoses Date/Ti [...] filedocumented as of this encounter Care Teams Manager Of Training Relationship Specialty Start Date End Date Zayda Hardy MD [address] [place] [address] [place] [id number] PCP - General Family Medicine 01/25/22 documented as of this encounter
--- OUTSIDE RECORDS SUMMARY | 2024-04-29 21:41 | External Medical Summary | Summary of Care ---
Author Name Unknown Organization [facility] Address [address] [facility] [place] [address] Phone [phone] Care Team Providers Care Hall Worker Name Role Phone Zayda Hardy MD Primary Care Provide r Reason for Visit * Reason Comments Sore Throat Encounter Details Date Type Department Care Team (Late st Contact Info) Description 01/07/2024 9:40 AM EDT Telemedicine Virtual Urgent Care [address] [facility] [place] [address] Lanie Ruiz CRNP [address] [place] [address] Peritonsillar abscess*; Rash and nonspecific skin eruption Allergies Active Allergy Reactions Criticality Noted Date Comments Amoxicillin Low 07/20/2021 Mild rash- long time ago documented as of this encounter (statuses as of 01/07/2024) Medications Medication Sig Dispensed Refills Start Date End Date Status hydrOXYzine HCl 25 MG Oral Tablet 08/04/2021 Active NATURAL SUPPLEMENT Take by mouth daily . Medical [facility] Active buPROPion HCl ER (SR) 150 [...] mRNA, LNP-s, No Pre serve, 2-Dose Series ([employer]) 08/24/2020,08/03/2020 Zoster Vaccine Recombinant (Shingrix) 06/01/2022 documented as of this encounter Social History Tobacco Use Types Packs/Day Years Used Date Smoking Tobacco: Every Day Cigarettes Smokeless Tobacco: Never Comments:Also [facility] Alcohol Use Standard Drinks/Week Comments Yes [...] 18 years and over) Not on file 4 Are you (or your family) alise eless [...] on file documented as of this encounter Progress Notes * Lanie Ruiz CRNP - 01/07/2024 9:40 AM EDT Patient location: HOME. I was not in a hospital or clinic location. After connecting through televideo, patient was verified with two unique identifiers. Patient (or authorized legal freight representative) was then informed that this was a Telemedicine visit and being conducted confidentially over secure lines. Methods to assure confidentiality were taken. Patient acknowledged consent and understanding of privacy and security of the Telemedicine visit. The patient agreed to participate. HPI: Anna Almazan is a 48 year old female who presents for evaluation of sore throat for the past 2 days.Noticed yesterday it is becoming more swollen on left side. Has had tonsillitis with [employer] 4 times this year so far. Last occurrence in September. Hoping to get on an abx because if not, she will end up in the ER again. She has never had this drained. It's located in the same spot as previous episodes. No fevers. Is swallowing ok. Has never had strep. Always treated with clindamycin which resolves it. Was evaluated by ENT a few months ago who offered tonsillectomy but pt declined at that time. Pt showed a picture of her tonsils she took on her phone. Also has a rash that has formed 2 days ago in a few different places on right side. Has some on right arm, right hip, beneath right armpit. Is a little itchy and warm to touch. Just started humira 3-4 weeks ago and is unsure if it could be related. No other new products, food, or medications. ROS: See HPI for pertinent positives and negatives. PAST MEDICAL HISTORY: ALLERGIES- MEDS - PAST HOSP- PAST SURG- ROS - FAM HIST - Past Surgical History: Procedure Laterality Date COLONOSCOPY, DIAGNOSTIC (RECTUM) 02/22/2023 sigmoid diverticulosis/hemorrhoids/recall 10 years/COLONOSCOPY FLEXIBLE PROXIMAL DIAGNOSTIC performed by Katharine Arellano MD at [facility] Social History Tobacco Use Smoking status: Every Day Current packs/day: 0.50 Types: Cigarettes Smokeless tobacco: Never Tobacco comments: Also [employer] Substance Use Topics Alcohol use: Yes Comment: Social Vaping/E-Cigarette Use Vaping/E-Cigarette Use Current Every Day User Vaping/E-Cigarette Substances Vaping/E-Cigarette Devices Patient Active Problem List Diagnosis Anxiety Major depressive disorder with single episode, in partial remission (HCC) Irritable bowel syndrome with both constipation and diarrhea Primary generalized (osteo)arthritis Tobacco use disorder Mixed dyslipidemia Encounter for long-term (current) use of medications 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 Do all this for 10 days. 30 Capsule 0 Clindamycin HCl 300 MG Oral Capsule Take 1 Capsule by mouth in the morning and 1 Capsule at noon and 1 Capsule before bedtime. Do all this for 10 days. 30 Capsule 0 hydrOXYzine HCl 25 MG Oral Tablet NATURAL SUPPLEMENT Take by mouth daily . Medical [facility] buPROPion HCl ER (SR) 150 MG Oral Tablet Extended Release 12 Hour (Wellbutrin SR) 1 daily in the evening Triamcinolone Acetonide 0.1 % External Cream (Aristocort) The hand twice daily for 1-2 weeks as needed 80 g 1 Pantoprazole Sodium 40 MG Oral Tablet Delayed [...] the eveningby mouth daily. 270 Capsule 1 Humira (2 Pen) 40 MG/0.8ML Subcutaneous Pen-injector Kit (Adalimumab) Inject 40 mg under the skin every 14 days. 1.6 mL 2 buPROPion HCl ER (XL) 300 MG Oral Tablet Extended Release 24 Hour (Wellbutrin XL) Take 1 Tablet by mouth in the morning. 90 Tablet 1 No current facility-administered medications for this visit. OBJECTIVE: PHYSICAL EXAM: Vitals not obtained. Exam consistent with telemedicine visit. General: alert, healthy, and no distress Oropharynx: left tonsillar enlargement. No exudate evident. Lungs: respirations easy and unlabored Skin: large macular areas noted on right forearm, beneath right axillary region, and right hip. ASSESSMENT/PLAN: Peritonsillar abscess (Primary) - Clindamycin HCl 150 MG Oral Capsule (Cleocin); Take 1 Capsule by mouth in the morning and 1 Capsule at noon and 1 Capsule before bedtime. Do all this for 10 days. - Clindamycin HCl 300 MG Oral Capsule; Take 1 Capsule by mouth in the morning and 1 Capsule at noonand 1 Capsule before bedtime. Do all this for 10 days. Rash and nonspecific skin eruption Limited evaluation d/t nature of telemedicine visit. Unclear etiology of rash. Recommend to update rheumatology and monitor. May use hydrocortisone and cool compresses. Possibly reactive from [employer]? Start clindamycin as ordered. Encouraged probiotic during tx. Recommend f/u with ENT for possible sx management options. Salt water gargles, tylenol, motrin, chloraseptic spray, hot tea with honey. Red flag symptoms reviewed. Return precautions provided. If sx worsen or fail to improve, f/u with PCP or report to nearest CC location. Patient/guardian demonstrates understanding of the visit, course of treatment, and instructions. BERNICE Sh[facility] documented in this encounter Plan of Treatment Upcoming Encounters Date Type Department Care Team (Late st Contact Info) Description 01/24/2024 8:00 AM EST Office Visit Rheumatology [place] [phone] [place] [address] Hesham Doll CRNP [address] [place] [address] 02/27/2024 10:40 AM EST Office Visit Family Medicine [address] [place] [phone] Zayda Hardy MD [address] [place] [address] [place] [address] 03/20/2024 2:30 PM EST Telemedicine Gastroenterology [address] [place] [address] Teresa Yadav CRNP [address] [place] [address] Scheduled Procedures Name Priority Associated Diagnoses Date/Ti [...] series) 09/21/2020 08/24/2020, 08/03/2020 Mammogram 09/15/2023 09/14/2022, 03/, 09/08/2019, Additional history exists Influenza Vaccine (FLU [...] as of this encounter Visit Diagnoses Diagnosis Peritonsillar abscess- Primary Rash and nonspecific skin eruption Rash and other nonspecific skin eruption documented in this encounter Care Teams Hall Worker Relationship Specialty Start Date End Date Zayda Hardy MD [address] [place] [address] [place] [address] PCP - General Family Medicine 01/25/22 documented as of this encounter
--- OUTSIDE RECORDS SUMMARY | 2024-04-29 21:41 | External Medical Summary | Summary of Care ---
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)*; Encounter for therapeutic drug monitoring; Primary generalized (osteo)arthritis; NSAID long-term use; Chronic pain syndrome; Inflammatory arthritis Allergies Active Allergy Reactions Criticality Noted Date Comments Amoxicillin Low 07/20/2021 Mild rash- long time ago documented as of this encounter (statuses as of 01/27/2024) Medications NATURAL SUPPLEMENT Take by mouth daily [...] as of this encounter (statuses as of 01/27/2024) Active Problems Problem Noted Date Diagnosed Date [...] as of this encounter (statuses as of 01/27/2024) Resolved Problems Problem Noted Date Diagnosed Date Resolved Date Inflammatory arthritis 03/26/202207/23 documented as of this encounter (statuses as of 01/27/2024) Immunizations Name Administration Dates Next Due COVID-19 mRNA, LNP-s, No Pre serve, 2-Dose Series ([employer]) 08/24/2020,08/03/2020 Zoster Vaccine Recombinant (Shingrix) 06/01/2022 documented [...] SUPPLEMENT Take by mouth daily . [facility] Pantoprazole Sodium 40 MG Oral Tablet Delayed [...] and Taltz. We will start authorization for Bimzelx at this time. Advised patient to get updated labs 1 month after starting biologic treatment. Ordered and printed labs and given to the patient at this time. Follow up 3 months. We will start prednisone taper 20 mg x 10 days, 15 mg x 10 days, 10 mgx 10 days, 5 mg x 10 days. We will patient sign release of records to review labs from September. Advised patient to contact clinic with any questions, concerns, worsening symptoms. Patient agreeable to th is plan and verbalized understanding. Patient advised to hold any immunosuppressant medication if they are sick or on antibiotics. Labs ordered for monitoring for medication toxicity. Plan: 1. Labs: CBC/CMP 1 month after starting biologic 2. Will start authorization for Bimzelx 3. Follow up 3 months 4. Start [...] 10:40 AM EST Office Visit Family Medicine [address] [place] [phone] Zayda Hardy MD [address] [place] [address] [place] [address] 03/20/2024 2:30 PM EST Telemedicine Gastroenterology [address] [place] [address] Teresa Yadav CRNP [address] [place] [address] 04/27/2024 10:30 AM EST Office Visit Rheumatology [address] [place] [phone] Hesham Doll CRNP [address] [place] [address] Scheduled Orders Name Type Priority Associated Diagnoses [...] polyarthropathy documented in this encounter Care Teams Forklift Technician Relationship Specialty Start Date End Date Zayda Hardy MD [address] [place] [address] [place] [phone] PCP - General Family Medicine 01/25/22 documented as of this encounter"
--- OUTSIDE RECORDS SUMMARY | 2024-04-29 21:41 | External Medical Summary | Summary of Care ---
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 [facility] Pantoprazole Sodium 40 MG Oral Tablet Delayed [...] 10:40 AM EST Office Visit Family Medicine [address] [place] [phone] Zayda Hardy MD [address] [place] [address] [place] [address] 03/20/2024 2:30 PM EST Telemedicine Gastroenterology [address] [place] [address] Teresa Yadav CRNP [address] [place] [address] 04/27/2024 10:30 AM EST Office Visit Rheumatology [address] [place] [phone] Hesham Doll CRNP [address] [place] [address] Scheduled Orders Name Type Priority Associated Diagnoses [...] polyarthropathy documented in this encounter Care Teams Wad Compressor Operator Adjuster Relationship Specialty Start Date End Date Zayda Hardy MD [address] [place] [address] [place] [phone] PCP - General Family Medicine 01/25/22 documented as of this encounter"
--- OUTSIDE RECORDS SUMMARY | 2024-04-29 21:41 | External Medical Summary | Summary of Care ---
Author Name Unknown Organization [facility] Address [address] [facility] [place] [address] Phone [phone] Care Team Providers Care Hand Deicer Element Winder Name Role Phone Zayda Hardy MD Primary Care Provide r Reason for Visit * Reason Onset Date Comments Precert In Process 01/24/2024 13 PEYMAN sanchez Encounter Details Date Type Department Care Team (Late st Contact Info) Description 01/24/2024 Telephone Rheumatology [facility] [address] [place] [address] Hesham Castillo CRNP [address] [place] [address] Precert In Process (13 PEYMANMAVERICK sanchez) Allergies Active Allergy Reactions Criticality Noted Date [...] severe, and/or uncontrolled infection Rheumatology Office Information: Production Clerk: HESHAM CASTILLO * Telephone Encounter - Yenifer Garcia CPhT - 01/28/2024 3:24 PM EST Images from the original note were not included. Rheumatology Pre-Certification Response Denied - see below Type Date User Summary Attachment Precert 01/28/2024 10:51 AM Peyman Siegel OSA - - Note: Please see [...] auth end date: N/A Rx Insurance Info: VANITA ALBERTO Reference #: Peyman Siegel Medication Trade Show Specialist [facility] 01/28/24,10:50 AM * Telephone Encounter - Anju Stahl RPh - 01/28/2024 1:11 PM EST [facility] cancel cosentyx and proceed with original [...] have a wonderful day, Anju Stahl RPh Electronically signed by Anju Stahl [facility], located within [facility] at 01/27/2024 9:25 AM EST * Telephone Encounter - Hesham Castillo CRNP [...] for Prednisone, DMARDs & IV/IM/SC Osteoporosis Meds ([facility] rheumatology pharmacist pool p [phone]) Pharmacist Co-Management ([facility] ONLY; West select "no"): [...] will have medication therapy managed [facility]) per established policies, procedures, and protocols. I also certify that this referral may serve as an initiation of service for the management of drug therapy in the above noted patient. [facility] providers will be responsible for scheduling patient visits, obtaining appropriate laboratory studies, and adjusting medication management therapy per patient's need, in addition to those roles spelled out in the clinic policy, procedures, and drug management protocols. I understand that the service provided by the [facility] Clinic is voluntary and have informed patient that they can refuse the service at their discretion. I am aware that the [facility] Clinic will provide me with a copy of the patient encounter via my Jambo In-Basket. I authorize the [facility] to carryout these activities on my behalf. I consider this program to be a necessary part of the patient's medical care. BERNICE Singh documented in this encounter Plan of Treatment Upcoming Encounters Date Type Department Care Team (Late st Contact Info) Description 02/27/2024 10:40 AM EST Office Visit Family Medicine [address] [place] [phone] Zayda Hardy MD [address] [place] [address] [place] [address] 03/20/2024 2:30 PM EST Telemedicine Gastroenterology [address] [place] [address] Teresa Yadav CRNP [address] [place] [address] 04/27/2024 10:30 AM EST Office Visit Rheumatology [address] [place] [phone] Hesham Castillo CRNP [address] [place] [address] [place] [address] Scheduled Procedures Name Priority Associated Diagnoses Date/Ti [...] filedocumented as of this encounter Care Teams Hand Deicer Element Winder Relationship Specialty Start Date End Date Zayda Hardy MD [address] [place] [address] [place] [address] PCP - General Family Medicine 01/25/22 documented as of this encounter
--- OUTSIDE RECORDS SUMMARY | 2024-04-29 21:41 | External Medical Summary | Summary of Care ---
Author Name Unknown Organization [facility] Address [address] [facility] [place] [address] Phone [phone] Care Team Providers Care Website Programmer Name Role Phone Zayda Hardy MD Primary Care Provide r Reason for Visit * Reason Onset Date Comments Precert Approved 01/24/2024 harinder Encounter Details Date Type Department Care Team (Late st Contact Info) Description 01/24/2024 Telephone Rheumatology [place] [address] [address] Hesham Castillo CRNP [address] [place] [address] Precert Approved (harinder) Allergies Active Allergy Reactions Criticality Noted Date Comments Amoxicillin Low 07/20/2021 Mild rash- long time ago documented as of this encounter (statuses as of 01/31/2024) Medications NATURAL SUPPLEMENT Take by mouth daily . Medical [facility] Active buPROPion HCl ER (SR) 150 [...] mRNA, LNP-s, No Pre serve, 2-Dose Series ([employer]) 08/24/2020,08/03/2020 Zoster Vaccine Recombinant (Shingrix) 06/01/2022 documented as of this encounter Social History Tobacco Use Types Packs/Day Years Used Date Smoking Tobacco: Every Day Cigarettes Smokeless Tobacco: Never Comments:Also [facility] Alcohol Use Standard Drinks/Week Comments Yes 0 [...] Pharmacist Appointment Request Department & Provider: Rheumatology [facility] [place] [facility] [[id number]] - Pharmacist #1 Rheumatology [facility] [[id number]] Patient to be scheduled for visit type: New Pharm [[id number]], New Video Home Pharm [3384], or Telephonic Medicine Visit [[id number]] Length of visit: 30 minutes Reason for visit: Med Immanuel: Harinder Time Frame: within 2 weeks Request routed to [facility] Specialty Scheduling Pool ([id number]) Please route this encounter back to [facility] Pharmacist Refill Pool/Class [p [phone]] if unable to schedule patient after 3 attempts. Mike Leos, Pharm. D., [facility] Clinical Pharmacist 01/31/2024,9:15 AM * Telephone Encounter - Brandy Olsen OSA - 2024 4:10 PM EST [place] - Patient Related Communication Reason for Call: [...] severe, and/or uncontrolled infection Rheumatology Office Information: Piano Mechanic Apprentice: HESHAM CASTILLO * Telephone Encounter - Yenifer [...] end date: N/A Rx Insurance Info: [place] [place] Reference #: Cecelia Siegel Medication Mold Washer [facility] 01/28/24,10:50 AM * Telephone Encounter - Anju Stahl RPh - 01/28/2024 1:11 PM EST [facility] cancel cosentyx and proceed with original [...] advise. * Telephone Encounter - Anju Stahl RP - 01/27/2024 9:22 AM EST Rheumatology Pre-Certification [...] depression with Bimzelex * Telephone Encounter - Elke CastilloBERNICE Kaur - 01/24/2024 12:40 PM EST Rheumatology Education, Pre-Certification, and/or Pharmacist Co-Management Request Medication Education: yes Pre-Certification: [facility]: Pre-cert for Prednisone, DMARDs & IV/IM/SC Osteoporosis Meds ([facility] rheumatology pharmacist pool p [phone]) Pharmacist Co-Management ([facility] ONLY; West select "no"): [...] will have medication [facility] ([facility]) per established policies, procedures, and protocols. I also certify that this referral may serve as an initiation of service for the management of drug therapy in the above noted patient. [facility] providers will be responsible for scheduling patient visits, obtaining appropriate laboratory studies, and adjusting medication management therapy per patient's need, in addition to those roles spelled out in the clinic policy, procedures, and drug management protocols. I understand that the service provided by the [facility] is voluntary and have informed patient that they can refuse the service at their discretion. I am aware that the [facility] Clinic will provide me with a copy of the patient encounter via my Usermind In-Basket. I authorize the [facility] Clinic to carryout these activities on my behalf. I consider this program to be a necessary part of the patient's medical care. BERNICE Singh documented in this encounter Plan of Treatment Upcoming Encounters Date Type Department Care Team (Late st Contact Info) Description 02/27/2024 10:40 AM EST Office Visit Family Medicine [address] [place] [address] Zayda Hardy MD [address] [place] [address] [place] [address] 03/20/2024 2:30 PM EST Telemedicine Gastroenterology [address] [place] [address] Teresa Yadav CRNP [address] [facility] [place] [address] 04/27/2024 10:30 AM EST Office Visit Rheumatology [address] [place] [address] Hesham Castillo CRNP [address] [place] [address] Scheduled Procedures Name Priority Associated Diagnoses Date/Ti [...] filedocumented as of this encounter Care Teams Website Programmer Relationship Specialty Start Date End Date Zayda Hardy MD [address] [place] [address] [place] [address] PCP - General Family Medicine 01/25/22 documented as of this encounter
--- OUTSIDE RECORDS SUMMARY | 2024-04-29 21:41 | External Medical Summary | Summary of Care ---
Author Name Unknown Organization [facility] Address [address] [facility] [place] [address] Phone [phone] Care Team Providers Care Salvage Diver Name Role Phone Zayda Hardy MD Primary Care Provide r Reason for Visit * Reason Comments Rheum Follow Up Follow up Encounter Details Date Type Department Care Team (Latest Contact Info) Description 01/24/2024 8:00 AM EST Office Visit Rheumatology [place] [id number] 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 Medical [facility] Pantoprazole Sodium 40 MG Oral Tablet Delayed [...] questions, concerns, worsening symptoms. Patient agreeable to t his plan and verbalized understanding. Patient advised to [...] 10:40 AM EST Office Visit Family Medicine [address] [place] [phone] Zayda Hardy MD [address] [place] [address] [place] [address] 03/20/2024 2:30 PM EST Telemedicine Gastroenterology [address] [place] [address] Teresa Yadav CRNP [address] [place] [address] 04/27/2024 10:30 AM EST Office Visit Rheumatology [address] [place] [phone] Hesham Doll CRNP [address] [facility] [place] [address] Scheduled Orders Name Type Priority Associated Diagnoses [...] polyarthropathy documented in this encounter Care Teams Salvage Diver Relationship Specialty Start Date End Date Zayda Hardy MD [address] [place] [address] [place] [address] PCP - General Family Medicine 01/25/22 documented as of this encounter"
--- OUTSIDE RECORDS SUMMARY | 2024-04-29 21:42 | External Medical Summary | Summary of Care ---
Author Name Unknown Organization [facility] Address [address] [facility] [place] [address] Phone [phone] Care Team Providers Care Customs Examiner Name Role Phone Zayda Hardy MD Primary Care Provide r Reason for Visit * Reason Onset Date Comments Medical Records Request 11/08/2023 [facility] Encounter Details Date Type Department Care Team (Late st Contact Info) Description 11/08/2023 Telephone Rheumatology [facility] [address] [place] [address] Hesham Doll CRNP [address] [place] [address] Medical Records Request ([facility] ) Allergies Active Allergy Reactions Criticality Noted Date Comments Amoxicillin Low 07/20/2021 Mild rash- long time ago documented as of this encounter (statuses as of 11/08/2023) Medications Medication Sig Dispensed Refills Start Date End Date Status hydrOXYzine HCl 25 MG Oral Tablet 08/04/2021 Active NATURAL SUPPLEMENT Take by mouth daily . [facility] Active buPROPion HCl ER (SR) 150 [...] mouth daily. 270 Capsule 1 11/08/2023 Active Certolizumab Pegol 2 X 200 MG/ML Subcutaneous Prefilled Syringe Kit (Cimzia)Indications: Inflammatory arthritis Inject 200 mg under the skin every 14 days. 2 mL 11 07/17/2023 4 Discontinu ed(Medicat ion/Dose Changed) documented as of this encounter (statuses as of 11/08/2023) Active Problems Problem Noted Date Diagnosed Date [...] as of this encounter (statuses as of 11/08/2023) Resolved Problems Problem Noted Date Diagnosed Date Resolved Date Inflammatory arthritis 03/26/202207/23 documented as of this encounter (statuses as of 11/08/2023) Immunizations Name Administration Dates Next Due COVID-19 [...] encounter Miscellaneous Notes * Telephone Encounter - Ileana Torres OSA - 11/08/2023 12:00 PM EDT Medical records request was completed and sent to [address] [address] to get labs from 09/25/23 sent to [facility]. Copy sent to [facility] also. documented in this encounter Plan of Treatment Upcoming Encounters Date Type Department Care Team (Late st Contact Info) Description 11/11/2023 12:30 PM EDT Imaging Radiology [address] [place] [address] 01/24/2024 8:00 AM EST Office Visit Rheumatology [address] [place] [address] Hesham Doll CRNP [facility] [place] [address] 02/21/2024 2:30 PM EST Telemedicine Gastroenterology [address] [place] [address] Teresa Yadav CRNP [address] [place] [address] 02/27/2024 10:40 AM EST Office Visit Family Medicine [address] [place] [phone] Zayda Hardy MD [address] [place] [address] [place] [address] Scheduled Procedures Name Priority Associated Diagnoses Date/Ti me COLONOSCOPY FLEXIBLE PROXIMA L DIAGNOSTIC Recall Screening for colon cancer Health Maintenance Due Date Last Done Comments Pneumococcal Vaccine: Pediatrics (0 to 5 Years) and At-Risk Patients (6 to 64 Years) (1 of 2 - PCV) 1981 Depression Monitoring 1987 HIV Screening 1990 DTaP,Tdap,and Td Vaccines (1 - Tdap) 1994 Hepatitis B Vaccine (1 of 3 - 19+ 3-dose series) 1994 Pap Smear 01/31/1996 Cervical Cancer Screening 2005 HPV/Co-Test 2005 Cologuard 01/31/2020 Fecal Occult Blood Test 01/31/2020 Sigmoidoscopy 01/31/2020 COVID-19 Vaccine (3 - Pfizer risk series) 09/21/2020 08/24/2020, 08/03/2020 Mammogram 09/15/2023 09/14/2022, 05/16, 09/08/2019, Additional history exists Influenza Vaccine (FLU [...] filedocumented as of this encounter Care Teams Customs Examiner Relationship Specialty Start Date End Date Zayda Hardy MD [address] [place] [address] [place] [address] PCP - General Family Medicine 01/25/22 documented as of this encounter
--- OUTSIDE RECORDS SUMMARY | 2024-04-29 21:42 | External Medical Summary | Summary of Care ---
Author Name Unknown Organization [facility] Address [address] [facility] [place] [address] Phone [phone] Care Team Providers Care Service Vehicle Operator Name Role Phone Zayda Hardy MD Primary Care Provide r Reason for Visit * Reason Onset Date Comments Precert Denied 10/28/2023 Cimzia (2 Syring e) 200MG/ML syringe kit Encounter Details Date Type Department Care Team (Late st Contact Info) Description 10/28/2023 Telephone Rheumatology [place] [id number] [facility] [place] [address] Maco Ibrahim MD [facility] [place] [address] Precert Denied (Cimzia (2 Syringe) 200MG/M... Allergies Active Allergy Reactions Criticality Noted Date Comments Amoxicillin Low 07/20/2021 Mild rash- long time ago documented as of this encounter (statuses as of 11/06/2023) Medications Medication Sig Dispensed Refills Start Date End Date Status hydrOXYzine HCl 25 MG Oral Tablet 2 Active NATURAL SUPPLEMENT Take by mouth daily . Medical [place] Active buPROPion HCl ER (SR) 150 MG Oral Tablet Extended Release 12 Hour (Wellbutrin SR) 1 daily in the evening 3 Active Dicyclomine HCl 10 MG Oral Capsule (Bentyl) Take 1 Capsule by mouth 2 times a day as needed for Cramping. 60 Capsule 2 3 Active DULoxetine HCl 30 MG Oral Capsule Delayed Release Particles (Cymbalta)Indication s:Anxiety,Major depressive disorder with single episode, in partial remission (HCC) Take 1 Capsule by mouth in the morning. Do not cut, crush or chew. 30 Capsule 5 3 Active Triamcinolone Acetonide 0.1 % External Cream (Aristocort) The hand twice daily for 1-2 weeks as needed 80 g 1 4 Active Certolizumab Pegol 2 X 200 MG/ML Subcutaneous Prefilled Syringe Kit (Cimzia)Indications: Inflammatory arthritis Inject 200 mg under the skin every 14 days. 2 mL 11 4 Active Pantoprazole Sodium 40 MG Oral Tablet [...] Muscle spasms. 60 Tablet 1 4 Active Pregabalin 50 MG Oral Capsule (Lyrica) Take 1 Capsule by mouth in the morning and 1 Capsule before bedtime. 180 Capsule 1 4 11/01/19 24 Discontinued documented as of this encounter (statuses as of 11/06/2023) Active Problems Problem Noted Date Diagnosed Date [...] as of this encounter (statuses as of 11/06/2023) Resolved Problems Problem Noted Date Diagnosed Date Resolved Date Inflammatory arthritis 03/26/202207/23 documented as of this encounter (statuses as of 11/06/2023) Immunizations Name Administration Dates Next Due COVID-19 mRNA, LNP-s, No Pre serve, 2-Dose Series ([employer]) 08/24/2020,08/03/2020 Zoster Vaccine Recombinant (Shingrix) 06/01/2022 documented [...] encounter Miscellaneous Notes * Telephone Encounter - Maco Ibrahim MD - 11/05/2023 11:06 AM EDT See myg * Telephone Encounter - Ashley Mejia LPN - 11/04/2023 2:09 PM EDT Denied Provider may contact [facility] for peer to peer at Formulary alternatives not tried/failed * Telephone Encounter - Brandy Olsen OSA - 10/31/2023 2:22 PM EDT [facility] - Patient Related Communication Reason for Call: Prior auth/approval of non-DMARD ([facility]): [facility]. Following up on auth for Cimsandya. Asking for a call back please VASILE Diaz * Telephone Encounter - Mary Mejia LPN - 10/29/2023 8:22 AM EDT Completed form faxed to [facility] at [phone] * Telephone Encounter - Kim Hernandez LPN - 10/28/2023 9:43 AM EDT Please reauth Cimzia Medication form on Dr Robbins desk at documented in this encounter Plan of Treatment Upcoming Encounters Date Type Department Care Team (Late st Contact Info) Description 11/08/2023 11:00 AM EDT Office Visit Rheumatology [address] [place] [phone] Hesham Doll CRNP [address] [facility] [place] [address] 11/11/2023 12:30 PM EDT Imaging Radiology [address] [place] [address] 02/21/2024 2:30 PM EST Telemedicine Gastroenterology [address] [place] [address] Teresa Yadav CRNP [address] [place] [address] 02/27/2024 10:40 AM EST Office Visit Family Medicine [address] [place] [phone] Zayda Hardy MD [address] [place] [address] [place] [address] Scheduled Procedures Name Priority Associated Diagnoses Date/Ti [...] filedocumented as of this encounter Care Teams Service Vehicle Operator Relationship Specialty Start Date End Date Zayda Hardy MD [address] [place] [address] [place] [address] PCP - General Family Medicine 01/25/22 documented as of this encounter
--- OUTSIDE RECORDS SUMMARY | 2024-04-29 21:42 | External Medical Summary | Summary of Care ---
Author Name Unknown Organization [facility] Address [address] [facility] [place] [address] Phone [phone] Care Team Providers Care Neck Pinner Name Role Phone Zayda Hardy MD Primary Care Provide r Reason for Visit * Reason Onset Date Comments Medical Records Request 11/08/2023 [facility] Encounter Details Date Type Department Care Team (Late st Contact Info) Description 11/08/2023 Telephone Rheumatology [facility] [address] [place] [address] Hesham Doll CRNP [address] [place] [address] Medical Records Request ([facility] ) [...] as needed 80 g 1 06/26/2023 Active Certolizumab Pegol 2 X 200 MG/ML Subcutaneous Prefilled Syringe Kit (Cimzia)Indications:I nflammatory arthritis Inject 200 mg under the skin every 14 days. 2 mL 11 07/17/2023 Active Pantoprazole Sodium 40 MG Oral Tablet [...] mouth daily. 270 Capsule 1 11/08/2023 Active documented as of this encounter (statuses [...] mRNA, LNP-s, No Pre serve, 2-Dose Series ([employer]) 08/24/2020,08/03/2020 Zoster Vaccine Recombinant (Shingrix) 06/01/2022 documented [...] records request was completed and sent to [place] [address] to get labs from 09/25/23 sent to [facility]. Copy sent to [facility] also. documented in this encounter Plan of Treatment Upcoming Encounters Date Type Department Care Team (Late st Contact Info) Description 11/11/2023 12:30 PM EDT Imaging Radiology [address] [place] [address] 01/24/2024 8:00 AM EST Office Visit Rheumatology [address] [place] [address] Hesham Doll CRNP [address] [place] [address] [place] [address] 02/21/2024 2:30 PM EST Telemedicine Gastroenterology [address] [place] [address] Teresa Yadav CRNP [address] [place] [address] 02/27/2024 10:40 AM EST Office Visit Family Medicine [address] [place] [phone] Zayda Hardy MD [address] [place] [address] [place] [address] Scheduled Procedures Name Priority Associated Diagnoses Date/Ti [...] filedocumented as of this encounter Care Teams Neck Pinner Relationship Specialty Start Date End Date Zayda Hardy MD [address] [place] [address] [place] [address] PCP - General Family Medicine 01/25/22 documented as of this encounter
--- OUTSIDE RECORDS SUMMARY | 2024-04-29 21:42 | External Medical Summary | Summary of Care ---
Author Name Unknown Organization [facility] Address [address] [facility] [place] [address] Phone [phone] Care Team Providers Care Appraiser Name Role Phone Zayda Hardy MD Primary Care Provide r Reason for Visit * Reason Onset Date Comments Medication Refill 11/29/2023 Encounter Details Date Type Department Care Team (Late st Contact Info) Description 11/29/2023 Refill Rheumatology [place] [address] [employer] [place] [address] Ofe Castillo CRNP [facility] [place] [address] Allergies Active Allergy Reactions Criticality Noted Date Comments Amoxicillin Low 07/20/2021 Mild rash- long time ago documented as of this encounter (statuses as of 12/03/2023) Medications Medication Sig Dispensed Refills Start Date End Date Status hydrOXYzine HCl 25 MG Oral Tablet 08/04/2021 Active NATURAL SUPPLEMENT Take by mouth daily . Medical [facility] Active buPROPion HCl ER (SR) 150 [...] 14 days. 1.6 mL 2 12/03/2023 Active Humira (2 Pen) 40 MG/0.8ML Subcutaneous Pen-injector Kit (Adalimumab) Inject 40 mg under the skin every 14 days. 1.6 mL 2 11/13/2023 Discontinu ed(Refill) documented as of this encounter (statuses as of 12/03/2023) Active Problems Problem Noted Date Diagnosed Date [...] as of this encounter (statuses as of 12/03/2023) Resolved Problems Problem Noted Date Diagnosed Date Resolved Date Inflammatory arthritis 03/26/202207/23 documented as of this encounter (statuses as of 12/03/2023) Immunizations Name Administration Dates Next Due COVID-19 [...] encounter Miscellaneous Notes * Telephone Encounter - Ofe Castillo CRNP - 12/03/2023 9:35 AM EDTSigned Prescriptions: Disp Refills Humira (2 Pen) 40 MG/0.8ML Subcutaneous Pe*1.6 mL 2 Sig: Inject 40 mg under the skin every 14 days.Authorizing Provider: OFE CASTILLO * Telephone Encounter - Ofe Castillo CRNP - 12/03/2023 9:35 AM EDT Refilled and signed at this time. * Telephone Encounter - Mary Mejia LPN - 12/02/2023 1:09 PM EDTPending Prescriptions: Disp Refills Humira (2 Pen) 40 MG/0.8ML Subcutaneous Pe*1.6 mL 2 Sig: Inject 40 mg under the skin every 14 days. * Telephone Encounter - Brandy Olsen OSA - 11/29/2023 11:37 AM EDT [place] - Patient Related Communication Reason for Call: Refill of non-narcotics (Pharmacy Pool): pharmacy called in regards to refill for Humira. Asking for a 90 day supply and 3 refills to be sent to [facility]. [facility] contacted [facility] in regards to filling but they need a new script VASILE Diaz documented in this encounter Plan of Treatment Upcoming Encounters Date Type Department Care Team (Late st Contact Info) Description 01/24/2024 8:00 AM EST Office Visit Rheumatology [address] [place] [address] Ofe Castillo CRNP [address] [place] [address] [place] [address] 02/27/2024 10:40 AM EST Office Visit Family Medicine [address] [place] [address] Zayda Hardy MD [address] [place] [address] [place] [address] 03/20/2024 2:30 PM EST Telemedicine Gastroenterology [address] [place] [address] Teresa Yadav CRNP [address] [place] [address] Scheduled Procedures Name Priority Associated Diagnoses Date/Ti [...] filedocumented as of this encounter Care Teams Appraiser Relationship Specialty Start Date End Date Zayda Hardy MD [address] [place] [address] [place] [address] PCP - General Family Medicine 01/25/22 documented as of this encounter
--- OUTSIDE RECORDS SUMMARY | 2024-04-29 21:42 | External Medical Summary | Summary of Care ---
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 270 Capsule 1 11/08/2023 Active Dicyclomine HCl 10 MG Oral Capsule (Bentyl) Take 1 Capsule by mouth 2 times a day as needed for Cramping. 60 Capsule 2 04/20/2022 4 Discontinu ed(Medicat ion List Clean Up) DULoxetine HCl 30 MG Oral Capsule Delayed Release Particles (Cymbalta)Indication s:Anxiety,Major depressive disorder with single episode, in partial remission (HCC) Take 1 Capsule by mouth in the morning. Do not cut, crush or chew. 30 Capsule 5 02/25/2023 4 Discontinu ed(Medicat ion List Clean Up) Certolizumab Pegol 2 X 200 MG/ML Subcutaneous Prefilled Syringe Kit (Cimzia)Indications: Inflammatory arthritis Inject 200 mg under the skin every 14 days. 2 mL 11 07/17/2023 4 Discontinu ed(Medicat ion/Dose Changed) Pregabalin 50 MG Oral Capsule (Lyrica) TAKE 1 CAPSULE BY MOUTH IN THE MORNING AND 1 CAPSULE BEFORE BEDTIME. 180 Capsule 1 11/01/2023 4 Discontinu ed(Refill) documented as of this encounter [...] mRNA, LNP-s, No Pre serve, 2-Dose Series ([facility]) 08/24/2020,08/03/2020 Zoster Vaccine Recombinant (Shingrix) 06/01/2022 documented [...] No 07/16/2023 Does the household have a [facility] source of income? (Household - for [...] on file documented as of this encounter Last Filed Vital Signs Vital Sign Reading Time Taken Comments Blood Pressure - - Pulse - - Temperature 36.7 C (98 F) 11/08/2023 11:06 AM EDT Respiratory Rate - - Oxygen Saturation - - Inhaled Oxygen Concentration - - Weight 108.4 kg (239 lb) 11/08/2023 11:06 AM EDT Height - - Body Mass Index 42.34 06/24/2023 12:56 PM EDT documented in this encounter Progress Notes * Hesham Doll CRNP - 11/08/2023 11:08 AM EDT Date of last clinic visit reviewed: 03/22/2023 Current medication therapy: Cimzia Prior medication therapy: Plaquenil, methotrexate Date of last labs reviewed from September, Subjective: Patient seen today for further follow up evaluation of seronegative polyarthritis and non radiographic . Since the last visit she continues on Cimzia every other week and feeling pretty well. Notesjulio always has back pain. She reports she was in at [facility] for tonsillitis with a peritonsillar abscess. She notes that she recently quit her job and started disability. She continues to benefit from Lyrica and we decreased 50 mg daily and is wondering if we could increase dose. She continues on diclofenac with benefit.. She see's dermatology for a right nail fungal infection and eczema. She is taking a steroid cream but uses her own helena cream. She had a change of insurance and was denied on her new insurance for Cimzia. Musculoskeletal ROS: . Abnormal: joint pain and back pain . AM stiffness (hours): 5 . Pain scale (0-10): 3 . Fatigue scale (0-10): 3 Other ROS: . Constitutional: fatigue . Head normal . Eyes: dryness . Ears, nose, throat, mouth: dry mouth . Cardiovascular: normal . Respiratory: normal . Gastrointestinal: heartburn . Genitourinary: normal . Skin: Eczema . Neurologic: numbness and tingling of hands. Social History: Social History Tobacco Use Smoking status: Every Day Current packs/day: 0.50 Types: Cigarettes Smokeless tobacco: Never Tobacco comments: Also [employer]IJUANA Substance Use Topics Alcohol use: Yes Comment: Social Vaping/E-Cigarette Use Vaping/E-Cigarette Use Current Every Day User Vaping/E-Cigarette Substances Vaping/E-Cigarette Devices Current Outpatient Medications Medication Sig Dispense Refill hydrOXYzine HCl 25 MG Oral Tablet NATURAL SUPPLEMENT Take by mouth daily . Medical marajuana buPROPion HCl ER (SR) 150 MG Oral Tablet Extended Release 12 Hour (Wellbutrin SR) 1 daily in the evening Triamcinolone Acetonide 0.1 % External Cream (Aristocort) The hand twice daily for 1-2 weeks as needed 80 g 1 Certolizumab Pegol 2 X 200 MG/ML Subcutaneous Prefilled Syringe Kit (Cimzia) Inject 200 mg under the skin every 14 days. 2 mL 11 Pantoprazole Sodium 40 MG Oral Tablet Delayed [...] 0 Pregabalin 50 MG Oral Capsule (Lyrica) TAKE 1 CAPSULE BY MOUTH IN THE MORNING AND 1 CAPSULE BEFORE BEDTIME. 180 Capsule 1 No current facility-administered medications for this visit. Physical Exam: Temp 36.7 C (98 F) (Infrared ) | Wt 108.4 kg (239 lb) | BMI 42.34 kg/m | BSA 2.19 m General: alert, healthy, and no distress HENT: normocephalic, external ears normal, no mucosal erythema, no mucosal edema, moist mucosa, no oral ulcers Eye Exam: PERRL, EOMI, conjunctiva are pink and non-injected, sclera clear Neck: supple, no adenopathy Lymph: no palpable lymphadenopathy Heart: regular rate & rhythm, no murmur, and no gallops Lungs: clear to auscultation , no rales, wheezes or rhonchi Abdomen: abdomen soft, non-tender, and normal bowel sounds Extremities: no edema, no clubbing, no cyanosis Neuro Exam: alert & oriented x 3 with fluent speech, no focal motor/sensory deficits, gait normal Skin: skin color, texture, turgor are normal, Eczema on b/l hands. Musculoskeletal Exam: Muscle strength 5/5 in upper and lower extremities. Decreased range of motionof bilateral shoulders. Software Writer strength 5/5. No tenderness synovitis of hands on exam. Tenderness of lower back. Labs reviewed from [facility] Gertrudis off of patient's phone from September, CBC, CMP within acceptable range. 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 Almazan returns today for management of seronegative arthritis and non radiographic . She is doing overall well on Cimzia but she has new insurance and was denied. Discussed starting authorization for Humira. Benefits and side effects reviewed. We will discontinue Cimzia at this time. We will increase Lyrica to 50 mg in the morning and 100 mg at night. We will continue diclofenac current dose. We will obtain labs from [facility]. Advised patient to get updated labs 1 month after starting Humira. We will follow up in 3 months. Patient advised to hold any immunosuppressant medication if they are sick or on antibiotics. Labs ordered for monitoring for medication toxicity. Patient advised to contact the clinic with questions. Plan: 1. Labs: CBC/CMP 1 month after starting Humira 2. Discontinue Cimzia 3. We will start authorization for Humira 4. Continue diclofenac 5. Increase Lyrica 6. Follow up 3 months 7. consent form signed. 8. Discussed the above in detail with the patient. All questions answered. CC BERNICE Carlos Department of Rheumatology I saw the patient. I agree with the findings and plan as documented by Hesham QUEEN in this note. Maco Ibrahim MD Rheumatology Department documented in this encounter Nursing Notes * Mary Mejia LPN - 11/08/2023 11:05 AM EDT Chief Complaint Patient presents with Rheum Follow Up Follow up - OA documented in this encounter Plan of Treatment Upcoming Encounters Date Type Department Care Team (Late st Contact Info) Description 11/11/2023 12:30 PM EDT Imaging Radiology [address] [place] [address] 01/24/2024 8:00 AM EST Office Visit Rheumatology [place] [id number] [employer] [place] [address] Hesham Doll CRNP [address] [place] [address] 02/21/2024 2:30 PM EST Telemedicine Gastroenterology [address] [place] [address] Teresa Yadav CRNP [address] [place] [address] 02/27/2024 10:40 AM EST Office Visit Family Medicine [address] [place] [phone] Zayda Hardy MD [address] [place] [address] [place] [address] Scheduled Orders Name Type Priority Associated Diagnoses Orde r Schedule CBC WITH WBC DIFFERENTIAL Lab Routine Encounter for long-term (current) use of medications Every 3 Months for 999 Occurrences starting 11/08/2023 until 11/07/2024 COMPREHENSIVE METABOLIC PANEL Lab Routine Encounter for long-term (current) use of medications Every 3 Months for 999 Occurrences starting 11/08/2023 until 11/07/2024 Scheduled Procedures Name Priority Associated Diagnoses Date/Ti [...] of lumbar region (HCC)- Primary Encounter for long-term (current) use of medications Encounter for long-term (current) use of other medications Primary generalized (osteo)arthritis Generalized osteoarthrosis, involving multiple sites NSAID long-term use Encounter for long-term (current) use of non-steroidal anti-inflammatories Inflammatory arthritis Unspecified inflammatory polyarthropathy Chronic pain syndrome documented in this encounter Care Teams Graphic Designer Relationship Specialty Start Date End Date Zayda Hardy MD [address] [place] [address] [place] [phone] PCP - General Family Medicine 01/25/22 documented as of this encounter"
--- OUTSIDE RECORDS SUMMARY | 2024-04-29 21:42 | External Medical Summary | Summary of Care ---
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 1.6 mL 2 11/13/2023 Active documented as of this encounter (statuses as of 11/27/2023) Active Problems Problem Noted Date Diagnosed Date [...] as of this encounter (statuses as of 11/27/2023) Resolved Problems Problem Noted Date Diagnosed Date Resolved Date Inflammatory arthritis 03/26/202207/23 documented as of this encounter (statuses as of 11/27/2023) Immunizations Name Administration Dates Next Due COVID-19 mRNA, LNP-s, No Pre serve, 2-Dose Series ([email or web address]) 08/24/2020,08/03/2020 Zoster Vaccine Recombinant (Shingrix) 06/01/2022 documented [...] as of this encounter Progress Notes * Dafne Mike Lee, [facility] - 11/27/2023 1:40 PM EDT Clinical Pharmacy Service (Rheumatology): Medication Education After connecting to the patient via telephone, the patient was identified by name and date of . Patient was then informed that this was a telephone call only visit. The patient agreed to participate. Visit Disposition: Routine follow-up Total call duration was 20 minutes. ASSESSMENT Provided some education and information on the Humira. Hiren was not covered by her new insurance. History of TB/Hep B: No History of CHF: No History of Malignancy: No HEALTH MAINTENANCE: Immunizations recommended: Influenza and Pneumonia - Prevnar 20 Labs recommended: yes PLAN OF ACTION Medication Regimen: START :Adalimumab (Humira and biosimilars) per specialty workflow: 40 mg SQ every other week- script sent Approved by the insurance Follow-Up Appointment: Physician: 01/24/24 EDUCATION Medication Information: TNF Inhibitors The following information was verbally provided to the patient and afterwards, a copy of the ACR medication guide was provided to supplement with more extensive information: Adalimumab (Brand Name: Humira), is a Tumor Necrosis Factor (TNF) inhibitor, that inhibit inflammation and prevent disease progression. This medication is available in a subcutaneous injection or as an intravenous infusion. This medication may be taken with other oral medications for RA or may be taken alone. Side effects may include but are not limited to injection site reactions such as localized burning or itching, risk of worsening heart failure, and cancer, most commonly skin cancers and lymphoma. However, a more severe allergic reaction such as swelling of the lips, difficulty breathing, and low blood pressure can occur but medications to decrease the chances of an infusion reaction are available for use as needed. Because this medication can lower the ability of your immune system to fight infections, there is an increased risk of developing infections, including TB or fungal infections. If any of the above- mentioned side effects occur, please inform your physician or rheumatology pharmacist so that we can take the next appropriate steps in your care. Please make your physician aware if you are or planning to become , have kidney/liver damage, history of heart failure, history of MS or any demyelinating disease, HIV, Hepatitis B/C, any active infections, planning to get any vaccinations, or if you have new or changed medicationson your medication list as these factors may impact your care plan. This medication may take up to 4-12 weeks to see an effect on your joints. For your safety, we will monitor you routinely through aseries of blood work. For further inquiries, please refer to the medication information provided toyou as well as your rheumatology care team. Mike Leos, Pharm. D., BCPS Clinical Pharmacist Rheumatology Department 11/27/2023,1:40 PM documented in this encounter Plan of Treatment Upcoming Encounters Date Type Department Care Team (Late st Contact Info) Description 12/02/2023 2:00 PM EDT Telemedicine Gastroenterology [address] [place] [address] Teresa Yadav CRNP [address] [place] [address] 01/24/2024 8:00 AM EST Office Visit Rheumatology [address] [place] [address] Hesham Doll CRNP [address] [place] [address] [place] [address] 02/27/2024 10:40 AM EST Office Visit Family Medicine [address] [place] [phone] Zayda Hardy MD [address] [place] [address] [place] [address] Scheduled Procedures Name Priority Associated Diagnoses Date/Ti [...] Primary documented in this encounter Care Teams Stage Builder Relationship Specialty Start Date End Date Zayda Hardy MD [address] [place] [address] [place] [phone] PCP - General Family Medicine 01/25/22 documented as of this encounter
--- OUTSIDE RECORDS SUMMARY | 2024-04-29 21:42 | External Medical Summary | Summary of Care ---
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 [facility] Referring Provider Role: Specialist Specialty: Rheum Reason for Referral: Med Education Comments Rheumatology Pharmacist Disease Modifying Antirheumatic Drug (DMARD) Co- Management Minimum frequency patient should be seen in person for medication management: As appropriate per clinical condition and patient status By my signature, I understand that my patient, Anna Almazan will have her medication therapy managed by the [facility] Medication Therapy Disease Management [facility] ([facility]) per established policies, procedures, and protocols. I also certify that this referral may serve as an initiation of service for the management of drug therapy in the above noted patient. [facility] providers will be responsible for scheduling patient visits, obtaining appropriate laboratory studies, and adjusting medication management therapy per patient's need, in addition to those roles spelled out in the clinic policy, procedures, and drug management protocols. I understand that the service provided by the [facility] Clinic is voluntary and have informed patient that they can refuse the service at their discretion. I am aware that the [facility] will provide me with a copy of the patient encounter via my [employer] In-Basket. I authorize the [facility] to carry out these activities on my behalf. I consider this program to be a necessary part of the patient's medical care. 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 [facility] Active buPROPion HCl ER (SR) 150 MG [...] 14 days. 1.6 mL 2 11/13/2023 Active Certolizumab Pegol 2 X 200 MG/ML Subcutaneous Prefilled Syringe Kit (Cimzia)Indications: Inflammatory arthritis Inject 200 mg under the skin every 14 days. 2 mL 11 07/17/2023 Discontinu ed(Medicat ion/Dose Changed) documented as of this encounter (statuses as of 11/13/2023) Active Problems Problem Noted Date Diagnosed Date [...] as of this encounter (statuses as of 11/13/2023) Resolved Problems Problem Noted Date Diagnosed Date Resolved Date Inflammatory arthritis 03/26/202207/23 documented as of this encounter (statuses as of 11/13/2023) Immunizations Name Administration Dates Next Due COVID-19 mRNA, LNP-s, No Pre serve, 2-Dose Series ([employer]) 08/24/2020,08/03/2020 Zoster Vaccine Recombinant (Shingrix) 06/01/2022 documented [...] encounter Miscellaneous Notes * Telephone Encounter - Mahad Deluca RPh - 11/13/2023 9:07 AM EDTSigned Prescriptions: Disp Refills Humira (2 Pen) 40 MG/0.8ML Subcutaneous Pe*1.6 mL 2 Sig: Inject 40 mg under the skin every 14 days.Authorizing Provider: OFE CASTILLO User: MENDEL DELUCA TTHEW * Telephone Encounter - Mahad Deluca RPh - 11/13/2023 9:05 AM EDT Rheumatology: Refill Request(s) Per review of the refill parameters, Medication was refilled Mahad Deluca RPh [facility] Clinical Pharmacist Rheumatology Department 11/13/2023,9:05 AM * Telephone Encounter - Sasha Waggoner CPhT - 11/12/2023 4:09 PM EDT Rheumatology Pre-Certification Response Approved - Script pended - to be filled at [facility] (P: [phone]) Thank you, Sasha Waggoner CPhT-Adv Field Attendant Miniature Model [employer] [facility] 11/12/2023,4:09 PM * Telephone Encounter - Mary Mejia LPN - 11/12/2023 3:38 PM EDT Received a request from [facility] for Humira Rx to be sent to [facility] * Telephone Encounter - Anju Stahl RPh - 11/10/2023 3:06 PM EDT Rheumatology Pre-Certification Request Medication/Disease State Information: Diagnosis: Rheumatoid arthritis of multiple sites without rheumatoid factor [M06.09] Patient Age: [age] year old Medication/Dose/Route/Interval: Humira: 40 mg/0.8mL SQ every other week Site of Care: Self-Administered Insurance considerations: Non-[facility] commerical Previously Tried Therapy: Previously tried and resulted in inadequate response/therapeutic failure: Cimzia, Methotrexate PO, and Plaquenil Reauthorization: No Required Screening Information: Vaccination(s): will coordinate care for pertinent vaccine TB Testing:Completed under scans, care everywhere or epic Hepatitis B Screenings: Completed under scans, care everywhere or epic Hepatitis C Screenings: Completed under scans, care everywhere or epic No active, severe, and/or uncontrolled infection Rheumatology Office Information: Auto Crane Driver: OFE CASTILLO Rheumatology Pharmacist: Meredith Doshi Rheumatology Pharmacist Appointment Request Department & Provider: Rheumatology [address] [[id number]] - Pharmacist #1 Rheumatology [facility] [[id number]] Patient to be scheduled for visit type: Telephonic Medicine Visit [[id number]] Length of visit: 30 min Reason for visit: Med Edu: Humira Time Frame: within 2 weeks WEST Request routed to [facility] Specialty Scheduling Pool ([id number]) Please route this encounter back to Rheum Pharmacist Refill Pool/Class [p [phone]] if unable to schedule patient after 3 attempts. Thank you and have a wonderful day, Anju Stahl RPh * Telephone Encounter - Ofe Castillo CRNP - 11/08/2023 12:12 PM EDT Rheumatology Education, Pre-Certification, and/or Pharmacist Co-Management Request Medication Education: yes Pre-Certification: [facility]: Pre-cert for Prednisone, DMARDs & IV/IM/SC Osteoporosis Meds ([facility] rheumatology pharmacist pool p [phone]) Pharmacist Co-Management ([facility] ONLY; West select "no"): No Pharmacist Co-Management Medication/Disease State Information: Diagnosis: Rheumatoid arthritis of multiple sites without rheumatoid factor [M06.09] and M45.A6) Non-radiographic axial spondyloarthritis of lumbar region Medication:Adalimumab (Humira and biosimilars) per specialty workflow: 40 mg SQ every other week Failed or Intolerant to or Contraindicated: Cimzia, Methotrexate PO, and Plaquenil Comments Lab up to date Rheumatology Pharmacist Disease Modifying Antirheumatic Drug (DMARD) Co- Management (If Applicable) Minimum frequency patient should be seen in person for medication management: As appropriate per clinical condition and patient status By my signature, I understand that my patient [facility] per established policies, procedures, and protocols. I also certify that this referral may serve as an initiation of service for the management of drug therapy in the above noted patient. [facility] providers will be responsible for scheduling patient visits, obtaining appropriate laboratory studies, and adjusting medication management therapy per patient's need, in addition to those roles spelled out in the clinic policy, procedures, and drug management protocols. I understand that the service provided by the [facility] is voluntary and have informed patient that they can refuse the service at their discretion. I am aware that the [facility] will provide me with a copy of the patient encounter via my [employer] In-Basket. I authorize the [facility] to carryout these activities on my behalf. I consider this program to be a necessary part of the patient's medical care. BERNICE Singh documented in this encounter Plan of Treatment Upcoming Encounters Date Type Department Care Team (Late st Contact Info) Description 11/22/2023 10:30 AM EDT Telemedicine Rheumatology, [address] [address] Agc[employer], Pharmacist Rheumatology [address] [place] [address] 01/24/2024 8:00 AM EST Office Visit Rheumatology [address] [place] [address] Ofe Castillo CRNP [address] [place] [address] [place] [address] 02/21/2024 2:30 PM EST Telemedicine Gastroenterology [address] [place] [address] Teresa Yadav CRNP [address] [facility] [place] [address] 02/27/2024 10:40 AM EST Office Visit Family Medicine [address] [place] [phone] Zayda Hardy MD [address] [place] [address] [place] [address] Scheduled Procedures Name Priority Associated Diagnoses Date/Ti me COLONOSCOPY FLEXIBLE PROXIMA L DIAGNOSTIC Recall Screening for colon cancer Scheduled Referrals Name Type Priority Associated Diagnoses Orde r Schedule PHARMACIST MEDS THERAPY MGMT REFERRAL OP Referral Within 30 days (routine) 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
[2024-04-29] MEDS: CLINDAMYCIN/D5W 300 MG/50 ML BAG IV SCH (22:53)
[2024-04-29] MEDS: ZOLPIDEM TARTRATE 5 MG TAB PO STA (22:53)
--- OUTSIDE RECORDS SUMMARY | 2024-04-30 02:30 | External Medical Summary | Summary of Care ---
Author Name Unknown Organization [facility] Address [address] [facility] [place] [address] Phone [phone] Care Team Providers Care Department Assistant Name Role Phone Zayda Hardy MD Primary Care Provide r Reason for Visit * Reason Comments Acute Sore throat, white s pots, pt had mono last month, approx 3 days. 100.3 temp reported this morning. Encounter Details Date Type Department Care Team (Late st Contact Info) Description 04/29/2024 11:00 AM EST Office Visit Family Medicine [address] [place] [phone] Kamilah Sheets PA-C [address] [place] [address] [place] [address] Sore throat* Allergies Active Allergy Reactions Criticality Noted Date Comments Amoxicillin Low 07/20/2021 Mild rash- long time ago documented as of this encounter (statuses as of 04/29/2024) Medications NATURAL SUPPLEMENT Take by mouth daily . [facility] Active Pantoprazole Sodium 40 MG [...] bedtime. 120 Capsule 3 04/24/19 25 Active documented as of this encounter (statuses as of 04/29/2024) Active Problems Problem Noted Date Diagnosed Date [...] as of this encounter (statuses as of 04/29/2024) Resolved Problems Problem Noted Date Diagnosed Date Resolved Date Inflammatory arthritis 03/26/202207/23 documented as of this encounter (statuses as of 04/29/2024) Immunizations Name Administration Dates Next Due COVID-19 [...] Sign Reading Time Taken Comments Blood Pressure 128/82 04/29/2024 10:52 AM EST Pulse 102 04/29/2024 10:52 AM EST Temperature 37.6 C (99.7 F) 04/29/2024 1 0:52 AM EST Respiratory Rate - - Oxygen Saturation 97% 04/29/2024 10: 52 AM EST Inhaled Oxygen Concentration - - Weight 111.2 kg (245 lb 3.2 oz) 025 10:52 AM EST Height - - Body Mass Index 43.44 06/24/2023 12:56 PM EDT documented in this encounter Progress Notes * Kamilah Sheets PA-C - 04/29/2024 10:55 AM EST Nursing Notes: Anthony Johns, JUDGE 04/29/24 1052 Sign at exiting of workspace The patient has been properly identified by confirmation of name and date of . Chief Complaint Patient presents with Acute Sore throat, white spots, pt had mono last month, approx 3 days. 100.3 temp reported this morning. Pt here today with sore throat, white spots for the past few days. Temp of 100.3. Had mono last month. She has hx of tonsillitis and peritonsillar abscess. Pain is on the left. Pt has fever, chills. Rapid strep negative. Review of patient's allergies indicates: Allergen Reactions Amoxil [Amoxicillin] Mild rash- long time ago Current Outpatient Medications Medication Sig Dispense Refill NATURAL SUPPLEMENT Take by mouth daily . [facility] Pantoprazole Sodium 40 MG Oral Tablet Delayed Release (Protonix) Take 1 Tablet by mouth in the morning. 90 Tablet 3 Cyclobenzaprine HCl 10 MG Oral Tablet (Flexeril) Take 1 Tablet by mouth 2 times a day as needed forMuscle spasms. 60 Tablet 1 buPROPion HCl ER (XL) 300 MG [...] in the morning. 90 Tablet 0 Pregabalin 100 MG Oral Capsule (Lyrica) Take 1 Capsule by mouth in the morning and 1 Capsule beforebedtime. 120 Capsule 3 No current facility-administered medications for this visit. Past Medical History: Diagnosis Date Ankylosing spondylitis (HCC) DDD (degenerative disc disease), cervical DDD (degenerative disc disease), lumbar Depression with anxiety Fatty liver disease, nonalcoholic Inflammatory arthritis Primary generalized (osteo)arthritis Social History Socioeconomic History Marital status: Spouse [...] Insecurity: No Food Insecurity (07/16/2023) Food Insecurity Worried About Running Out of Food in the Last Year: Never true Ran Out of Food in the Last Year: Never true Do you need food for this week? (Adult - for ages 18 years and over): No Transportation Needs: No Transportation Needs (07/16/2023) Transportation [...] Stability Do you currently live in a group home or have no steady place to sleep [...] - for ages0-17 years): Not on file O:Blood pressure 128/82, pulse 102, temperature 99.7 F (37.6 C), temperature source Tympanic, weight 245 lb 3.2 oz (111.2 kg), SpO2 97%. GENERAL: alert and mild distress NECK: supple. Left sided lymphadenopathy OROPHARYNX: left sided peritonsillar abscess - uvula shift A:Sore throat (Primary) - STREP A SCREEN, POINT OF CARE (ENTER/EDIT) - GROUP A STREP PCR Rapid strep negative. Pt needs to go to ER for evaluation and possible drainage. Any questions/problems, please call. If anything changes, worsens, develops new sx, please call DONATO. Follow Up: Return if symptoms worsen or fail to improve. Kamilah Sheets PA-C documented in this encounter Nursing Notes * Anthony Johns CMA - 04/29/2024 10:52 AM EST The patient has been properly identified by confirmation of name and date of . Chief Complaint Patient presents with Acute Sore throat, white spots, pt had mono last month, approx 3 days. 100.3 temp reported this morning. documented in this encounter Plan of Treatment Upcoming Encounters Date Type Department Care Team (Late st Contact Info) Description 05/08/2024 2:00 PM EST Telemedicine Gastroenterology [address] [place] [address] Teresa Yadav CRNP [address] [facility] [place] [address] 06/29/2024 3:00 PM EDT Office Visit Rheumatology [address] [place] [phone] Hesham Doll CRNP [address] [facility] [place] [address] 10/15/2024 8:00 AM EDT Office Visit Family Medicine [address] [place] [phone] Zayda Hardy MD [address] [place] [address] [place] [address] Pending Results Name Type Priority Associated Diagnoses Date /Time GROUP A STREP PCR Lab Routine Sore throat 04/29/2024 11:04 AM EST Scheduled Procedures Name Priority Associated Diagnoses Date/Ti [...] Not on filedocumented as of this encounter Procedures Procedure Name Priority Date/Time Associated Diagnosis Comments STREP A SCREEN, POINT OF CARE (ENTER/EDIT) Routine 04/29/2024 Sore throat documented in this encounter Results * STREP A SCREEN, POINT OF CARE (ENTER/EDIT) (04/29/2024) Strep A Result Negative Negative Procedural Control Valid? Yes Lot Number [id number] Expiration Date Swab Throat swab / Unknown 04/29/2024 Kamilah Sheets PA-C LAB POINT OF CARE TEST ENT ER/EDIT ORDERABLES Final Result documented in this encounter Visit Diagnoses Diagnosis Sore throat- Primary Acute pharyngitis documented in this encounter Care Teams Department Assistant Relationship Specialty Start Date End Date Zayda Hardy MD [address] [place] [address] [place] [phone] PCP - General Family Medicine 01/25/22 documented as of this encounter
[2024-04-30 04:09] VITALS: TEMP 97.9
[2024-04-30] MEDS: LIDOCAINE 2%/EPINEPHRINE 1:100,000 20ML INFIL ONE (06:15)
--- NOTE | 2024-04-30 06:57 | ENT Consultation ---
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 I believe the medications largely resolved her early abscess. I&D performed bedside and culture sent. Recommend full diet, discharge and follow up tomorrow with me as needed in clinic. 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 Presented to ED with left sore throat and trismus. 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 Patient admitted for IV antibiotics and steroids to improve trisumus for bedside I&D. Allergies Allergy/AdvReac Type Severity Reaction Status Date / Time amoxicillin Allergy Rash Verified 04/13/24 08:35 contact metal agent AdvReac contact Verified 04/13/24 08:35 dermatitis Home Medications Medication Instructions Recorded Confirmed Type atorvastatin 20 mg tablet (Lipitor) 20 mg PO QAM 03/31/24 04/29/24 History bupropion HCl 300 mg 24 hr tablet, 300 mg PO QAM 03/31/24 04/29/24 History extended release (Wellbutrin XL) diclofenac sodium 75 mg 75 mg PO BID 03/31/24 04/29/24 History tablet,delayed release ixekizumab 80 mg/mL subcutaneous 80 mg subcut UD 03/31/24 04/29/24 History auto-injector (Taltz Autoinjector) levocetirizine 5 mg tablet (Xyzal) 5 mg PO QAM 03/31/24 04/29/24 History pantoprazole 40 mg tablet,delayed 40 mg PO QAM 03/31/24 04/29/24 History release (Protonix) pregabalin 100 mg capsule (Lyrica) 100 mg PO BID 03/31/24 04/29/24 History Patient History Medical History Depression with anxiety Fatty liver Cigarette smoker Morbid obesity History of mononucleosis dx 03/29/24; pt was prescribed Cefdinir x 10d Neuropathy Chronic pain Spondyloarthritis Anxiety and depression Hyperlipidemia GERD (gastroesophageal reflux disease) Surgical History History of cholecystectomy History of endometrial ablation History of open reduction and internal fixation (ORIF) procedure right ankle > hardware intact History of esophagogastroduodenoscopy (EGD) Hx of colonoscopy ~2022 Hx of LASIK Social History Smoking Status: Current every day smoker Tobacco Type: Cigarettes Cigarettes Per Day: 1/2 PPD; Second Hand Exposure: No; Do You Dip or Chew Tobacco: No; Hx Alcohol Use: No Hx Substance Use: Yes Prescribed Medications: Marijuana Last Used Substance: Days (ago) Last Used Substance Other:: uses daily Substance Use Type Other:: medical marijuana Preferred Language: Ukrainian Communication Ability: Effective Cat Wagon Operator Required: No Beliefs That Will Affect Care: None Current Living Situation: Spouse Feels Safe at Home: Yes Assistive Devices: Cane Review of Systems Review of Systems: No pertinent ROS positives unless otherwise mentioned in the HPI Physical Exam Physical Exam: Ears: Normal pinna Nose: No external deformity Neck: trachea midline Neuro: Alert and oriented, Moves all 4 extremities, Symmetric and normal facial nerve function Derm: No lesions noted on face or neck Cardiovascular: No JVD OC: Minimal swelling of the left tonsil. Looks much improved from CT. PROCEDURE NOTE: After verbal consent and time out the patient was injected with 2% lidocaine with 1:100,000 epinephrine into the left anterior tonsillar pillar. Approximately 4 mLs were injected. The patient was observed for 5 minutes to allow the medicine to work. Next a 16 gauge needle with a 10 mL syringe was inserted through the palatoglossus muscle into the xochitl-tonsillar space under vacuum. This was perfomed at three additional locations in a vertical line parallel to the medial tonsillar border into the peritonsillar space. No large abscess pocket discovered. Small amount of purulence removed and sent for culture. Results & Data Vital Signs (Past 12 Hours) Vital Signs Temp Pulse Pulse Resp BP BP Pulse Ox 04/30/24 03:37 36.6 C 85 16 122/73 93 04/29/24 23:55 95 H 04/29/24 23:08 04/29/24 23:06 36.7 C 87 18 103/66 94 04/29/24 19:35 36.5 C 96 H 18 139/82 93 O2 Del Method 04/30/24 03:37 Room Air 04/29/24 23:55 04/29/24 23:08 Room Air 04/29/24 23:06 Room Air 04/29/24 19:35 Room Air PG Care Time/CCT Total # of Minutes Spent Total Time Spent with Patient: Total time spent is greater than 50% in coordination of care (as documented) at patient's floor/unit and/or counseling patient: Coding Level of Care Code 35540 IN/OBS CONSULT LVL 2,35M Diagnoses Peritonsillar abscess J36 Tonsillitis J03.90 Ankylosing spondylitis M45.9 Tobacco use Z72.0 CPT Codes Drainage of Tonsil Abscess - [address] ([id number])
[2024-04-30 08:04] VITALS: BP 138/81; PULSE 71; RESP 18; O2SAT 94
[2024-04-30] MEDS: PANTOprazole 40 MG TAB PO SCH (09:16)
[2024-04-30] MEDS: ATORVASTATIN 20 MG TAB PO SCH (09:17)
[2024-04-30] MEDS: buPROPion XL 300 MG TABCR PO SCH (09:17)
[2024-04-30] MEDS: CETIRIZINE HCL 10 MG TABLET PO SCH (09:17)
[2024-04-30 10:13] LABS: Basophils # (auto) 0.02 K/uL (0.00-0.20); Basophils % (auto) 0.2 %; Hematocrit (blood only) 39.1 % (37.0-47.0); Hemoglobin 12.9 g/dl (12.0-16.0); Immature Granulocytes # (auto) 0.07 K/uL (0.01-0.20); Immature Granulocytes % (auto) 0.6 %; Lymphocytes # (auto) 0.86 K/uL (1.20-3.40); Lymphocytes % (auto) 7.1 %; Mean Corpuscular Hemoglobin 27.5 pg (25.0-34.0); Mean Corpuscular Volume 83.4 fL (80.0-100.0); Monocytes # (auto) 0.47 K/uL (0.11-0.59); Monocytes % (auto) 3.9 %; Neutrophils # (auto) 10.77 K/uL (1.40-6.50); Neutrophils % (auto) 88.2 %; Platelet Count 213 K/uL (130-400); RDW Coefficient of Variation 13.5 % (11.5-14.5); RDW Standard Deviation 40.7 fL (36.4-46.3); Red Blood Count 4.69 M/uL (4.20-5.40); White Blood Count 12.19 K/ul (4.8-10.8)
[2024-04-30 10:30] LABS: Albumin Globulin Ratio 1.2 (0.9-2); BUN Creatinine Ratio 15.9 (10-20); Bilirubin,Total 0.5 mg/dl (0.2-1.0); Calcium 9.5 mg/dl (8.6-10.3); Creatinine Clr Calc Pharmacy 118.1 ml/min; Globulin 3.3 gm/dl (2.5-4.0); Potassium 4.1 mmol/L (3.5-5.1); Total Protein 7.3 gm/dl (6.0-8.3)
--- NOTE | 2024-04-30 14:10 | Discharge Summary ---
Date of Service April 30, 2024 Admission HPI Per Admitting Provider Patient is 49 year old female with PMH ankylosing spondylitis, seronegative polyarthritis, HLD, depression, anxiety, GERD, fatty liver disease presented to ER with c/o sore throat x 3 days. Reports fever started yesterday. Throat is more sore past 24 hours and pain with swallowing. Is able to swallow saliva but is painful. Taking chronic diclofenac with minimal relief. Seen in outpatient clinic today for sore throat and per chart review rapid strep negative today. PCR is pending. One month ago with sore throat and swollen tonsils with reported negative strep test and positive mono test. States was treated with cefdinir. Denies N/V/D/C, BUNCH, dizziness, syncope, vision changes, CP, SOB, cough, otalgia, rhinorrhea, abdominal pain, extremity weakness, extremity edema, rashes, urinary symptoms. Admission Exam Per Admitting Provider General: no distress, obese Head: normocephalic, atraumatic Eyes: conjunctiva non-injected, anicteric ENT: normal inspection external ears, nose, mucous membranes moist, +tonsillar edema with left greater than right, left tonsillar exudate, +soft palate edema left Neck: supple, trachea midline, +tender cervical lymphadenopathy Lungs: clear, no respiratory distress, no wheezing/rhonchi/rales CV: tachycardia, rate 102, no pretibial edema Abd: protuberant, normal BS, soft, non-tender Ext: no cyanosis, no calf tenderness Neuro: A&O x 3, no focal deficits noted, normal affect Skin: warm, dry Principal Diagnosis Peritonsillar abscess Discharge Exam Constitutional: WD/WN, vitals as above, NAD, sitting up in bed, pleasant, conversing easily Throat; slight tonsillar edema on the left side. Respiratory: normal respiratory effort, lungs clear to auscultation, no wheeze, rales, rhonchi. Normal insp/exp effort, no accessory muscle use Cardiovascular: RRR, no murmur, no edema Vessels: no JVD or carotid bruit Chest: normal inspection of chest Abdomen: normal bowel sounds, soft, nontender, no hepatosplenomegaly Musculoskeletal: no cyanosis or clubbing, extremities motor strength 5/5 Skin: no rashes, warm and dry normal turgor Neurologic: PERRL, EOMI, accommodation nl, no face palsy, no dysarthria CN's II- XI intact bilaterally and moves all extremities Psychiatric: A+Ox3, euthymic affect Discharge Data Allergies Allergy/AdvReac Type Severity Reaction Status Date / Time amoxicillin Allergy Rash Verified 04/13/24 08:35 contact metal agent AdvReac contact Verified 04/13/24 08:35 dermatitis Consultations 04/29/24 16:54 ED Decision to Admit Stat 04/29/24 18:05 Consult Otolaryngology (Head and Neck) Routine Ordered Studies 04/29/24 13:56 CT soft tissue neck w con Stat Hospital Course (1) Peritonsillar abscess: (2) Tonsillitis: (3) Elevated blood pressure reading: (4) Ankylosing spondylitis: (5) Hyperlipidemia: (6) Anxiety and depression: (7) Tobacco use: Plan Patient is 49 year old female with PMH ankylosing spondylitis, seronegative polyarthritis, HLD, depression, anxiety, GERD, fatty liver disease presented to ER with c/o sore throat x 3 days, fever x [address] soft Tissue of the neck showed acute tonsillitis with 2.5 cm left peritonsillar abscess. Patient was evaluated by ENT and underwent bedside I&D. Patient reported significant improvement in pain, discomfort and was eager to go home. Patient was discharged home on 10-day course of Cefuroxime. Discussed side effects/adverse reaction. Discussed increased risks of recurrence. Patient verbalized understanding. Patient to follow-up with ENT and PCP after discharge Please note the above document was generated using voice recognition software. It may contain grammatical, syntax or spelling errors. Any formal questions or concerns about the content, text or information contained within the body of this dictation should be directly addressed to the provider for clarification Total Time Total Time Spent Total Time Spent (In Minutes): 45 Total Time Includes: Examination of the Patient, Discharge Planning, Medication Reconciliation, Communication With Other Providers and Other Discharge Plan Discharge Items Patient Disposition: Home - Self-Care Reason For Visit: PERITONSILLAR ABSCESS Discharge Diagnosis: Peritonsillar abscesses status postdrainage Condition on Discharge: Good Activity: Resume your previous activity Non-emergency contact: Primary Care Provider Call non-emergency contact if: you have any medication questions and your symptoms worsen Follow-up/Referrals: Zayda Hardy MD [Primary Care Provider] - (Date & Time 05/07/2024 11:20 AM Provider: Zayda Hardy MD Family Medicine [facility] ) Diet: Regular Addtl Attending Provider Instructions: You were admitted to the hospital due to peritonsillar abscess. You underwent drainage by ENT Dr. Bill Rossi. You are prescribed cefuroxime 250 mg to be taken twice a day for next 10 days. Take probiotics while on antiboitics Follow-up with Dr. Rossi. Follow-up with your primary care doctor Pending Studies at Discharge: No Stand-Alone Forms: My [facility] [employer], Smoking Cessation Medications and DC Order Prescriptions: New Advanced Probiotic 625 mg (10 billion cell) Capsule 2 cap PO DAILY 10 Days Qty: 20 0RF cefuroxime axetil 250 mg tablet 250 mg PO BID 10 Days Qty: 20 0RF Continued atorvastatin [Lipitor] 20 mg Tablet 20 mg PO QAM pantoprazole [Protonix] 40 mg Tablet,Delayed Release (Dr/Ec) 40 mg PO QAM diclofenac sodium 75 mg Tablet,Delayed Release (Dr/Ec) 75 mg PO BID bupropion HCl [Wellbutrin XL] 300 mg Tablet Extended Release 24 Hr 300 mg PO QAM pregabalin [Lyrica] 100 mg Capsule 100 mg PO BID levocetirizine [Xyzal] 5 mg Tablet 5 mg PO QAM Taltz Autoinjector 80 mg/mL Auto-Injector 80 mg SUBCUT UD Rx Instructions: every 4 weeks Discharge Orders: Discharge Order (Routine); Ordered 04/30/24 Ordered By: Michael Woodruff Admission Data Admit Date/Time: 04/29/24 17:09 Attending Provider: Michael Woodruff Admit Provider: Kylah Ramsey Primary Care Provider: Zayda Hardy Other Providers: Kylah Ramsey; Bill Rossi Other Interventions: Discharge Summary Assessment (RN) Last Done: 04/30/24 10:35
== END 2024-04-30 10:55 | disposition home or self-care (01) | DRG 144 ==
LOC: ED 13:39 → 2W 17:09 → SUATTDRO 17:09 → 2W 17:44